=== PATIENT | male | born 1955 | race Caucasian/White ===

== ENCOUNTER 2020-09-06 12:04 | Observation (INO) ==
[2020-09-06] MEDS ORDERED: MIDAZOLAM HCL 5 MG/ML 1 ML VIAL ONE (13:10)
[2020-09-06] MEDS ORDERED: fentaNYL citrate 100 MCG/2 ML VIAL ONE (13:11)
[2020-09-06] MEDS ORDERED: HEPARIN (PORCINE) 1000 UNIT/ML 10 ML (CATH LAB USE ONLY) ONE (13:11)
[2020-09-06] MEDS ORDERED: niCARdipine HCL INJ 2.5 MG/ML 10 ML AMP ONE (13:11)
[2020-09-06] MEDS ORDERED: NITROGLYCERIN/D5W 100MCG/ML 20ML SYR ONE (13:12)
--- NOTE | 2020-09-06 13:24 | Pre Anesthesia Assessment ---
Date of Service September 06, 2020 Pre Sedation Assessment Vital Signs Temp Pulse Resp BP Pulse Ox 09/06/20 12:20 97.3 F L 62 18 222/102 H 99 Cardiovascular RRR, no murmur, no edema Respiratory normal respiratory effort, lungs clear to auscultation Pre-Sedation Airway Assessment Smoking Status: Never smoker Hx Sleep Apnea: No Hx Difficult Intubation: No Short, Thick Neck: No Thyromental Distance: > or= 3.5 Finger Breadths Oral Cavity: + WNL Mallampati Class: II ASA: ASA2 NPO Status Date of Last Intake of Fluids: 09/06/20 Time of Last Intake of Fluids: 10:00 Date of Last Intake of Solid Food: 09/05/20 Time of Last Intake of Solid Foods: 22:00 Procedure Planning Contraindications for Sedation: none Current Medications Reviewed: Yes Notes The planned sedation has been discussed with the patient. Informed Consent was obtained. I have identified the patient, determined the appropriateness of sedation and have assessed the patient immediately prior to the procedure. All medicine(s) and interventions are by my order.
--- NOTE | 2020-09-06 13:25 | History & Physical Bridge Note ---
Date of Service September 06, 2020 History & Physical Bridge Note I have examined the patient, reviewed the History & Physical and in the interval since the performance of the History & Physical I have noted the following changes of clinical significance: no changes noted
[2020-09-06] MEDS ORDERED: hydrALAZINE HCL 20 MG/ML VIAL ONE (14:54)
[2020-09-06] MEDS ORDERED: ACETAMINOPHEN 325 MG TAB PO PRN (15:49)
[2020-09-06] MEDS ORDERED: ONDANSETRON INJ 2 MG/ML 2 ML VIAL IV PRN (15:49)
[2020-09-06] MEDS ORDERED: CLOPIDOGREL BISULFATE 300 MG TAB PO STA (15:54)
--- NOTE | 2020-09-06 15:55 | Post Anesthesia Assessment ---
Date of Service September 06, 2020 Post Sedation Assessment Vital Signs Temp Pulse Resp BP Pulse Ox 09/06/20 15:46 60 15 99/53 L 98 09/06/20 12:20 97.3 F L 62 18 222/102 H 99 Recovery Score Activity: Moves 4 extremities Respiration: Deep Breath/Cough Circulation: +/-20% PreAnes Value Consciousness: Fully Awake Oxygen Saturation: > 92% On Room Air Post Anesthesia Score: 10 Discharge Sedation Level of Care: Fast Track Phase II Post Sedation Plan On clinical assessment, the patient appears to have tolerated the sedation without complications. Patient is recovering as anticipated. Patient will continue to be monitored by nursing and may be discharged when sedation discharge criteria are met per below protocol. Upon Completions of procedure up to 15 minutes continue every 5 minute vital signs and the P.A.R. score; then discharge to a Phase I or Fast Track to Phase II per the following guidelines: * Discharge Patient to appropriate Phase II area if PAR is 8 or greater or retur n to pre- procedure baseline. The post - procedure orders will be as directed. * If PAR score is less than 8 or not return to pre-procedure baseline then patient will follow Phase I monitoring till PAR is reached for Phase II. The Phase I may be done in procedure room or may call to secure a Phase I area. * If naloxone or flumazenil are used for reversal, hold in Phase I for continued monitoring from when last reversal dose was given for a minimum of 60 minutes or longer pending the nurse and/or physician discretion of patient condition before discharge to Phase II. Please call the Sedation Physician to re-evaluate and complete post-note for discharge to Phase II area. Do NOT discharge from procedure sedation or Phase 1 until post- sedation evaluation note is complete by procedure /sedation MD Sedation Discharge Instructions to be given to the patient at discharge to home.
[2020-09-06] MEDS ORDERED: LOSARTAN POTASSIUM 25 MG TAB PO SCH (16:00)
[2020-09-06] MEDS ORDERED: SODIUM CHLORIDE 0.9% 1000ML 1,000 ML IV SCH (16:00)
--- NOTE | 2020-09-06 16:03 | Post Operative Brief Note ---
PG Immediate Post Op with CF Date of Surgery September 06, 2020 Pre & Post Diagnosis Peripheral artery disease I identified the patient and participated in the time-out.: No Procedure Operation Date: 09/06/20 13:00 Actual Procedures p Angio Extremity Unilateral - Lauro Montejo MD s SC IVUS Noncoronary Initial - MD mary Hennessy Ultrasound Vascular Access - MD mary Hennessy Fem Pop Stent Balloon - MD mary Hennessy Placement Art Occlusive Device - Lauro Montejo MD Surgeon Jordy Montejo MD Chief Medical Director Deibler Estimated Blood Loss 15 Findings Consistent with Post-Op Diagnosis Occluded mid SFA and distal SFA/popliteal stents Angioplasty of SFA to popliteal with 2 drug-eluting balloons Stent placement to proximal SFA (7 x 120 SES) Specimens Specimen Description: none Drains Other Anesthesia Type RN Sedation Complications none Disposition Accompanied Patient To Recovery: No Disposition: PCU Overlapping Procedure I was present for: the critical portions of procedure. I was immediately available: during the entire case. Back up surgeon: was not required during procedure.
[2020-09-06] MEDS ORDERED: CLOPIDOGREL BISULFATE 300 MG TAB ONE (16:05)
--- NOTE | 2020-09-06 23:31 | Endovascular Procedure Note ---
PG Endovascular Procedure Rpt Pre & Post Diagnosis Operation Date: 09/06/20 13:00 <No data on this case meets the specified criteria> I identified the patient and participated in the time-out.: Yes Procedure Operation Date: 09/06/20 13:00 Actual Procedures p Angio Extremity Unilateral - MD mary Hennessy SC IVUS Noncoronary Initial - MD mary Hennessy Ultrasound Vascular Access - MD mary Hennessy Fem Pop Stent Balloon - MD mary Hennessy Placement Art Occlusive Device - Lauro Montejo MD Surgeon Jordy Montejo MD Heat Treat Technician Deibler Estimated Blood Loss 15 Findings Consistent with Post-Op Diagnosis Abdominal aorta--no significant aneurysmal or stenotic disease Right lower extremity-- -Common iliac, external iliac, internal iliac widely patent -GROUP HOME COUNSELOR, profunda widely patent -SFA 100% lateproximal occlusion extending through previous SFA/popliteal stents. -Popliteal reconstitutes in the midsegment with mild disease. 50% distal disease just prior to takeoff of GORAN. -GORAN 60 to 70% proximal stenosis, mid/distal vessel widely patent to the foot -SUPERVISOR [employer] TEXTILE 50% proximal, 100% occlusion in the midsegment Proneal widely patent to the ankle Left lower extremity-- -Common iliac, external iliac, internal iliac widely patent -GROUP HOME COUNSELOR, profunda widely patent Anesthesia Type RN Sedation Radiation Exposure (mGv) Radiation (mGy): 20.7 Contrast Contrast: 120 Complications none Disposition Accompanied Patient To Recovery: Yes Disposition: PCU Description of Procedure Left GROUP HOME COUNSELOR obtained under ultrasound guidance, short 5Fr sheath placed Abdominal aortogram and proximal right lower extremity angiogram performed with RIM catheter. Selective angiography with angled glide catheter placed in proximal SFA 6 Fr 45 cm destination sheath placed from left GROUP HOME COUNSELOR to right SFA. SFA occlusion crossed with angled glide catheter, glide advantage wire and standard J-wire. Intraluminal position distally confirmed via injection through glide catheter. 0.35 wire exchanged for a V 18 wire [employer] Art IVUS catheter placed in the popliteal. Pullback revealed diffuse chronic thrombus/atherosclerotic disease extending throughout stents to proximal SFA. Wire appeared to cross subintamally in proximal SFA before stent on IVUS. Consideration given to Rotarex but not used due to non-intraluminal wire segment. Angioplasty of occluded SFA to popliteal with 4.0 Proximal SFA to popliteal treated with 6.0 x 150, 6.0 x 220 Lutonix drug-eluting balloons Evidence of residual dissection in proximal SFA prior to stent. Proximal SFA stented with 7.0 x 120 self-expanding stent overlapping proximal aspect of prior stents. New stent and mid SFA stent postdilated with 7.0 balloon IA vasodilators administered Questionable spasm/thrombus and popliteal after stent Popliteal dilated with 5.0 balloon with good angiographic result and no apparent residual stenosis/dissection Post procedure good angiographic result, well-expanded stents, no evidence of dissection, brisk two-vessel runoff to the foot. Contrast used: 120 Moderate sedation: [id number] Access closure: Star close Summary: 1. Right lower extremity --100% occluded proximal SFA, mid SFA to popliteal stents with reconstitution in the mid popliteal and two-vessel runoff to the foot (occluded mid SUPERVISOR [employer]BE[employer] TEXTILE, 60 to 70% proximal GORAN). 2. Left lower extremity --widely patent iliacs, GROUP HOME COUNSELOR 3. Successful angioplasty of proximal SFA and mid SFA/popliteal in-stent occlusion with 2 drug-eluting balloons (6.0 x 150, 6.0 x 220 Lutonix) and stenting of proximal SFA with a 7.0 x 120 mm self-expanding stent. Recommendations: Continue clopidogrel and Xarelto 2.5 mg twice daily Follow-up non-invasive vascular testing in 2 weeks. I attest to the content of the Intraoperative Record and any orders documented therein. Any exceptions are noted below. Vascular Charges Angiography/Venography Procedure 1: Angiography/Venography charges: [id number] Initial 3rd order or selective abd, pelvic, or LE branch Lower Extremity Interventions Procedure 1: Lower Extremity Intervention charges: [id number] Stent placement(s), femoral, popliteal artery(s), unilateral Additional Services Procedure 1: Additional Services Charges: 80666 Ultrasound guidance - vascular access Procedure 2: Additional Services Charges: 10804 Intravascular ultrasound; initial noncoronary vessel Procedure 3: Additional Services Charges: 35645 Moderate sedation initial 15 min Procedure 4: Additional Services Charges: 41509 Moderate sedation, each additional 15 min
--- NOTE | 2020-09-06 23:46 | Discharge Summary ---
Date of Service September 06, 2020 Admission HPI Per Admitting Provider Patient returns for right lower extremity angiogram in the setting of critical limb ischemia and diabetic foot ulceration. Specialty Data Specialty Data 1. Right lower extremity --100% occluded proximal SFA, mid SFA to popliteal stents with reconstitution in the mid popliteal and two-vessel runoff to the foot (occluded mid LAWN TECHNICIAN, 60 to 70% proximal GORAN). 2. Left lower extremity --widely patent iliacs, CHIEF ENGINEER PRODUCTION 3. Successful angioplasty of proximal SFA and mid SFA/popliteal in-stent occlusion with 2 drug-eluting balloons (6.0 x 150, 6.0 x 220 Lutonix) and stenting of proximal SFA with a 7.0 x 120 mm self-expanding stent. Discharge Data Procedures Performed Operation Date: 09/06/20 13:00 Actual Procedures p Angio Extremity Unilateral - Lauro Mnotejo MD s SC IVUS Noncoronary Initial - MD mary Hennessy Ultrasound Vascular Access - MD mary Hennessy Fem Pop Stent Balloon - MD mary Hennessy Placement Art Occlusive Device - Lauro Montejo MD Hospital Course (1) PAD (peripheral artery disease): Right lower extremity angiogram revealed 100% proximal SFA occlusion with reconstitution in the mid popliteal artery and two-vessel distal runoff (GORAN, peroneal). Underwent endovascular invention with angioplasty of SFA to popliteal with 2 drug-eluting balloons. Proximal SFA was stented with a single self-expanding stent. Post procedure patient was admitted for brief observation. He had no apparent access site complications. Denied significant pain. Discharged home on clopidogrel and PAD dose Xarelto. Follow-up in 2 weeks with repeat noninvasive vascular testing. Continued wound care. Discharge Instructions Home Medications atorvastatin 40 mg tablet 40 mg PO HS 11/18/18 [History Confirmed 09/06/20] losartan 25 mg tablet 12.5 mg PO QAM tab 11/18/18 [History Confirmed 09/06/20] metformin 850 mg tablet 850 mg PO TID 11/18/18 [History Confirmed 09/06/20] metoprolol succinate 50 mg capsule sprinkle, ext. release 24 hr 50 mg PO QAM 11/18/18 [History Confirmed 09/06/20] multivitamin 1 cap PO QAM 11/18/18 [History Confirmed 09/06/20] nitroglycerin 0.4 mg sublingual tablet 0.4 mg SL Q5M PRN 11/18/18 [History Confirmed 09/06/20] ascorbic acid (vitamin C) [Vitamin C] 500 mg PO QAM 04/20/20 [History Confirmed 09/06/20] cholecalciferol (vitamin D3) [Vitamin D3] 25 mcg PO QAM 04/20/20 [History Confirmed 09/06/20] glipizide 5 mg PO QAM 04/20/20 [History Confirmed 09/06/20] clopidogrel 75 mg PO QAM 04/28/20 [History Confirmed 09/06/20] rivaroxaban [Xarelto] 2.5 mg PO BID #60 tab 09/06/20 [Rx] Coding Level of Care Code 40973 OBS Care - Discharge Diagnoses PAD (peripheral artery disease) I73.9
[2020-09-07] MEDS ORDERED: CLOPIDOGREL BISULFATE 75 MG TAB PO SCH (09:00)
== END 2020-09-06 20:50 | disposition home or self-care (01) ==
LOC: 2S 12:04 → CC 12:04
PROC: CLB.AEU (2020-09-06 13:00)

== ENCOUNTER 2020-09-21 13:57 | Inpatient (IN) ==
[2020-09-21] MEDS ORDERED: Heparin IV Adult Wt-Based Standard WITH Bolus Protocol IV STA (13:59)
[2020-09-21] MEDS ORDERED: HEPARIN SOD (PORCINE) 1000 UNIT/ML IV ONE (14:14)
[2020-09-21] MEDS ORDERED: HEPARIN SODIUM/DEXTROSE 25,000 UNITS/500 ML BAG IV SCH (14:15)
[2020-09-21 14:35] LABS: Basophils # (auto) 0.02 K/uL (0-0.2); Basophils % (auto) 0.2 %; Eosinophils % (auto) 1.6 %; Hemoglobin 12.5 g/dL (14.0-18.0); Immature Granulocytes # (auto) 0.07 K/uL (0.00-0.02); Immature Granulocytes % (auto) 0.5 %; Lymphocytes # (auto) 2.72 K/uL (1.2-3.4); Lymphocytes % (auto) 21.4 %; Mean Corpuscular Hemoglobin 27.9 pg (25-34); Mean Corpuscular Hgb Conc 32.9 g/dL (32-36); Mean Corpuscular Volume 84.8 fL (80-100); Mean Platelet Volume 9.8 fL (7.4-10.4); Monocytes # (auto) 0.97 K/uL (0.11-0.59); Monocytes % (auto) 7.6 %; Neutrophils # (auto) 8.75 K/uL (1.4-6.5); Neutrophils % (auto) 68.7 %; Platelet Count 411 K/uL (130-400); RDW Coefficient of Variation 13.4 % (11.5-14.5); RDW Standard Deviation 41.4 fL (36.4-46.3); Red Blood Count 4.48 M/uL (4.7-6.1); White Blood Count 12.73 K/uL (4.8-10.8)
[2020-09-21 14:50] LABS: INR 1.1 (0.9-1.1); Partial Thromboplastin Time 27.2 Seconds (21.0-31.0); Prothrombin Time 10.7 Seconds (9.0-12.0)
[2020-09-21 14:53] LABS: Alanine Aminotransferase 29 U/L (12-78); Albumin Level 4.2 gm/dl (3.4-5.0); Aspartate Aminotransferase 17 U/L (15-37); BUN Creatinine Ratio 17.8 (10-20); Blood Urea Nitrogen 19 mg/dl (7-18); Calcium 9.8 mg/dl (8.5-10.1); Carbon Dioxide 25 mmol/L (21-32); Chloride 104 mmol/L (98-107); Creatinine Clr Calc Pharmacy 66.7 ml/min; Est GFR (African American) 83.4 ml/min; Glucose 114 mg/dl (70-99); Lipase 366 U/L (73-393); Potassium 4.4 mmol/L (3.5-5.1); Sodium 136 mmol/L (136-145)
--- NOTE | 2020-09-21 14:54 | Emergency Department Note ---
Impression & Plan Arterial occlusion, lower extremity, Acute leg pain, Leukocytosis ED Provider Note NAME: LYNDA ANNE AGE: 65 SEX: M : 1955 ARRIVES VIA: Walk-In INFORMANT: Patient, Dr. Montejo ED PROVIDER(S): Gato Dial DO CHIEF COMPLAINT: R leg pain HPI: Patient is a 65-year-old male who is status post endovascular intervention of right SFA/popliteal arteries on 09/06/20. Patient presented in follow-up to cardiovascular Dr. Montejo's office and was found to have evidence of limb ischemia. They performed an ultrasound which showed occlusion of SFA/popliteal arteries with severely diminished flow in the TPT/GORAN. Toe pressure undetectable. Also has worsening of his heel wound and a new right 5th digit ulcer. Patient was referred to the emergency department for hospital admission. He denies all other complaints. Pain is currently only a 2 out of 10 in the leg. It is worse with exertion. Denies any headache or change in vision. No chest pain or shortness of breath. No nausea vomiting or diarrhea. ROS: See above HPI for pertinent positives & negatives. A total of 10 systems reviewed and were otherwise negative. PAST MEDICAL HISTORY:See Below PAST SURGICAL HISTORY:See Below FAMILY HISTORY:See Below SOCIAL HISTORY:See Below HOME MEDICATIONS:See Below ALLERGIES:See Below VITALS:See Below PHYSICAL EXAMINATION: GENERAL: Sitting up in bed, alert, well appearing, well nourished, no distress, non-toxic EYE EXAM: normal conjunctiva. OROPHARYNX: no exudate, no erythema, lips, buccal mucosa, and tongue normal and mucous membranes are moist NECK: supple, no nuchal rigidity, no adenopathy, non-tender LUNGS: Clear to auscultation. Normal chest wall mechanics HEART: no murmurs, S1 normal and S2 normal ABDOMEN: abdomen soft, non-tender, normo-active bowel sounds, no masses, no rebound or guarding. UPPER EXTREMITIES: upper extremities are grossly normal. LOWER EXTREMITIES: Right lower extremity is cool to the touch. DP and PT not palpable on the right lower extremity. Flexion extension of the hip knee and ankle intact. Skin is intact. Ulcer of the right heel. NEURO EXAM: Normal sensorium, cranial nerves II-XII grossly intact, normal sp eech, no gross weakness of arms, no gross weakness of legs. MEDICAL DECISION MAKING: Patient is a 65-year-old male who was seen in the office by Dr. Montejo and had an ultrasound done which showed occlusion of SFA/popliteal arteries with severely diminished flow in the TPT/GORAN. Dr. Montejo called over to inform me of this and requested IV heparin and once the [facility] is open they will take him upstairs to perform intra-arterial thrombolysis later today. IV was established blood work was obtained. Labs show mild leukocytosis of 12,000. No significant anemia. INR was unremarkable. BMP with LFTs bilirubin and lipase was unremarkable. Covid was pending. Dr. Montejo requested no additional studies. Discussed with the hospitalist the patient will be admitted to Dr. Vela service and will go to [facility] for interventional thrombolysis shortly. Of note he denies any bleeding risk factors including dark tarry stools, bright red blood per rectum, coughing up blood, vomiting blood, urinating blood, recent trauma or surgery or any previous brain bleeds. Triage Nursing notes reviewed. Limited review of prior medical records performed Vital Signs: reviewed and remarkable for HTN. Differential diagnosis: DVT, musculoskeletal, infection, joint effusion, trauma, lymphedema, idiopathic, CHF, ischemia, arterial occlusion as well as other pathologies. ER treatment provided: See below Diagnostics interpreted by me: Cardiac Monitoring: An order was placed for continuous cardiac monitoring. The monitor shows a rate of 62 with sinus rhythm. Laboratory studies: As stated above and show below. Imaging studies: See below Consultation(s): Discussed with Dr. Montejo recommended heparin and he will taken to the [facility] Discussed with Yanna who is working with Dr. Vela for admission Procedures: none Critical Care: I have personally spent 31 minutes of critical care time in the direct management of this patient. This includes bedside care, interpretation of diagnostic studies, and testing, discussion with consultants, patient, and family members, and other required patient management activities. This 31 minutes is in excess of all separately billable procedures. Past Med/Surg History Medical History Anemia CAD (coronary artery disease) 2007 CABG x 2, MONET-LAD, SVG-ramus. Complicated by post-op pericarditis. Diabetes mellitus NIDDM Diabetic ulcer of right heel currently under care of wound clinic. History of cardiac arrest 06/2010, rec'd multiple AED shocks with ROSC. Cath showed patent grafts and preserved LV function EF 55-59%. ICD placed 07/10/10. History of pericarditis HTN (hypertension) Hyperlipemia, mixed ICD (implantable cardioverter-defibrillator) in place recently changed 04/21/[address] Morales at [facility] Myocardial infarction On anticoagulant therapy plavix daily PAD (peripheral artery disease) Personal history of diabetic foot ulcer Rosacea Surgical History H/O hand surgery History of angioplasty Dr. Montejo 04/23/20 @ [facility] d/t PAD--per pt reason for plavix History of ankle surgery ORIF Left ankle History of colonoscopy History of tonsillectomy Hx of CABG x2 vessels, ~2009. TREVOR Knight. Follows with Dr. Vega. S/P placement of cardiac pacemaker Family History Other No family history of adverse response to anesthesia Social History Smoking Status: Never smoker Second Hand Exposure: No; Hx Alcohol Use: No Hx Substance Use: No Preferred Language: Micronesian Communication Ability: Effective Visual Impairment: Partially Limited Hearing Ability: Normal Riprap Placing Supervisor Required: No Beliefs That Will Affect Care: None marital status: Current Living Situation: Spouse current occupational status: employed current occupation: [employer] Feels Safe at Home: Yes Assistive Devices: None Allergies Allergies Allergy/AdvReac Type Severity Reaction Status Date / Time penicillin G Allergy Intermediate Rash Verified 09/06/20 15:59 Home Meds Home Medications Medication Instructions Recorded Confirmed atorvastatin 40 mg tablet 40 mg PO HS 11/18/18 09/06/20 losartan 25 mg tablet 12.5 mg PO QAM tab 11/18/18 09/06/20 metformin 850 mg tablet 850 mg PO TID 11/18/18 09/06/20 metoprolol succinate 50 mg capsule 50 mg PO QAM 11/18/18 09/06/20 sprinkle, ext. release 24 hr multivitamin 1 cap PO QAM 11/18/18 09/06/20 nitroglycerin 0.4 mg sublingual 0.4 mg SL Q5M PRN 11/18/18 09/06/20 tablet ascorbic acid (vitamin C) 500 mg 500 mg PO QAM 04/20/20 09/06/20 tablet (Vitamin C) cholecalciferol (vitamin D3) 25 25 mcg PO QAM 04/20/20 09/06/20 mcg (1,000 unit) tablet (Vitamin D3) glipizide 5 mg tablet 5 mg PO QAM 04/20/20 09/06/20 Previous Rx's Medication Instructions Recorded rivaroxaban 2.5 mg tablet (Xarelto) 2.5 mg PO BID #60 tab 09/06/20 tramadol 50 mg tablet 50 mg PO BID PRN #7 tab 09/07/20 clopidogrel 75 mg tablet 75 mg PO QAM #90 tab 09/15/20 Results & Data (ED) Vital Signs Vital Signs - 24 hr 09/21/20 14:01 Temperature 36.7 C Temperature Source Oral Pulse Rate 69 Pulse Rhythm Regular Pulse Strength Normal Respiratory Rate 16 Respiratory Effort / Characteristics Non-Labored Respiratory Depth Normal Respiratory Pattern Regular Blood Pressure 161/89 H Blood Pressure Mean 113 Blood Pressure Position Sitting Pulse Oximetry 98 Oxygen Delivery Method Room Air Sepsis Recent Fever Within 48 Hours No Sepsis New/Unexplained Change in Mental Status N/A Sepsis Action Taken by Nursing No Action Required Laboratory Data Result diagrams: 09/21/20 14:20 09/21/20 14:20 Lab Results 09/21/20 09/21/20 Range/Units 14:20 14:20 WBC 12.73 H (4.8-10.8) K/uL RBC 4.48 L (4.7-6.1) M/uL Hgb 12.5 L (14.0-18.0) g/dL Hct 38.0 L (42-52) % MCV 84.8 (80-100) fL MCH 27.9 (25-34) pg MCHC 32.9 (32-36) g/dL RDW Std Deviation 41.4 (36.4-46.3) fL RDW Coeff of Ella 13.4 (11.5-14.5) % Plt Count 411 H (130-400) K/uL MPV 9.8 (7.4-10.4) fL Immature Gran % (Auto) 0.5 % Neut % (Auto) 68.7 % Lymph % (Auto) 21.4 % [place] % (Auto) 7.6 % Eos % (Auto) 1.6 % Baso % (Auto) 0.2 % Neut # (Auto) 8.75 H (1.4-6.5) K/uL Lymph # (Auto) 2.72 (1.2-3.4) K/uL [place] # (Auto) 0.97 H (0.11-0.59) K/uL Eos # (Auto) 0.20 (0-0.5) K/uL Baso # (Auto) 0.02 (0-0.2) K/uL Immature Gran # (Auto) 0.07 H (0.00-0.02) K/uL PT 10.7 (9.0-12.0) Seconds INR 1.1 (0.9-1.1) APTT 27.2 (21.0-31.0) Seconds PTT Ratio 1.0 Administered Medications Heparin Sodium/Dextrose (Heparin Sodium/Dextrose) 25,000 units in 500 mls @ 0.02 mls/hr IV .Q24H MICHAEL; Protocol Stop: 10/21/20 14:14 Last Admin: 09/21/20 14:46 Dose: 1,250 units/hr, 25 mls/hr Documented by: [id number] Cosigned by: [id number] Discontinued Medications Heparin Sodium (Porcine) (Heparin Sod (Porcine) 1000 Unit/Ml) 1 units IV NOW ONE Stop: 09/21/20 14:15 Last Admin: 09/21/20 14:46 Dose: Not Given Documented by: [id number] Heparin Sodium/Dextrose (Heparin Iv Adult Wt-Based Standard With Bolus Protocol) 1 ea IV NOW STA; Protocol Stop: 09/21/20 14:00 Last Admin: 09/21/20 14:46 Dose: Not Given Documented by: [id number] Discharge Plan Visit Data Chief Complaint: Leg Injury/Pain Stated Complaint: RIGHT LEG PROBLEMS/NOT GETTING BLOOD FLOW - REF ED Provider: Gato Dial Discharge Problem: Arterial occlusion, lower extremity, Acute leg pain, Leukocytosis Forms Stand Alone Forms: My [facility] [employer] Prescriptions Prescriptions: No Action metformin 850 mg tablet 850 mg PO TID RF: 0 losartan 25 mg tablet 25 mg PO QAM RF: 0 metoprolol succinate 50 mg capsule,sprinkle,ER 24hr 75 mg PO QAM RF: 0 atorvastatin 40 mg tablet 40 mg PO HS RF: 0 nitroglycerin 0.4 mg tablet, sublingual 0.4 mg SL Q5M PRN (Reason: Chest Pain) RF: 0 multivitamin capsule 1 cap PO QAM RF: 0 tramadol 50 mg tablet 50 mg PO BID PRN (Reason: pain) Qty: 7 RF: 0 clopidogrel 75 mg tablet 75 mg PO QAM Qty: 90 RF: 1 ascorbic acid (vitamin C) [Vitamin C] 500 mg Tablet 500 mg PO QAM RF: 0 cholecalciferol (vitamin D3) [Vitamin D3] 25 mcg (1,000 unit) Tablet 25 mcg PO QAM RF: 0 glipizide 5 mg Tablet 5 mg PO QAM RF: 0 doxycycline hyclate 100 mg tablet 100 mg PO 3XWK RF: 0 Xarelto 2.5 mg tablet 2.5 mg PO BID Qty: 60 RF: 0 Referrals Referrals: Carol Stein MD [Primary Care Provider] - Discharge Problem: Acute leg pain Qualifiers: Laterality: right Qualified Code(s): M79.604 - Pain in right leg Leukocytosis Qualifiers: Leukocytosis type: unspecified Qualified Code(s): D72.829 - Elevated white blood cell count, unspecified
[2020-09-21 14:58] LABS: Albumin Globulin Ratio 0.9 (0.9-2); Alkaline Phosphatase 84 U/L (45-117); Bilirubin,Total 0.6 mg/dl (0.2-1); Globulin 4.6 gm/dl (2.5-4.0); Total Protein 8.8 gm/dl (6.4-8.2); Troponin I < 0.015 ng/ml (0-0.045)
--- NOTE | 2020-09-21 15:07 | History & Physical Report ---
Date of Service September 21, 2020 Assessment & Plan (1) Arterial occlusion, lower extremity: (2) Acute leg pain: (3) PAD (peripheral artery disease): Plan: This is a 65-year-old male with PMH of PAD with recent endovascular intervention with right SFA/popliteal arteries on 09/06/[address] Montejo, type 2 diabetes, dyslipidemia, hypertension, s/p pacemaker placement and other medical problems listed below who presents after vascular follow-up with right lower extremity pain and is s/p intra-arterial thrombolysis by Dr. Montejo. Presented to vascular follow up appointment today with evidence of acute limb ischemia Right lower extremity arterial duplex reveals occlusion of SFA/popliteal arteries with severely diminished flow in the TPT/GORAN S/p intra-arterial thrombolysis by Dr. Montejo with successful placement of TPA infusion catheter In ICU for further monitoring Mgmt per produce clerk, interventional cardiology (4) Diabetes mellitus, type II: Plan: A1c 10 in 2019 - repeat pending Hold home agents SSI while in-patient Glycemic consult placed BSG AC HS (5) HTN (hypertension): Plan: Continue home losartan, Toprol (6) CAD (coronary artery disease): Plan: Stable H/o CABG in 2007 Continue statin Code status: FULL PCP: Emil Dispo: Admitted to ICU Patient seen in collaboration with Dr. Vela. Please see addendum. History of Present Illness Chief Complaint: This is a 59 right lower extremity pain Primary Care Provider: Carol Stein MD This is a 65-year-old male with PMH of PAD with recent endovascular intervention with right SFA/popliteal arteries on 09/06/[address] Montejo, type 2 diabetes, dyslipidemia, hypertension, s/p pacemaker placement and other medical problems listed below who presents after vascular follow-up with right lower extremity pain. Developed pain in her right lower extremity 5 days following endovascular procedure on right lower extremity. Describes pain as tight and squeezing in foot as well as tender to touch on lateral aspect of broussard. Also with worsening wound on R heel and new wound on R 5th toe. Has been taking clopidogrel and Xarelto 2.5 mg twice daily since procedure. Was seen for vascular follow-up today with Doppler findings concerning for acute limb ischemia with plans for intra-arterial thrombolysis today. Patient was sherly william in ER prior to procedure in cardiovascular suite. States that pain in right lower extremity was a 7 out of 10 and had been since that morning. Otherwise, feeling well. Denied any fever, chills, lightheadedness, headache, chest pain, shortness of breath, nausea, vomiting, abdominal pain, dysuria, diarrhea or constipation. Follows with PCP Dr. Stein. Allergies Allergy/AdvReac Type Severity Reaction Status Date / Time penicillin G Allergy Intermediate Rash Verified 09/21/20 14:53 Home Medications Medication Instructions Recorded Confirmed Type losartan 25 mg tablet 12.5 mg PO QAM tab 11/18/18 09/21/20 History metformin 850 mg tablet 850 mg PO TID 11/18/18 09/21/20 History metoprolol succinate 50 mg capsule 75 mg PO QAM 11/18/18 09/21/20 History sprinkle, ext. release 24 hr nitroglycerin 0.4 mg sublingual 0.4 mg SL Q5M PRN 11/18/18 09/21/20 History tablet ascorbic acid (vitamin C) 500 mg 500 mg PO QAM 04/20/20 09/21/20 History tablet (Vitamin C) cholecalciferol (vitamin D3) 25 25 mcg PO QAM 04/20/20 09/21/20 History mcg (1,000 unit) tablet (Vitamin D3) glipizide 5 mg tablet 5 mg PO QAM 04/20/20 09/21/20 History rivaroxaban 2.5 mg tablet (Xarelto) 2.5 mg PO BID #60 tab 09/06/20 09/21/20 Rx tramadol 50 mg tablet 50 mg PO BID PRN #7 tab 09/07/20 09/21/20 Rx clopidogrel 75 mg tablet 75 mg PO QAM #90 tab 09/15/20 09/21/20 Rx atorvastatin 80 mg tablet 80 mg PO DAILY 09/21/20 09/21/20 History doxycycline hyclate 100 mg tablet 100 mg PO 3XWK 09/21/20 09/21/20 History multivitamin 1 tab PO QAM 09/21/20 09/21/20 History sitagliptin 100 mg tablet (Januvia) 100 mg PO DAILY 09/21/20 09/21/20 History Past Med/Surg History Medical History Anemia CAD (coronary artery disease) 2008 CABG x 2, MONET-LAD, SVG-ramus. Complicated by post-op pericarditis. Diabetes mellitus, type II Diabetic ulcer of right heel currently under care of wound clinic. History of cardiac arrest 06/2010, rec'd multiple AED shocks with ROSC. Cath showed patent grafts and preserved LV function EF 55-59%. ICD placed 07/10/10. History of pericarditis HTN (hypertension) Hyperlipemia, mixed ICD (implantable cardioverter-defibrillator) in place recently changed 04/21/[address] Morales at [facility] Myocardial infarction On anticoagulant therapy plavix daily PAD (peripheral artery disease) Rosacea Surgical History H/O hand surgery History of angioplasty Dr. Montejo 04/23/20 @ [facility] d/t PAD--per pt reason for plavix History of ankle surgery ORIF Left ankle History of colonoscopy History of tonsillectomy Hx of CABG x2 vessels, ~2009. TREVOR Knight. Follows with Dr. Vega. S/P placement of cardiac pacemaker Family History Other Diabetes No family history of adverse response to anesthesia Social History Smoking Status: Never smoker Second Hand Exposure: No; Hx Alcohol Use: No Hx Substance Use: No Preferred Language: Indonesian Communication Ability: Effective Visual Impairment: Partially Limited Hearing Ability: Normal Sales & Service Associate Required: No Beliefs That Will Affect Care: None marital status: Current Living Situation: Spouse current occupational status: employed current occupation: [employer] Other Information That Helps Us Care for You: No Feels Safe at Home: Yes Safety Concerns: Feels Safe At This Time Assistive Devices: None Review of Systems Review of Systems: At least ten systems reviewed and negative except as noted in the HPI. Physical Exam Physical Exam: General Appearance: WD/WN, vitals as above, NAD, sitting up in bed, pleasant, conversing easily Head: normocephalic, atraumatic Eyes: normal inspection, PERRL, conjunctivae normal, anicteric sclerae ENT: external ear and nose normal, oropharynx normal Neck: normal visual inspection, trachea midline, no thyromegaly Respiratory: normal respiratory effort, lungs clear to auscultation, no wheeze, rales, rhonchi. No accessory muscle use Cardiovascular: regular rate, rhythm, no murmur, normal peripheral pulses, no BLE edema. Vessels: no JVD Chest: normal inspection of chest Abdomen/GI: normal bowel sounds, soft, nontender, no hepatosplenomegaly Extremities/Musculoskeletal: R foot cool to touch, pain on palpation. Unable to palpate PT/DP pulses. Wound on R heel, new right 5th digit ulcer, diminished cap refill. Extremities motor strength 5/5 Neurologic: PERRL, EOMI, accommodation nl, no face palsy, no dysarthria, CN's II-XI intact bilaterally and moves all extremities Psychiatric: A+Ox3, euthymic affect Skin: no rashes, normal color, warm/dry Results & Data Results & Data ([facility]) Vital Signs (Past 12 Hours) Vital Signs Temp Pulse Resp BP Pulse Ox 09/21/20 14:01 36.7 C 69 16 161/89 H 98 Laboratory Results Short CBC 09/21/20 Range/Units 14:20 WBC 12.73 H (4.8-10.8) K/uL Hgb 12.5 L (14.0-18.0) g/dL Hct 38.0 L (42-52) % Plt Count 411 H (130-400) K/uL BMP 09/21/20 14:20 Sodium 136 Potassium 4.4 Chloride 104 Carbon Dioxide 25 BUN 19 H Creatinine 1.07 Glucose 114 H Calcium 9.8 Cardiac Enzymes 09/21/20 Range/Units 14:20 Troponin I < 0.015 (0-0.045) ng/ml Liver Function 09/21/20 Range/Units 14:20 Total Bilirubin 0.6 (0.2-1) mg/dl AST 17 (15-37) U/L ALT 29 (12-78) U/L Alkaline Phosphatase 84 (45-117) U/L Albumin 4.2 (3.4-5.0) gm/dl Supervising Physician Co-Signing Physician Notes Attending addendum: The patient was seen and examined in emergency room He is status post recent endovascular stenting of the right lower extremity and presented with pain and ischemia involving the right lower extremity Denies any other symptoms at presentation On examination In moderate pain Hemodynamically stable Chestclear to auscultate bilaterally HeartS1-S2, regular Abdomenbenign Extremitiesno edema, impaired sensation right lower extremity and no palpable pulses in foot CNSalert, awake and oriented x3 His admission labs and imaging studies reviewed Will have emergent thrombolysis and has been on intravenous heparin drip Agree with assessment and plan as outlined above by FRANCIS Hawk DR (1) Acute leg pain Laterality: right Qualified Code(s): M79.604 - Pain in right leg
[2020-09-21] MEDS ORDERED: HEPARIN (PORCINE) 1000 UNIT/ML 10 ML (CATH LAB USE ONLY) ONE (15:32)
[2020-09-21] MEDS ORDERED: MIDAZOLAM HCL 5 MG/ML 1 ML VIAL ONE (15:32)
[2020-09-21] MEDS ORDERED: niCARdipine HCL INJ 2.5 MG/ML 10 ML AMP ONE (15:32)
[2020-09-21] MEDS ORDERED: fentaNYL citrate 100 MCG/2 ML VIAL ONE ×2 (15:32→22:17)
[2020-09-21] MEDS ORDERED: NITROGLYCERIN/D5W 100MCG/ML 20ML SYR ONE (16:01)
[2020-09-21] MEDS ORDERED: HEPARIN 25000 UNIT/500 ML D5W IV ONE (17:10)
[2020-09-21] MEDS ORDERED: ALTEPLASE IV ONE (17:25)
[2020-09-21] MEDS ORDERED: RECOMBINANT IV ONE (17:25)
[2020-09-21] MEDS ORDERED: RECOMBINANT IV SCH (17:30)
[2020-09-21] MEDS ORDERED: SODIUM CHLORIDE 0.9% IV SCH (17:30)
[2020-09-21] MEDS ORDERED: ALTEPLASE IV SCH (17:30)
[2020-09-21] MEDS ORDERED: ACETAMINOPHEN 325 MG TAB PO PRN (17:43)
[2020-09-21] MEDS ORDERED: ONDANSETRON INJ 2 MG/ML 2 ML VIAL IV PRN (17:43)
--- NOTE | 2020-09-21 18:08 | Pre Anesthesia Assessment ---
Date of Service September 21, 2020 Pre Sedation Assessment Vital Signs Temp Pulse Pulse Resp BP BP Pulse Ox 09/21/20 15:35 68 18 139/82 96 09/21/20 14:01 98.1 F 69 16 161/89 H 98 Cardiovascular RRR, no murmur, no edema Respiratory normal respiratory effort, lungs clear to auscultation Pre-Sedation Airway Assessment Smoking Status: Never smoker Hx Sleep Apnea: No Hx Difficult Intubation: No Short, Thick Neck: No Thyromental Distance: > or= 3.5 Finger Breadths Oral Cavity: + WNL Mallampati Class: III ASA: ASA3 NPO Status Date of Last Intake of Fluids: 09/21/20 Time of Last Intake of Fluids: 08:00 Date of Last Intake of Solid Food: 09/21/20 Time of Last Intake of Solid Foods: 08:00 Procedure Planning Contraindications for Sedation: none Current Medications Reviewed: Yes Notes The planned sedation has been discussed with the patient. Informed Consent was obtained. I have identified the patient, determined the appropriateness of s edation and have assessed the patient immediately prior to the procedure. All medicine(s) and interventions are by my order.
--- NOTE | 2020-09-21 18:08 | Post Anesthesia Assessment ---
Date of Service September 21, 2020 Post Sedation Assessment Vital Signs Temp Pulse Pulse Resp BP BP Pulse Ox 09/21/20 15:35 68 18 139/82 96 09/21/20 14:01 98.1 F 69 16 161/89 H 98 Recovery Score Activity: Moves 4 extremities Respiration: Deep Breath/Cough Circulation: +/-20% PreAnes Value Consciousness: Fully Awake Oxygen Saturation: O2 needed for >90% Discharge Sedation Level of Care: Fast Track Phase II Post Sedation Plan On clinical assessment, the patient appears to have tolerated the sedation without complications. Patient is recovering as anticipated. Patient will continue to be monitored by nursing and may be discharged when sedation discharge criteria are met per below protocol. Upon Completions of procedure up to 15 minutes continue every 5 minute vital signs and the P.A.R. score; then discharge to a Phase I or Fast Track to Phase II per the following guidelines: * Discharge Patient to appropriate Phase II area if PAR is 8 or greater or return to pre- procedure baseline. The post - procedure orders will be as directed. * If PAR score is less than 8 or not return to pre-procedure baseline then patient will follow Phase I monitoring till PAR is reached for Phase II. The Phase I may be done in procedure room or may call to secure a Phase I area. * If naloxone or flumazenil are used for reversal, hold in Phase I for continued monitoring from when last reversal dose was given for a minimum of 60 minutes or longer pending the nurse and/or physician discretion of patient condition before discharge to Phase II. Please call the Sedation Physician to re-evaluate and complete post-note for discharge to Phase II area. Do NOT discharge from procedure sedation or Phase 1 until post- sedation evaluation note is complete by procedure /sedation MD Sedation Discharge Instructions to be given to the patient at discharge to home.
[2020-09-21] MEDS ORDERED: GLUCOSE 10 TABS/TUBE PO PRN (18:11)
[2020-09-21] MEDS ORDERED: CARBOHYDRATES FOR HYPOGLYCEMIA PO PRN (18:11)
[2020-09-21] MEDS ORDERED: GLUCAGON FOR INJ 1 MG VIAL SQ PRN (18:11)
[2020-09-21] MEDS ORDERED: DEXTROSE 50% 50 ML SYRINGE IV PRN (18:11)
[2020-09-21] MEDS ORDERED: POLYETHYLENE (MIRALAX) 17 GM PACK PO PRN (18:11)
[2020-09-21] MEDS ORDERED: GLUCOSE 40% GEL 15 GM TUBE PO PRN (18:11)
--- NOTE | 2020-09-21 18:12 | Post Operative Brief Note ---
PG Immediate Post Op with CF Date of Surgery September 21, 2020 Pre & Post Diagnosis PAD I identified the patient and participated in the time-out.: Yes Procedure Operation Date: 09/21/20 15:30 Actual Procedures p Angio Extremity Unilateral - Lauro Montejo MD Surgeon Jordy Montejo MD Combiner cheri salmeron deibler Estimated Blood Loss 10 Findings See Below Occluded SFA/popliteal. GORAN/peroneal reconstitutes via collaterals. Successful placement of TPA infusion catheter Anesthesia Type RN Sedation Complications none Disposition Accompanied Patient To Recovery: No Disposition: Surgical ICU Overlapping Procedure I was present for: the critical portions of procedure. I was immediately available: during the entire case. Back up surgeon: was not required during procedure.
--- NOTE | 2020-09-21 18:58 | Endovascular Procedure Note ---
PG Endovascular Procedure Rpt Pre & Post Diagnosis Peripheral arterial disease I identified the patient and participated in the time-out.: Yes Procedure Operation Date: 09/21/20 15:30 Actual Procedures p Angio Extremity Unilateral - Lauro Montejo MD Surgeon Jordy Montejo MD Director Of Supply Chain cheri salmeron deibler Estimated Blood Loss 10 Findings See Below Abdominal aorta--no significant aneurysmal or stenotic disease Right lower extremity-- -Common iliac, external iliac, internal iliac widely patent -LEAD ESTHETICIAN, profunda widely patent -SFA 100% ostial occlusion extending through previous SFA/popliteal stents. -GORAN reconstitutes proximally and widely patent to the foot. TPT reconstitutes prior to DIESEL TRUCK MECHANIC/peroneal bifurcation 60 to 70% proximal stenosis, mid/distal vessel -DIESEL TRUCK MECHANIC 100% occlusion in the midsegment Peroneal patent with sluggish flow to the ankle Left lower extremity-- -Common iliac, external iliac, internal iliac widely patent -LEAD ESTHETICIAN, profunda widely patent Anesthesia Type RN Sedation Radiation Exposure (mGv) Radiation (mGy): 240 Contrast Contrast: 30 Complications none none Disposition Accompanied Patient To Recovery: No Description of Procedure Left LEAD ESTHETICIAN obtained under ultrasound guidance, short 5Fr sheath placed Abdominal aortogram and proximal right lower extremity angiogram performed with RIM catheter. 6 Fr 45 cm destination sheath placed from left LEAD ESTHETICIAN to right LEAD ESTHETICIAN SFA occlusion crossed with quickcross catheter, glide advantage. 5Fr fountain infusion (20cm) catheter placed over 035 wire into SFA/popliteal Given 5 mg TPA bolus through infusion catheter Sheath/infusion catheter sutured and secured in place Contrast used: 30 Moderate sedation: [id number] Summary: 1. Right lower extremity --100% occluded ostial SFA through popliteal artery with reconstitution in proximal GORAN/TPT and two-vessel runoff to the foot (chronically occluded mid DIESEL TRUCK MECHANIC). 2. Left lower extremity --widely patent iliacs, LEAD ESTHETICIAN 3. Successful thrombolysis catheter placement to right SFA/popliteal artery. Recommendations: TPA infusion 0.5 mg/h overnight Heparin infusion through sheath Serial CBC, fibrinogen during TPA infusion Plan for repeat angiography and additional endovascular invention to right lower extremity tomorrow morning. I attest to the content of the Intraoperative Record and any orders documented therein. Any exceptions are noted below. Vascular Charges Angiography/Venography Procedure 1: Angiography/Venography charges: [id number] Initial 2nd order abd, pelvic or LE branch Thrombolysis/Mechanical Thrombectomy Procedure 1: Thrombolysis/Mechanical Thrombolysis charges: [id number] Transcath arterial infusion for thrombolysis, initial day Additional Services Procedure 1: Additional Services Charges: 66979 Ultrasound guidance - vascular access Procedure 2: Additional Services Charges: 67499 Moderate sedation initial 15 min Procedure 3: Additional Services Charges: 79583 Moderate sedation, each additional 15 min
[2020-09-21] MEDS: INSULIN ASPART 100 UNITS/ML 3 ML PEN SC SCH ×2 (19:10→20:15)
[2020-09-21] MEDS ORDERED: fentaNYL citrate 100 MCG/2 ML VIAL IV STA (19:45)
--- NOTE | 2020-09-21 19:46 | Critical Care Consultation ---
Date of Consultation September 21, 2020 Assessment & Plan (1) Admitted to intensive care unit: Reason Critically Ill: 65-year-old male with reocclusion injury of recent endovascular stenting to the RIGHT lower extremity status post endovascular intervention currently requiring ongoing TPA and heparin drips. NEURO - * CAM ICU: NEGATIVE * Pain: * Patient endorses pain to the RIGHT lower extremity. Likely pain with reperfusion. * Will provide as needed narcotics given degree of discomfort. CARDIAC/VASCULAR - * Acute occlusion of RLE SFA Stent: * s/p endovascular procedure. * Continue w/ Heparin/TPA gtts per provider. * Monitor distal pulses. * Pain control. * Monitor for s/s bleeding. * Hypertension, hyperlipidemia, coronary disease. * Continue home Rx as tolerated. * Monitor on telemetry. RESPIRATORY - * No reported history of pulmonary disease. * Saturating well on room air. GI/NUTRITION - * N.p.o. after midnight pending possible need for return to endovascular lab. RENAL/LYTES - * No significant electrolyte derangements. - * Townsend in place - Strict I&Os. ENDO - * DMII * BSGs per unit protocol. ISS --> gtt per unit policy. HEME - * Stable H&H * Monitor closely w/ trended H&Hs while Heparin/TPA gtts infusing. ID - * No concerns for infectious sources at this time. LINES/IV ACCESS - * PIVs x2 * LEFT Femoral arterial sheath. DVT PROPHYLAXIS - * Hold in the setting of TPA/Heparin infusion. * SCDs I have personally spent 37 minutes of critical care time in the direct managem ent of this patient. This is a life/limb threatening event. This includes time spent evaluating patient, direct bedside care, chart review, placing orders, interpretation of diagnostic studies, discussion with consultants, patient, and family members, as well as other required patient management activities. This time is exclusive of all separately billable procedures, and teaching time and separate from and in addition to any other critical care service time. Thank you for allowing us to participate in the care of this patient. Please refer to my attending physician's documentation for any further recommendations. (2) Arterial occlusion, lower extremity: (3) Acute leg pain: (4) PAD (peripheral artery disease): (5) Diabetic ulcer of right heel: (6) HTN (hypertension): (7) Diabetes mellitus, type II: (8) CAD (coronary artery disease): History of Present Illness Attending Physician: Richard Alas MD History of Present Illness Patient is a 65-year-old male with a significant past medical history of hypertension, diabetes, peripheral arterial disease, diabetic ulcers of the feet, neuropathy, and anemia. The patient presented to the emergency department today after a follow-up visit from his RIGHT SFA/popliteal artery endovascular intervention on 09/06. The patient was noted to have limb ischemia. Patient was started on a heparin drip and taken to the endovascular lab where he underwent angiography of the affected extremity which demonstrated 100% occlusion of the ostial SFA through popliteal artery. Patient had catheter sheath placed and transfusion of TPA and heparin were initiated. Patient brought to the ICU for close monitoring status post endovascular procedure with ongoing TPA/heparin drips. Upon evaluation, the patient is awake, alert, and oriented. He does have dopplerable dorsalis pedal pulse on the RIGHT. He complains of some moderate discomfort to the RIGHT heel. He reports the pain has progressed since intervention. Otherwise, patient denies any complaints of headaches, dizziness, lightheadedness, chest pain, palpitations, shortness of breath, nausea, vomiting, or abdominal discomfort. Allergies Allergy/AdvReac Type Severity Reaction Status Date / Time penicillin G Allergy Intermediate Rash Verified 09/21/20 14:53 Home Medications Medication Instructions Recorded Confirmed Type losartan 25 mg tablet 12.5 mg PO QAM tab 11/18/18 09/21/20 History metformin 850 mg tablet 850 mg PO TID 11/18/18 09/21/20 History metoprolol succinate 50 mg capsule 75 mg PO QAM 11/18/18 09/21/20 History sprinkle, ext. release 24 hr nitroglycerin 0.4 mg sublingual 0.4 mg SL Q5M PRN 11/18/18 09/21/20 History tablet ascorbic acid (vitamin C) 500 mg 500 mg PO QAM 04/20/20 09/21/20 History tablet (Vitamin C) cholecalciferol (vitamin D3) 25 25 mcg PO QAM 04/20/20 09/21/20 History mcg (1,000 unit) tablet (Vitamin D3) glipizide 5 mg tablet 5 mg PO QAM 04/20/20 09/21/20 History rivaroxaban 2.5 mg tablet (Xarelto) 2.5 mg PO BID #60 tab 09/06/20 09/21/20 Rx tramadol 50 mg tablet 50 mg PO BID PRN #7 tab 09/07/20 09/21/20 Rx clopidogrel 75 mg tablet 75 mg PO QAM #90 tab 09/15/20 09/21/20 Rx atorvastatin 80 mg tablet 80 mg PO DAILY 09/21/20 09/21/20 History doxycycline hyclate 100 mg tablet 100 mg PO 3XWK 09/21/20 09/21/20 History multivitamin 1 tab PO QAM 09/21/20 09/21/20 History sitagliptin 100 mg tablet (Januvia) 100 mg PO DAILY 09/21/20 09/21/20 History Patient History Medical History Anemia CAD (coronary artery disease) 2007 CABG x 2, MONET-LAD, SVG-ramus. Complicated by post-op pericarditis. Diabetes mellitus, type II Diabetic ulcer of right heel currently under care of wound clinic. History of cardiac arrest 06/2010, rec'd multiple AED shocks with ROSC. Cath showed patent grafts and preserved LV function EF 55-59%. ICD placed 07/10/10. History of pericarditis HTN (hypertension) Hyperlipemia, mixed ICD (implantable cardioverter-defibrillator) in place recently changed 04/21/[address] Morales at [facility] Myocardial infarction On anticoagulant therapy plavix daily PAD (peripheral artery disease) Rosacea Surgical History H/O hand surgery History of angioplasty Dr. Montejo 04/23/20 @ [facility] d/t PAD--per pt reason for plavix History of ankle surgery ORIF Left ankle History of colonoscopy History of tonsillectomy Hx of CABG x2 vessels, ~2009. TREVOR Knight. Follows with Dr. Vega. S/P placement of cardiac pacemaker Family History Other Diabetes No family history of adverse response to anesthesia Social History Smoking Status: Never smoker Second Hand Exposure: No; Hx Alcohol Use: No Hx Substance Use: No Preferred Language: Urdu Communication Ability: Effective Visual Impairment: Partially Limited Hearing Ability: Normal [employer] Machine Operator Required: No Beliefs That Will Affect Care: None marital status: Current Living Situation: Spouse current occupational status: employed current occupation: [employer] Other Information That Helps Us Care for You: No Feels Safe at Home: Yes Safety Concerns: Feels Safe At This Time Assistive Devices: None Review of Systems Review of Systems: A complete 10 point review of systems was reviewed with the patient with pertinent positives and negatives as per history of present illness. All else were negative. Physical Exam Physical Exam: VITAL SIGNS - Vital signs and nursing notes were reviewed. GENERAL - 65-year-old male appearing his stated age who is in no acute distress. Communicates well with provider and answers questions appropriately. HEAD - NC/AT. EYES - PERRL with EOMI bilaterally. Sclera anicteric. EARS - No deformities of external structures noted on gross examination bilaterally. NOSE - Midline and without cyanosis. No epistaxis or purulent drainage noted. MOUTH/OROPHARYNX - Without perioral cyanosis. Buccal mucosa pink and moist and without leukoplakia. NECK - Neck with FROM. LUNGS - Chest wall symmetric without accessory muscle use, intercostals retractions, or central cyanosis. Normal vesicular breath sounds CTA B/L. No wheezes, rales, or rhonchi appreciated. CARDIAC - RRR with S1/S2. No murmur, rubs, or gallops appreciated. No reproducible tenderness to palpation appreciated over the anterior chest wall. ABDOMEN - Catheter in place to the LEFT groin. Dressing clean, dry, and intact. Abdominal contour obese without pulsations or visible masses. BS normoactive all four quadrants. No tenderness, palpable masses, hepatosplenomegaly, or ascites noted. EXTREMITIES - No palpable pulse to the RLE. Dopplerable pulse to the RIGHT DP. No pretibial edema present. Diminshed sensation to the RLE. NEUROLOGIC - Cranial nerves II through XII grossly intact. PSYCH - A&Ox3 and cooperates fully with examiner. Pt is very pleasant and interacts well with examiner. Results & Data Results & Data ([facility]) Vital Signs (Past 12 Hours) Vital Signs Temp Pulse Pulse Resp BP BP Pulse Ox 09/21/20 19:00 67 20 186/81 H 98 09/21/20 18:48 67 16 182/77 H 98 09/21/20 18:33 68 16 183/81 H 98 09/21/20 18:18 59 L 16 173/69 H 97 09/21/20 18:14 36.7 C 69 15 197/91 H 96 09/21/20 18:11 36.7 C 70 16 197/91 H 97 09/21/20 15:35 68 18 139/82 96 09/21/20 14:01 36.7 C 69 16 161/89 H 98 Coding Level of Care Code Critical Care 1st 30-74 mins Diagnoses Admitted to intensive care unit Z78.9 Arterial occlusion, lower extremity I70.209 Acute leg pain M79.604 Laterality: right PAD (peripheral artery disease) I73.9 Diabetic ulcer of right heel E11.621; L97.419 HTN (hypertension) I10 Diabetes mellitus, type II E11.9 CAD (coronary artery disease) I25.10 Time Spent (min) 37 (1) Acute leg pain Laterality: right Qualified Code(s): M79.604 - Pain in right leg
[2020-09-21 19:59] LABS: Fibrinogen 431 mg/dl (184-400)
[2020-09-21] MEDS: fentaNYL citrate 100 MCG/2 ML VIAL IV PRN (22:00)
[2020-09-22 00:17] LABS: Basophils # (auto) 0.02 K/uL (0-0.2); Basophils % (auto) 0.2 %; Eosinophils # (auto) 0.17 K/uL (0-0.5); Eosinophils % (auto) 1.7 %; Hematocrit (blood only) 31.4 % (42-52); Hemoglobin 10.5 g/dL (14.0-18.0); Immature Granulocytes # (auto) 0.05 K/uL (0.00-0.02); Immature Granulocytes % (auto) 0.5 %; Lymphocytes # (auto) 1.73 K/uL (1.2-3.4); Lymphocytes % (auto) 17.4 %; Mean Corpuscular Hgb Conc 33.4 g/dL (32-36); Mean Corpuscular Volume 83.7 fL (80-100); Mean Platelet Volume 9.5 fL (7.4-10.4); Monocytes # (auto) 0.98 K/uL (0.11-0.59); Monocytes % (auto) 9.9 %; Neutrophils # (auto) 6.98 K/uL (1.4-6.5); Neutrophils % (auto) 70.3 %; Platelet Count 253 K/uL (130-400); RDW Coefficient of Variation 13.4 % (11.5-14.5); RDW Standard Deviation 40.9 fL (36.4-46.3); Red Blood Count 3.75 M/uL (4.7-6.1); White Blood Count 9.93 K/uL (4.8-10.8)
[2020-09-22] MEDS: fentaNYL citrate 100 MCG/2 ML VIAL IV PRN ×5 (00:17→19:47)
[2020-09-22 01:01] LABS: Fibrinogen 378 mg/dl (184-400)
[2020-09-22 01:13] LABS: Partial Thromboplastin Ratio > 5.3; Partial Thromboplastin Time > 139.0 Seconds (21.0-31.0)
[2020-09-22] MEDS ORDERED: HYDROmorphone INJ 0.5 MG/0.5 ML SYR IV STA ×2 (05:11→22:08)
[2020-09-22 05:31] LABS: Basophils # (auto) 0.01 K/uL (0-0.2); Basophils % (auto) 0.1 %; Eosinophils # (auto) 0.17 K/uL (0-0.5); Eosinophils % (auto) 1.7 %; Hematocrit (blood only) 34.5 % (42-52); Hemoglobin 11.3 g/dL (14.0-18.0); Immature Granulocytes # (auto) 0.04 K/uL (0.00-0.02); Immature Granulocytes % (auto) 0.4 %; Lymphocytes # (auto) 1.79 K/uL (1.2-3.4); Lymphocytes % (auto) 17.4 %; Mean Corpuscular Hemoglobin 27.6 pg (25-34); Mean Corpuscular Hgb Conc 32.8 g/dL (32-36); Mean Corpuscular Volume 84.4 fL (80-100); Mean Platelet Volume 9.5 fL (7.4-10.4); Monocytes # (auto) 1.11 K/uL (0.11-0.59); Monocytes % (auto) 10.8 %; Neutrophils # (auto) 7.14 K/uL (1.4-6.5); Neutrophils % (auto) 69.6 %; Platelet Count 275 K/uL (130-400); RDW Coefficient of Variation 13.3 % (11.5-14.5); RDW Standard Deviation 40.6 fL (36.4-46.3); Red Blood Count 4.09 M/uL (4.7-6.1); White Blood Count 10.26 K/uL (4.8-10.8)
[2020-09-22 06:01] LABS: BUN Creatinine Ratio 16.7 (10-20); Calcium 8.7 mg/dl (8.5-10.1); Creatinine Clr Calc Pharmacy 103.4 ml/min; Est GFR (African American) 114.7 ml/min; Est GFR (Non-African American) 98.9 ml/min; Magnesium 1.7 mg/dl (1.8-2.4); Phosphorus 3.5 mg/dl (2.5-4.9); Potassium 3.8 mmol/L (3.5-5.1)
[2020-09-22 07:21] LABS: Fibrinogen 357 mg/dl (184-400); Partial Thromboplastin Time 27.2 Seconds (21.0-31.0)
[2020-09-22] MEDS: INSULIN ASPART 100 UNITS/ML 3 ML PEN SC SCH ×4 (07:41→20:56)
[2020-09-22 07:57] LABS: Estimated Average Glucose 217 mg/dl; Hemoglobin A1C 9.2 % (4.5-5.6)
[2020-09-22] MEDS ORDERED: fentaNYL citrate 100 MCG/2 ML VIAL ONE ×4 (08:47→11:41)
[2020-09-22] MEDS ORDERED: MIDAZOLAM HCL 5 MG/ML 1 ML VIAL ONE ×2 (08:47→10:33)
[2020-09-22] MEDS ORDERED: MAG SULFATE 50% 1GM/2ML VIAL IV ONE (08:47)
--- NOTE | 2020-09-22 09:34 | Critical Care Progress Note ---
Date of Service September 22, 2020 Assessment & Plan (1) Admitted to intensive care unit: Plan: Reason Critically Ill: 65-year-old male with reocclusion injury of recent endovascular stenting to the RIGHT lower extremity status post endovascular intervention currently requiring ongoing TPA and heparin drips. NEURO - * CAM ICU: NEGATIVE * Pain: * Patient endorses pain to the RIGHT lower extremity. Likely pain with reperfusion. * Will provide as needed narcotics given degree of discomfort. CARDIAC/VASCULAR - * Acute occlusion of RLE SFA Stent: * s/p endovascular procedure. * Monitor distal pulses. * Pain control. * Monitor for s/s bleeding. * Manual closure of 1 catheter entry site to remain supine * Hypertension, hyperlipidemia, coronary disease. * Continue home Rx as tolerated. RESPIRATORY - * No reported history of pulmonary disease. * Saturating well on room air. GI/NUTRITION - * Carb consistent type II diabetic diet. RENAL/LYTES - * No significant electrolyte derangements. - * Townsend in place - Strict I&Os. ENDO - * DMII * BSGs per unit protocol. ISS --> gtt per unit policy. HEME - * Stable H&H ID - * No concerns for infectious sources at this time. LINES/IV ACCESS - * PIVs x2 DVT PROPHYLAXIS - * Hold in the setting of Heparin infusion. * SCDs Clinical update 0 930 patient in [facility] disposition per cardiology (2) Arterial occlusion, lower extremity: (3) Acute leg pain: (4) PAD (peripheral artery disease): (5) Diabetic ulcer of right heel: (6) HTN (hypertension): (7) Diabetes mellitus, type II: (8) CAD (coronary artery disease): Admission and Anticipated Discharge Date Admission Date: September 21, 2020 Supervising Physician Co-Signing Physician Notes Patient was discussed in multidisciplinary rounds Subjective No overnight events, complaining of right calf cramping intermittently during my evaluation after he returned from the procedure area Physical Exam Physical Exam: General: Alert. nontoxic. Skin: Warm, dry, Head: Atraumatic Ears, nose, mouth and throat: airway patent Cardiovascular: Dopplerable pulses bilaterally Respiratory: no respiratory distress Gastrointestinal: Non distended Musculoskeletal: No deformity Results & Data Results & Data ([facility]) Vital Signs (Past 12 Hours) Vital Signs Temp Pulse Resp BP Pulse Ox 09/22/20 07:00 36.6 C 75 16 151/94 H 95 09/22/20 06:00 72 14 174/97 H 97 09/22/20 05:00 68 16 214/98 H 98 09/22/20 04:00 37.1 C 74 16 150/98 H 97 09/22/20 02:00 76 16 180/98 H 95 09/22/20 01:00 84 18 167/83 H 94 09/22/20 00:00 37.4 C 79 16 151/84 H 94 09/21/20 23:00 84 16 161/75 H 94 09/21/20 22:00 76 16 188/79 H 96 Laboratory Results 09/22/20 09/22/20 09/22/20 Range/Units 07:33 05:13 05:13 WBC 10.26 (4.8-10.8) K/uL RBC 4.09 L (4.7-6.1) M/uL Hgb 11.3 L (14.0-18.0) g/dL Hct 34.5 L (42-52) % MCV 84.4 (80-100) fL MCH 27.6 (25-34) pg MCHC 32.8 (32-36) g/dL RDW Std Deviation 40.6 (36.4-46.3) fL RDW Coeff of Ella 13.3 (11.5-14.5) % Plt Count 275 (130-400) K/uL MPV 9.5 (7.4-10.4) fL Immature Gran % (Auto) 0.4 % Neut % (Auto) 69.6 % Lymph % (Auto) 17.4 % Dare % (Auto) 10.8 % Eos % (Auto) 1.7 % Baso % (Auto) 0.1 % Neut # (Auto) 7.14 H (1.4-6.5) K/uL Lymph # (Auto) 1.79 (1.2-3.4) K/uL Dare # (Auto) 1.11 H (0.11-0.59) K/uL Eos # (Auto) 0.17 (0-0.5) K/uL Baso # (Auto) 0.01 (0-0.2) K/uL Immature Gran # (Auto) 0.04 H (0.00-0.02) K/uL PT (9.0-12.0) Seconds INR (0.9-1.1) APTT 27.2 (21.0-31.0) Seconds PTT Ratio 1.0 Fibrinogen 357 (184-400) mg/dl Sodium (136-145) mmol/L Potassium (3.5-5.1) mmol/L Chloride (98-107) mmol/L Carbon Dioxide (21-32) mmol/L Anion Gap (3-11) BUN (7-18) mg/dl Creatinine (0.6-1.4) mg/dl Est Cr Clr Drug Dosing ml/min Est GFR ( Amer) ml/min Est GFR (Non-Af Amer) ml/min BUN/Creatinine Ratio (10-20) Glucose (70-99) mg/dl POC Glucose 168 H (70-99) mg/dl Estimat Average Glucose mg/dl Hemoglobin A1c (4.5-5.6) % Calcium (8.5-10.1) mg/dl Phosphorus (2.5-4.9) mg/dl Magnesium (1.8-2.4) mg/dl Total Bilirubin (0.2-1) mg/dl AST (15-37) U/L ALT (12-78) U/L Alkaline Phosphatase (45-117) U/L Troponin I (0-0.045) ng/ml Total Protein (6.4-8.2) gm/dl Albumin (3.4-5.0) gm/dl Globulin (2.5-4.0) gm/dl Albumin/Globulin Ratio (0.9-2) Lipase (73-393) U/L Nasal Screen MRSA (PCR) (Negative) COVID-19 Eval Order SARS-CoV-2 (PCR) (Negative) 09/22/20 09/22/20 09/22/20 Range/Units 05:13 05:13 00:09 WBC 9.93 (4.8-10.8) K/uL RBC 3.75 L (4.7-6.1) M/uL Hgb 10.5 L (14.0-18.0) g/dL Hct 31.4 L (42-52) % MCV 83.7 (80-100) fL MCH 28.0 (25-34) pg MCHC 33.4 (32-36) g/dL RDW Std Deviation 40.9 (36.4-46.3) fL RDW Coeff of Ella 13.4 (11.5-14.5) % Plt Count 253 (130-400) K/uL MPV 9.5 (7.4-10.4) fL Immature Gran % (Auto) 0.5 % Neut % (Auto) 70.3 % Lymph % (Auto) 17.4 % Dare % (Auto) 9.9 % Eos % (Auto) 1.7 % Baso % (Auto) 0.2 % Neut # (Auto) 6.98 H (1.4-6.5) K/uL Lymph # (Auto) 1.73 (1.2-3.4) K/uL Dare # (Auto) 0.98 H (0.11-0.59) K/uL Eos # (Auto) 0.17 (0-0.5) K/uL Baso # (Auto) 0.02 (0-0.2) K/uL Immature Gran # (Auto) 0.05 H (0.00-0.02) K/uL PT (9.0-12.0) Seconds INR (0.9-1.1) APTT (21.0-31.0) Seconds PTT Ratio Fibrinogen (184-400) mg/dl Sodium 134 L (136-145) mmol/L Potassium 3.8 (3.5-5.1) mmol/L Chloride 102 (98-107) mmol/L Carbon Dioxide 28 (21-32) mmol/L Anion Gap 4.0 (3-11) BUN 12 (7-18) mg/dl Creatinine 0.69 D (0.6-1.4) mg/dl Est Cr Clr Drug Dosing 103.4 ml/min Est GFR ( Amer) 114.7 ml/min Est GFR (Non-Af Amer) 98.9 ml/min BUN/Creatinine Ratio 16.7 (10-20) Glucose 177 H (70-99) mg/dl POC Glucose (70-99) mg/dl Estimat Average Glucose 217 mg/dl Hemoglobin A1c 9.2 H (4.5-5.6) % Calcium 8.7 (8.5-10.1) mg/dl Phosphorus 3.5 (2.5-4.9) mg/dl Magnesium 1.7 L (1.8-2.4) mg/dl Total Bilirubin (0.2-1) mg/dl AST (15-37) U/L ALT (12-78) U/L Alkaline Phosphatase (45-117) U/L Troponin I (0-0.045) ng/ml Total Protein (6.4-8.2) gm/dl Albumin (3.4-5.0) gm/dl Globulin (2.5-4.0) gm/dl Albumin/Globulin Ratio (0.9-2) Lipase (73-393) U/L Nasal Screen MRSA (PCR) (Negative) COVID-19 Eval Order SARS-CoV-2 (PCR) (Negative) 09/22/20 09/21/20 09/21/20 Range/Units 00:00 20:12 18:31 WBC (4.8-10.8) K/uL RBC (4.7-6.1) M/uL Hgb (14.0-18.0) g/dL Hct (42-52) % MCV (80-100) fL MCH (25-34) pg MCHC (32-36) g/dL RDW Std Deviation (36.4-46.3) fL RDW Coeff of Ella (11.5-14.5) % Plt Count (130-400) K/uL MPV (7.4-10.4) fL Immature Gran % (Auto) % Neut % (Auto) % Lymph % (Auto) % Dare % (Auto) % Eos % (Auto) % Baso % (Auto) % Neut # (Auto) (1.4-6.5) K/uL Lymph # (Auto) (1.2-3.4) K/uL Dare # (Auto) (0.11-0.59) K/uL Eos # (Auto) (0-0.5) K/uL Baso # (Auto) (0-0.2) K/uL Immature Gran # (Auto) (0.00-0.02) K/uL PT (9.0-12.0) Seconds INR (0.9-1.1) APTT > 139.0 H* (21.0-31.0) Seconds PTT Ratio > 5.3 Fibrinogen 378 (184-400) mg/dl Sodium (136-145) mmol/L Potassium (3.5-5.1) mmol/L Chloride (98-107) mmol/L Carbon Dioxide (21-32) mmol/L Anion Gap (3-11) BUN (7-18) mg/dl Creatinine (0.6-1.4) mg/dl Est Cr Clr Drug Dosing ml/min Est GFR ( Amer) ml/min Est GFR (Non-Af Amer) ml/min BUN/Creatinine Ratio (10-20) Glucose (70-99) mg/dl POC Glucose 123 H 116 H (70-99) mg/dl Estimat Average Glucose mg/dl Hemoglobin A1c (4.5-5.6) % Calcium (8.5-10.1) mg/dl Phosphorus (2.5-4.9) mg/dl Magnesium (1.8-2.4) mg/dl Total Bilirubin (0.2-1) mg/dl AST (15-37) U/L ALT (12-78) U/L Alkaline Phosphatase (45-117) U/L Troponin I (0-0.045) ng/ml Total Protein (6.4-8.2) gm/dl Albumin (3.4-5.0) gm/dl Globulin (2.5-4.0) gm/dl Albumin/Globulin Ratio (0.9-2) Lipase (73-393) U/L Nasal Screen MRSA (PCR) (Negative) COVID-19 Eval Order SARS-CoV-2 (PCR) (Negative) 09/21/20 09/21/20 09/21/20 Range/Units 18:26 18:00 14:23 WBC (4.8-10.8) K/uL RBC (4.7-6.1) M/uL Hgb (14.0-18.0) g/dL Hct (42-52) % MCV (80-100) fL MCH (25-34) pg MCHC (32-36) g/dL RDW Std Deviation (36.4-46.3) fL RDW Coeff of Ella (11.5-14.5) % Plt Count (130-400) K/uL MPV (7.4-10.4) fL Immature Gran % (Auto) % Neut % (Auto) % Lymph % (Auto) % Dare % (Auto) % Eos % (Auto) % Baso % (Auto) % Neut # (Auto) (1.4-6.5) K/uL Lymph # (Auto) (1.2-3.4) K/uL Dare # (Auto) (0.11-0.59) K/uL Eos # (Auto) (0-0.5) K/uL Baso # (Auto) (0-0.2) K/uL Immature Gran # (Auto) (0.00-0.02) K/uL PT (9.0-12.0) Seconds INR (0.9-1.1) APTT (21.0-31.0) Seconds PTT Ratio Fibrinogen 431 H (184-400) mg/dl Sodium (136-145) mmol/L Potassium (3.5-5.1) mmol/L Chloride (98-107) mmol/L Carbon Dioxide (21-32) mmol/L Anion Gap (3-11) BUN (7-18) mg/dl Creatinine (0.6-1.4) mg/dl Est Cr Clr Drug Dosing ml/min Est GFR ( Amer) ml/min Est GFR (Non-Af Amer) ml/min BUN/Creatinine Ratio (10-20) Glucose (70-99) mg/dl POC Glucose (70-99) mg/dl Estimat Average Glucose mg/dl Hemoglobin A1c (4.5-5.6) % Calcium (8.5-10.1) mg/dl Phosphorus (2.5-4.9) mg/dl Magnesium (1.8-2.4) mg/dl Total Bilirubin (0.2-1) mg/dl AST (15-37) U/L ALT (12-78) U/L Alkaline Phosphatase (45-117) U/L Troponin I (0-0.045) ng/ml Total Protein (6.4-8.2) gm/dl Albumin (3.4-5.0) gm/dl Globulin (2.5-4.0) gm/dl Albumin/Globulin Ratio (0.9-2) Lipase (73-393) U/L Nasal Screen MRSA (PCR) Negative (Negative) COVID-19 Eval Order SARS-CoV-2 (PCR) NEGATIVE (Negative) 09/21/20 09/21/20 09/21/20 Range/Units 14:23 14:20 14:20 WBC (4.8-10.8) K/uL RBC (4.7-6.1) M/uL Hgb (14.0-18.0) g/dL Hct (42-52) % MCV (80-100) fL MCH (25-34) pg MCHC (32-36) g/dL RDW Std Deviation (36.4-46.3) fL RDW Coeff of Ella (11.5-14.5) % Plt Count (130-400) K/uL MPV (7.4-10.4) fL Immature Gran % (Auto) % Neut % (Auto) % Lymph % (Auto) % Dare % (Auto) % Eos % (Auto) % Baso % (Auto) % Neut # (Auto) (1.4-6.5) K/uL Lymph # (Auto) (1.2-3.4) K/uL Dare # (Auto) (0.11-0.59) K/uL Eos # (Auto) (0-0.5) K/uL Baso # (Auto) (0-0.2) K/uL Immature Gran # (Auto) (0.00-0.02) K/uL PT 10.7 (9.0-12.0) Seconds INR 1.1 (0.9-1.1) APTT 27.2 (21.0-31.0) Seconds PTT Ratio 1.0 Fibrinogen (184-400) mg/dl Sodium 136 (136-145) mmol/L Potassium 4.4 (3.5-5.1) mmol/L Chloride 104 (98-107) mmol/L Carbon Dioxide 25 (21-32) mmol/L Anion Gap 7.0 (3-11) BUN 19 H (7-18) mg/dl Creatinine 1.07 (0.6-1.4) mg/dl Est Cr Clr Drug Dosing 66.7 ml/min Est GFR ( Amer) 83.4 ml/min Est GFR (Non-Af Amer) 72.0 ml/min BUN/Creatinine Ratio 17.8 (10-20) Glucose 114 H (70-99) mg/dl POC Glucose (70-99) mg/dl Estimat Average Glucose mg/dl Hemoglobin A1c (4.5-5.6) % Calcium 9.8 (8.5-10.1) mg/dl Phosphorus (2.5-4.9) mg/dl Magnesium (1.8-2.4) mg/dl Total Bilirubin 0.6 (0.2-1) mg/dl AST 17 (15-37) U/L ALT 29 (12-78) U/L Alkaline Phosphatase 84 (45-117) U/L Troponin I < 0.015 (0-0.045) ng/ml Total Protein 8.8 H (6.4-8.2) gm/dl Albumin 4.2 (3.4-5.0) gm/dl Globulin 4.6 H (2.5-4.0) gm/dl Albumin/Globulin Ratio 0.9 (0.9-2) Lipase 366 (73-393) U/L Nasal Screen MRSA (PCR) (Negative) COVID-19 Eval Order Covid19 at [facility] SARS-CoV-2 (PCR) (Negative) 09/21/20 Range/Units 14:20 WBC 12.73 H (4.8-10.8) K/uL RBC 4.48 L (4.7-6.1) M/uL Hgb 12.5 L (14.0-18.0) g/dL Hct 38.0 L (42-52) % MCV 84.8 (80-100) fL MCH 27.9 (25-34) pg MCHC 32.9 (32-36) g/dL RDW Std Deviation 41.4 (36.4-46.3) fL RDW Coeff of Ella 13.4 (11.5-14.5) % Plt Count 411 H (130-400) K/uL MPV 9.8 (7.4-10.4) fL Immature Gran % (Auto) 0.5 % Neut % (Auto) 68.7 % Lymph % (Auto) 21.4 % Dare % (Auto) 7.6 % Eos % (Auto) 1.6 % Baso % (Auto) 0.2 % Neut # (Auto) 8.75 H (1.4-6.5) K/uL Lymph # (Auto) 2.72 (1.2-3.4) K/uL Dare # (Auto) 0.97 H (0.11-0.59) K/uL Eos # (Auto) 0.20 (0-0.5) K/uL Baso # (Auto) 0.02 (0-0.2) K/uL Immature Gran # (Auto) 0.07 H (0.00-0.02) K/uL PT (9.0-12.0) Seconds INR (0.9-1.1) APTT (21.0-31.0) Seconds PTT Ratio Fibrinogen (184-400) mg/dl Sodium (136-145) mmol/L Potassium (3.5-5.1) mmol/L Chloride (98-107) mmol/L Carbon Dioxide (21-32) mmol/L Anion Gap (3-11) BUN (7-18) mg/dl Creatinine (0.6-1.4) mg/dl Est Cr Clr Drug Dosing ml/min Est GFR ( Amer) ml/min Est GFR (Non-Af Amer) ml/min BUN/Creatinine Ratio (10-20) Glucose (70-99) mg/dl POC Glucose (70-99) mg/dl Estimat Average Glucose mg/dl Hemoglobin A1c (4.5-5.6) % Calcium (8.5-10.1) mg/dl Phosphorus (2.5-4.9) mg/dl Magnesium (1.8-2.4) mg/dl Total Bilirubin (0.2-1) mg/dl AST (15-37) U/L ALT (12-78) U/L Alkaline Phosphatase (45-117) U/L Troponin I (0-0.045) ng/ml Total Protein (6.4-8.2) gm/dl Albumin (3.4-5.0) gm/dl Globulin (2.5-4.0) gm/dl Albumin/Globulin Ratio (0.9-2) Lipase (73-393) U/L Nasal Screen MRSA (PCR) (Negative) COVID-19 Eval Order SARS-CoV-2 (PCR) (Negative) Coding Level of Care Code 40870 Subseq Hosp Care Lvl 3 Diagnoses Admitted to intensive care unit Z78.9 Arterial occlusion, lower extremity I70.209 Acute leg pain M79.604 Laterality: right PAD (peripheral artery disease) I73.9 Diabetic ulcer of right heel E11.621; L97.419 HTN (hypertension) I10 Diabetes mellitus, type II E11.9 CAD (coronary artery disease) I25.10 (1) Acute leg pain Laterality: right Qualified Code(s): M79.604 - Pain in right leg
[2020-09-22] MEDS ORDERED: NITROGLYCERIN/D5W 100MCG/ML 20ML SYR ONE (09:44)
[2020-09-22] MEDS ORDERED: HEPARIN (PORCINE) 1000 UNIT/ML 10 ML (CATH LAB USE ONLY) ONE ×2 (09:57→11:35)
[2020-09-22] MEDS ORDERED: hydrALAZINE HCL 20 MG/ML VIAL ONE (10:09)
[2020-09-22] MEDS ORDERED: niCARdipine HCL INJ 2.5 MG/ML 10 ML AMP ONE (10:45)
[2020-09-22] MEDS ORDERED: EPTIFIBATIDE 2 MG/ML 10 ML VIAL (CATH LAB USE ONLY) IV ONE ×2 (12:02→13:17)
[2020-09-22] MEDS ORDERED: EPTIFIBATIDE 0.75 MG/ML 75MG VIAL (CATH LAB USE ONLY) ONE ×2 (13:17→14:11)
[2020-09-22] MEDS: LOSARTAN POTASSIUM 25 MG TAB PO SCH (13:50)
[2020-09-22] MEDS: METOPROLOL SUCC 50MG EXT REL TAB PO SCH (13:50)
[2020-09-22] MEDS: ATORVASTATIN 40 MG TAB PO SCH (13:50)
[2020-09-22] MEDS ORDERED: HEPARIN SODIUM/DEXTROSE 25,000 UNITS/500 ML BAG IV SCH (14:00)
--- NOTE | 2020-09-22 14:13 | Post Anesthesia Assessment ---
Date of Service September 22, 2020 Post Sedation Assessment Vital Signs Temp Pulse Pulse Resp BP Pulse Ox 09/22/20 14:00 94 H 18 103/85 98 09/22/20 13:50 94 H 18 90/65 L 96 09/22/20 07:00 97.9 F 75 16 151/94 H 95 09/22/20 06:00 72 14 174/97 H 97 09/22/20 05:00 68 16 214/98 H 98 09/22/20 04:00 98.8 F 74 16 150/98 H 97 09/22/20 02:00 76 16 180/98 H 95 09/22/20 01:00 84 18 167/83 H 94 09/22/20 00:00 99.3 F 79 16 151/84 H 94 09/21/20 23:00 84 16 161/75 H 94 09/21/20 22:00 76 16 188/79 H 96 09/21/20 21:00 69 14 166/84 H 95 09/21/20 20:00 67 16 195/85 H 96 09/21/20 19:00 67 20 186/81 H 98 09/21/20 18:48 67 16 182/77 H 98 09/21/20 18:33 68 16 183/81 H 98 09/21/20 18:18 59 L 16 173/69 H 97 09/21/20 18:14 98.1 F 69 15 197/91 H 96 09/21/20 18:11 98.1 F 70 16 197/91 H 97 09/21/20 15:35 68 18 139/82 96 Recovery Score Activity: Moves 4 extremities Respiration: Deep Breath/Cough Circulation: +/-20% PreAnes Value Consciousness: Fully Awake Oxygen Saturation: O2 needed for >90% Discharge Sedation Level of Care: Fast Track Phase II Post Sedation Plan On clinical assessment, the patient appears to have tolerated the sedation without complications. Patient is recovering as anticipated. Patient will continue to be monitored by nursing and may be discharged when sedation discharge criteria are met per below protocol. Upon Completions of procedure up to 15 minutes continue every 5 minute vital signs and the P.A.R. score; then discharge to a Phase I or Fast Track to Phase II per the following guidelines: * Discharge Patient to appropriate Phase II area if PAR is 8 or greater or return to pre- procedure baseline. The post - procedure orders will be as directed. * If PAR score is less than 8 or not return to pre-procedure baseline then patient will follow Phase I monitoring till PAR is reached for Phase II. The Phase I may be done in procedure room or may call to secure a Phase I area. * If naloxone or flumazenil are used for reversal, hold in Phase I for continued monitoring from when last reversal dose was given for a minimum of 60 minutes or longer pending the nurse and/or physician discretion of patient condition before discharge to Phase II. Please call the Sedation Physician to re-evaluate and complete post-note for discharge to Phase II area. Do NOT discharge from procedure sedation or Phase 1 until post- sedation evaluation note is complete by procedure /sedation MD Sedation Discharge Instructions to be given to the patient at discharge to home.
--- NOTE | 2020-09-22 14:17 | Post Operative Brief Note ---
PG Immediate Post Op with CF Date of Surgery September 22, 2020 Pre & Post Diagnosis Operation Date: 09/21/20 15:30 <No data on this case meets the specified criteria> Operation Date: 09/22/20 10:00 <No data on this case meets the specified criteria> I identified the patient and participated in the time-out.: Yes Procedure Operation Date: 09/21/20 15:30 Actual Procedures p Angio Extremity Unilateral - Lauro Montejo MD s Ultrasound Vascular Access - Lauro Montejo MD s SC Select Cath ALEP 3rd Order - Lauro Montejo MD s Arterial ATP Cath Insertion - Lauro Montejo MD Operation Date: 09/22/20 10:00 Actual Procedures p Cineradiography w/Routine Exam - Lauro Montejo MD Surgeon Jordy Montejo MD Stitcher Around cinda salmeron Estimated Blood Loss 30 Findings Consistent with Post-Op Diagnosis Occluded SFA to popliteal. GORAN slow filled via collaterals. Stent to proximal SFA Stent to popliteal Mechanical thrombectomy SFA Angioplasty to GORAN, peroneal, JAIL KEEPER Manual closure Anesthesia Type RN Sedation Complications none
[2020-09-22] MEDS ORDERED: EPTIFIBATIDE BOLUS/DRIP IV STA (14:22)
[2020-09-22] MEDS ORDERED: SODIUM CHLORIDE 0.9% 1000ML 1,000 ML IV SCH (14:30)
[2020-09-22] MEDS ORDERED: EPTIFIBATIDE 75 MG/100 ML VIAL IV SCH ×3 (14:30→22:30)
[2020-09-22] MEDS ORDERED: PHARMACY GLYCEMIC MGMT CONSULT PRN (15:11)
--- NOTE | 2020-09-22 15:21 | Pharmacy Report ---
Pharmacy Glycemic Short Note 2 - Date of Service September 22, 2020 - Glycemic Short BSG Results (Last 24 hours): 09/21/20 09/21/20 09/22/20 18:31 20:12 05:13 Glucose 177 H POC Glucose 116 H 123 H 09/22/20 09/22/20 07:33 14:51 Glucose POC Glucose 168 H 263 H OUTPATIENT ANTIDIABETIC REGIMEN: * Glipizide 5mg PO Q AM * Metformin 850mg PO TID * Sitagliptin 100mg PO daily * A1c = 9.2% 09/22/20 ASSESSMENT: * Poorly controlled type 2 diabetic admitted for ischemic RLE in the setting of PAD * Will initiate weight based insulin doses, using "moderate" stress level. 1st dose of basal insulin to be given after today's procedure. PLAN FOR INPATIENT GLYCEMIC CONTROL: * Hold outpatient oral diabetes medications * Basal insulin * Lantus 10 units SQ BID , 1st dose STAT * Bolus insulin * NovoLog per scale ACHS or Q6hrs while NPO * Goal Range: Low 110 mg/dL - High 140 mg/dL * Correction Factor: 30 mg/dL/unit * Nutritional / Prandial insulin per carb ratio of 1 unit per 10 grams CHO consumed PLAN FOR DISCHARGE: * to be determined
--- NOTE | 2020-09-22 15:56 | Hospitalist Progress Note ---
Date of Service September 22, 2020 Assessment & Plan (1) Arterial occlusion, lower extremity: Plan: Status post endovascular intervention of right SFA/popliteal arteries on 09/06/2020 He was admitted today with acute right leg pain and occlusion of the SFA to popliteal Status post intra-arterial thrombolysis with successful placement of TPA catheter on 09/21/2020 Status post second procedure by Dr. Montejo today 09/22/2020 Receiving intra-arterial TPA, intravenous heparin and also antiplatelet therapy Appreciate vascular surgery input and recommendation Appreciate safety grooving machine operator input and recommendation Status post: The right side 09/22/2020 Stent to proximal SFA Stent to popliteal Mechanical thrombectomy SFA Angioplasty 2 GORAN, peroneal and DIE CASTING MACHINE OPERATOR (2) Acute leg pain: Plan: Secondary to right endovascular occlusion involving SFA/popliteal arteries (3) PAD (peripheral artery disease): Plan: This is a 65-year-old male with PMH of PAD with recent endovascular intervention with right SFA/popliteal arteries on 09/06/[address] Montejo, type 2 diabetes, dyslipidemia, hypertension, s/p pacemaker placement and other medical problems listed below who presents after vascular follow-up with right lower extremity pain and is s/p intra-arterial thrombolysis by Dr. Montejo. Presented to vascular follow up appointment today with evidence of acute limb ischemia Right lower extremity arterial duplex reveals occlusion of SFA/popliteal arteries with severely diminished flow in the TPT/GORAN S/p intra-arterial thrombolysis by Dr. Montejo with successful placement of TPA infusion catheter In ICU for further monitoring Mgmt per safety grooving machine operator, interventional cardiology Remains stable in ICU (4) Diabetes mellitus, type II: Plan: A1c 10 in 2020 -hemoglobin A1c is elevated at 9.2 Hold home agents SSI while in-patient Glycemic consult placed BSG HS (5) HTN (hypertension): Plan: Continue home losartan, Toprol (6) CAD (coronary artery disease): Plan: Has atherosclerotic cardiovascular disease Stable H/o CABG in 2007 Continue statin Code status: FULL PCP: Emil Dispo: Admitted to ICU Discussed with the in detail Admission and Anticipated Discharge Date Admission Date: September 21, 2020 Subjective 09/22/2020 The patient was seen and examined in ICU He is status post endovascular procedure today as mentioned Remains very drowsy following the procedure Review of Systems Review of Systems: Unobtainable due to cognitive status Physical Exam Physical Exam: Lying in bed without any acute distress Constitutional: + ill appearing and + obese; no acute distress Eyes: PERRL, conjunctivae normal, anicteric sclerae ENMT: external ear and nose normal, oropharynx normal Neck: trachea midline, no thyromegaly Respiratory: no respiratory distress Auscultation: lungs clear to auscultation bilaterally Cardiovascular: Rate/Rhythm: regular rate and regular rhythm; not tachycardic Heart Sounds: normal S1 and normal S2; no murmur Gastrointestinal (Abdomen): normal bowel sounds, soft, nontender, no hepatosplenomegaly Musculoskeletal: No acute arthritis in any joint Neurologic: Remains drowsy secondary to medication use for the procedure Results & Data Results & Data ([facility]) Vital Signs (Past 12 Hours) Vital Signs Temp Pulse Pulse Resp BP BP Pulse Ox 09/22/20 14:58 93 H 117/73 97 09/22/20 14:43 94 H 112/86 97 09/22/20 14:30 97 H 98 09/22/20 14:27 96 H 98 09/22/20 14:15 94 H 18 103/67 98 09/22/20 14:00 94 H 18 103/85 98 09/22/20 13:50 94 H 18 90/65 L 96 09/22/20 07:00 36.6 C 75 16 151/94 H 95 09/22/20 06:00 72 14 174/97 H 97 09/22/20 05:00 68 16 214/98 H 98 09/22/20 04:00 37.1 C 74 16 150/98 H 97 Laboratory Results Short CBC 09/22/20 09/22/20 Range/Units 00:09 05:13 WBC 9.93 10.26 (4.8-10.8) K/uL Hgb 10.5 L 11.3 L (14.0-18.0) g/dL Hct 31.4 L 34.5 L (42-52) % Plt Count 253 275 (130-400) K/uL BMP 09/22/20 05:13 Sodium 134 L Potassium 3.8 Chloride 102 Carbon Dioxide 28 BUN 12 Creatinine 0.69 D Glucose 177 H Calcium 8.7 Medications Administered Current Inpatient Medications Acetaminophen (Acetaminophen 325 Mg Tab) 650 mg PO Q4H PRN PRN Reason: Pain or Fever Stop: 10/21/20 18:10 Atorvastatin Calcium (Atorvastatin 40 Mg Tab) 80 mg PO DAILY [facility] Stop: 10/22/20 08:59 Last Admin: 09/22/20 13:50 Dose: Not Given Documented by: Clopidogrel Bisulfate (Clopidogrel Bisulfate 75 Mg Tab) 75 mg PO QAM [facility] Stop: 10/23/20 08:59 Dextrose (Dextrose 50% 50 Ml Syringe) 25 - 50 ml IV UD PRN; Protocol PRN Reason: Hypoglycemia Protocol Stop: 10/21/20 18:10 Fentanyl Citrate (Fentanyl Citrate 100 Mcg/2 Ml Vial) 50 mcg IV Q2H PRN PRN Reason: Pain Stop: 10/05/20 22:12 Last Admin: 09/22/20 06:03 Dose: 50 mcg Documented by: Glucagon (Glucagon For Inj 1 Mg Vial) 1 mg SQ UD PRN; Protocol PRN Reason: Hypoglycemia Protocol Stop: 10/21/20 18:10 Glucose (Glucose 10 Tabs/Tube) 4 - 8 tabs PO UD PRN; Protocol PRN Reason: Hypoglycemia Protocol Stop: 10/21/20 18:10 Glucose (Glucose 40% Gel 15 Gm Tube) 15 - 30 gm PO UD PRN; Protocol PRN Reason: Hypoglycemia Protocol Stop: 10/21/20 18:10 Heparin Sodium/Dextrose (Heparin Sodium/Dextrose) 25,000 units in 500 mls @ 10 mls/hr IV .Q24H [facility]HAEL Stop: 10/21/20 14:14 Last Admin: 09/22/20 14:42 Dose: Not Given Documented by: Sodium Chloride (Nss 1000ml) 1,000 mls @ 100 mls/hr IV .Q10H MICHAEL Stop: 09/23/20 00:29 Last Admin: 09/22/20 14:43 Dose: 100 mls/hr Documented by: Eptifibatide (Integrilin) 75 mg in 100 mls @ 12.464 mls/hr IV .Q8H2M [facility]; Protocol Stop: 09/22/20 21:00 Last Admin: 09/22/20 15:21 Dose: 2 mcg/kg/min, 12.5 mls/hr Documented by: Insulin Aspart (Insulin Aspart 100 Units/Ml 3 Ml Pen) 0 units SC ACHS MICHAEL Stop: 09/22/20 17:30 Last Admin: 09/22/20 14:58 Dose: 4 units Documented by: Insulin Aspart (Insulin Aspart 100 Units/Ml 3 Ml Pen) 0 units SC ACHS [facility] Stop: 10/22/20 20:59 Insulin Aspart (Insulin Aspart 100 Units/Ml 3 Ml Pen) 0 units SC TODAY@0200 ONE Stop: 09/23/20 02:01 Insulin Glargine (Insulin Glargine Solostar 100 Units/Ml 3 Ml Pen) 10 units SC BID [facility] Stop: 10/22/20 20:59 Insulin Glargine (Insulin Glargine Solostar 100 Units/Ml 3 Ml Pen) 10 units SC TODAY@1630 ONE Stop: 09/22/20 16:31 Losartan Potassium (Losartan Potassium 25 Mg Tab) 12.5 mg PO QAM [facility] Stop: 10/22/20 08:59 Last Admin: 09/22/20 13:50 Dose: Not Given Documented by: Metoprolol Succinate (Metoprolol Succ 50mg Ext Rel Tab) 75 mg [facility] [place] Stop: 10/22/20 08:59 Last Admin: 09/22/20 13:50 Dose: Not Given Documented by: Miscellaneous (Carbohydrates For Hypoglycemia ) 15 - 30 gm PO UD PRN PRN Reason: Hypoglycemia Protocol Stop: 10/21/20 18:10 Miscellaneous (Eptifibatide: Stop Order) 1 ea N/A ONE ONE Stop: 09/22/20 21:01 Miscellaneous Information (Pharmacy Glycemic Mgmt Consult) 1 ea N/A UD PRN PRN Reason: Consult Stop: 10/22/20 15:10 Ondansetron HCl (Ondansetron Inj 2 Mg/Ml 2 Ml Vial) 4 mg IV Q6H PRN PRN Reason: Nausea And Vomiting Stop: 10/21/20 17:42 Polyethylene Glycol (Polyethylene (Miralax) 17 Gm Pack) 17 gm PO DAILY PRN PRN Reason: Constipation Stop: 10/21/20 18:10 (1) Acute leg pain Laterality: right Qualified Code(s): M79.604 - Pain in right leg
[2020-09-22 16:25] LABS: Basophils # (auto) 0.01 K/uL (0-0.2); Basophils % (auto) 0.1 %; Eosinophils # (auto) 0.02 K/uL (0-0.5); Eosinophils % (auto) 0.1 %; Hematocrit (blood only) 33.1 % (42-52); Hemoglobin 10.8 g/dL (14.0-18.0); Immature Granulocytes # (auto) 0.09 K/uL (0.00-0.02); Immature Granulocytes % (auto) 0.5 %; Lymphocytes # (auto) 0.83 K/uL (1.2-3.4); Lymphocytes % (auto) 4.5 %; Mean Corpuscular Hemoglobin 27.8 pg (25-34); Mean Corpuscular Hgb Conc 32.6 g/dL (32-36); Mean Corpuscular Volume 85.1 fL (80-100); Mean Platelet Volume 9.2 fL (7.4-10.4); Monocytes # (auto) 2.19 K/uL (0.11-0.59); Neutrophils # (auto) 15.17 K/uL (1.4-6.5); Neutrophils % (auto) 82.8 %; Platelet Count 196 K/uL (130-400); RDW Coefficient of Variation 13.5 % (11.5-14.5); RDW Standard Deviation 41.9 fL (36.4-46.3); Red Blood Count 3.89 M/uL (4.7-6.1); White Blood Count 18.31 K/uL (4.8-10.8)
[2020-09-22] MEDS ORDERED: INSULIN GLARGINE SOLOSTAR 100 UNITS/ML 3 ML PEN SC ONE (16:30)
[2020-09-22 16:36] LABS: Fibrinogen 357 mg/dl (184-400); Partial Thromboplastin Time 26.5 Seconds (21.0-31.0)
[2020-09-22] MEDS: ACETAMINOPHEN 325 MG TAB PO PRN (20:59)
[2020-09-22] MEDS ORDERED: INSULIN GLARGINE SOLOSTAR 100 UNITS/ML 3 ML PEN SC SCH (21:00)
[2020-09-22 21:01] LABS: Basophils # (auto) 0.02 K/uL (0-0.2); Basophils % (auto) 0.2 %; Eosinophils # (auto) 0.01 K/uL (0-0.5); Eosinophils % (auto) 0.1 %; Hematocrit (blood only) 31.2 % (42-52); Hemoglobin 10.3 g/dL (14.0-18.0); Immature Granulocytes # (auto) 0.04 K/uL (0.00-0.02); Immature Granulocytes % (auto) 0.3 %; Lymphocytes # (auto) 1.43 K/uL (1.2-3.4); Lymphocytes % (auto) 11.6 %; Mean Corpuscular Hemoglobin 28.1 pg (25-34); Mean Platelet Volume 9.3 fL (7.4-10.4); Monocytes # (auto) 1.56 K/uL (0.11-0.59); Monocytes % (auto) 12.6 %; Neutrophils # (auto) 9.29 K/uL (1.4-6.5); Neutrophils % (auto) 75.2 %; Platelet Count 198 K/uL (130-400); RDW Coefficient of Variation 13.5 % (11.5-14.5); RDW Standard Deviation 41.7 fL (36.4-46.3); Red Blood Count 3.67 M/uL (4.7-6.1); White Blood Count 12.35 K/uL (4.8-10.8)
[2020-09-22 21:15] LABS: Partial Thromboplastin Ratio 0.9; Partial Thromboplastin Time 24.5 Seconds (21.0-31.0)
--- NOTE | 2020-09-22 22:19 | Endovascular Procedure Note ---
PG Endovascular Procedure Rpt Pre & Post Diagnosis Operation Date: 09/21/20 15:30 <No data on this case meets the specified criteria> Operation Date: 09/22/20 10:00 <No data on this case meets the specified criteria> I identified the patient and participated in the time-out.: Yes Procedure Operation Date: 09/21/20 15:30 Actual Procedures p Angio Extremity Unilateral - MD mary Hennessy Ultrasound Vascular Access - Lauro Montejo MD s SC Select Cath ALEP 3rd Order - MD mary Hennessy Arterial ATP Cath Insertion - Lauro Montejo MD Operation Date: 09/22/20 10:00 Actual Procedures p Cineradiography w/Routine Exam - MD mary Hennessy SC Select Cath ALEP 3rd Order - MD mary Hennessy Angiogram Extremity Unilateral - MD mary Hennessy Infusaport Removal - MD mary Hennessy Ultrasound Vascular Access - MD mary Hennessy IVUS Non Cors - Lauro Montejo MD p Fem Pop Stent Balloon Atherect - MD mary Hennessy Tibioperoneal Balloon Atherect - Lauro Montejo MD Surgeon Jordy Montejo MD Mine Safety Engineer cinda salmeron Estimated Blood Loss 30 Findings Consistent with Post-Op Diagnosis Thrombolytics catheter in place and popliteal artery. Right lower extremity-- -Common iliac, external iliac, internal iliac widely patent -THEATER PROJECTIONIST, profunda widely patent -SFA occluded at the ostium. GORAN reconstitutes via collaterals in the proximal segment. Partial reconstitution of peroneal via collaterals. Anesthesia Type RN Sedation Radiation Exposure (mGv) Radiation (mGy): 322 Contrast Contrast: 110 Complications none Disposition Accompanied Patient To Recovery: No Disposition: Caustic Preparer Holding Description of Procedure 6 Fr 45 cm destination sheath left in place with [place] infusion catheter prepped in sterile fashion. Catheter removed over 035 wire and new 6 Fr 45 cm destination sheath placed from left THEATER PROJECTIONIST to right THEATER PROJECTIONIST. Angiography through the sheath revealed continued occlusion of ostial SFA 0.35 wire exchanged for 0.14 command wire which was navigated into anterior tibial artery Second 0.14 command wire navigated into posterior tibial artery Proximal anterior tibial dilated with 3 mm balloon Popliteal/length of SFA stents dilated with 5.0 balloon Channel noted in SFA but minimal antegrade flow Peripheral IVUS catheter inserted into popliteal artery. Pullback revealed diffuse thrombus throughout popliteal and SFA stents with area of possible stent underexpansion in mid SFA 6 Fr sheath exchanged for 7 Fr 45 cm destination sheath Commands exchanged for thruway guidewire Jetstream atherectomy performed with 3.0/2.1 catheter from SFA in the popliteal artery (2 passes with blades down). Minimal removal of thrombus and no significant change in flow. Proximal GORAN/distal popliteal dilated with 3.5 balloon Stents postdilated with 6.0 balloon and 7.0 balloon Proximal SFA stented with 7 x 60 mm self-expanding (lifestent) extending back almost to SFA ostium. Stent postdilated with 7 mm balloon. Command wire was renavigated into GORAN and into distal SUSTAINABILITY PROJECT MANAGER GORAN predilated with 2.0 and 3.0 balloon Multiple rounds of IA vasodilators and IV Integrilin given Posterior tibial artery dilated with 2.5 balloon Simultaneous angioplasty done with 2.0 balloon and GORAN, 2.5 balloon in TPT/SUSTAINABILITY PROJECT MANAGER Post inflation reestablished flow in GORAN and TPT with apparent thrombus. Additional IV Integrilin given. GORAN dilated with 2.5 balloon SUSTAINABILITY PROJECT MANAGER dilated with 2.5 balloon Peroneal dilated with 2.5 balloon Supera 5 x 80 mm stent placed to popliteal overlapping distal aspect of prior stent Stent postdilated with 5.0 balloon Post stenting good flow through SFA/popliteal into TPT. GORAN can close. Given additional IA vasodilators GORAN predilated with 2.5 balloon. Mid to distal GORAN dilated with 2.0 balloon Wires removed. Post procedure good flow in SFA/popliteal stents. Good flow into peroneal giving off collaterals to SUSTAINABILITY PROJECT MANAGER. Sluggish flow in GORAN with limited reflow and distal GORAN/DPA. Contrast used: 110 Moderate sedation: [id number] Access closure: Attempted perclose failed - manual closure Summary: 1. Persistent right SFA through popliteal artery occlusion despite overnight catheter directed thrombolysis. Reconstitution via collaterals to proximal GORAN, peroneal. 2. Successful angioplasty/mechanical thrombectomy (jetstream) of SFA to popliteal occlusion with placement of new self-expanding stent to proximal SFA (7 x 60) and Supera stent (5 x 80) to mid popliteal. 3. Angioplasty of anterior tibial artery 4. Angioplasty of peroneal artery 5. Angioplasty of posterior tibial artery. Final result: Patent stents from SFA to popliteal with two-vessel runoff via peroneal, GORAN (distal GORAN/DPA with residual thrombus and impaired flow). Recommendations: Continue Integrilin for 6 hours. Resume Plavix. Resume Xarelto tomorrow Follow-up non-invasive vascular testing tomorrow I attest to the content of the Intraoperative Record and any orders documented therein. Any exceptions are noted below. Vascular Charges Angiography/Venography Procedure 1: Angiography/Venography charges: [id number] Initial 3rd order or selective abd, pelvic, or LE branch Lower Extremity Interventions Procedure 1: Lower Extremity Intervention charges: [id number] Stent plcmt + atherectomy, femoral, popliteal artery, unilateral Procedure 2: Lower Extremity Intervention charges: [id number] Angioplasty, tibial, peroneal artery, unilateral, initial vessel Procedure 3: Lower Extremity Intervention charges: [id number] Angioplasty, tibial, peroneal artery, UL each add'l vessel Procedure 4: Lower Extremity Intervention charges: [id number] Angioplasty, tibial, peroneal artery, UL each add'l vessel Additional Services Procedure 2: Additional Services Charges: 57700 Moderate sedation initial 15 min Procedure 3: Additional Services Charges: 06971 Moderate sedation, each additional 15 min Procedure 4: Additional Services Charges: 45102 Intravascular ultrasound; initial noncoronary vessel
--- NOTE | 2020-09-22 23:02 | Vascular Medicine Consultation ---
Date of Consultation September 22, 2020 Assessment & Plan (1) PAD (peripheral artery disease): 2. RT heel ulceration-- WIfI 2 3 0 (stage 4) 3. Type II diabetes complicated by peripheral neuropathy 4. 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 Hypertension, Dyslipidemia Patient to be angiography today additional endovascular intervention. Post procedure plan to resume clopidogrel. Plan on full dose Xarelto on discharge with having acute thrombus burden. Appreciate hospital medicine ICU team care. History of Present Illness History of Present Illness Mr. Tellez is a 65-year-old man with PAD/critical limb ischemia and nonhealing wounds. He is post repeat endovascular invention to his right lower extremity on 09/06/2020 with drug-eluting balloons to SFA occlusion and additional stent to Proximal SFA. He was seen in the office yesterday and noted on repeat vascular testing to have reoccluded SFA/popliteal with undetectable toe pressures and BRITTANY 0.21. Patient was sent from office to ER, started on heparin and taken back to endovascular for placement of thrombolysis catheter to popliteal artery. Patient did well overnight. Initially with worsened pain upon arrival to ICU but symptoms improved overnight. No bleeding issues. Plan to take patient back for repeat angiography and additional endovascular intervention today. Other past medical history remarkable fo rpremature CAD with prior inferior KS, later 2vCABG in 12/2005 (MONET-LAD, SVG-Ramus), Preserved LV function with inferior WMA, Out of hospital arrest 06/2010 with patent grafts now post ICD, prior lacunar infarcts, hypertension, hyperlipidemia and type II diabetes. Allergies Allergy/AdvReac Type Severity Reaction Status Date / Time penicillin G Allergy Intermediate Rash Verified 09/21/20 14:53 Home Medications Medication Instructions Recorded Confirmed Type losartan 25 mg tablet 12.5 mg PO QAM tab 11/18/18 09/21/20 History metformin 850 mg tablet 850 mg PO TID 11/18/18 09/21/20 History metoprolol succinate 50 mg capsule 75 mg PO QAM 11/18/18 09/21/20 History sprinkle, ext. release 24 hr nitroglycerin 0.4 mg sublingual 0.4 mg SL Q5M PRN 11/18/18 09/21/20 History tablet ascorbic acid (vitamin C) 500 mg 500 mg PO QAM 04/20/20 09/21/20 History tablet (Vitamin C) cholecalciferol (vitamin D3) 25 25 mcg PO QAM 04/20/20 09/21/20 History mcg (1,000 unit) tablet (Vitamin D3) glipizide 5 mg tablet 5 mg PO QAM 04/20/20 09/21/20 History rivaroxaban 2.5 mg tablet (Xarelto) 2.5 mg PO BID #60 tab 09/06/20 09/21/20 Rx tramadol 50 mg tablet 50 mg PO BID PRN #7 tab 09/07/20 09/21/20 Rx clopidogrel 75 mg tablet 75 mg PO QAM #90 tab 09/15/20 09/21/20 Rx atorvastatin 80 mg tablet 80 mg PO DAILY 09/21/20 09/21/20 History doxycycline hyclate 100 mg tablet 100 mg PO 3XWK 09/21/20 09/21/20 History multivitamin 1 tab PO QAM 09/21/20 09/21/20 History sitagliptin 100 mg tablet (Januvia) 100 mg PO DAILY 09/21/20 09/21/20 History Patient History Medical History Anemia CAD (coronary artery disease) 2007 CABG x 2, MONET-LAD, SVG-ramus. Complicated by post-op pericarditis. Diabetes mellitus, type II Diabetic ulcer of right heel currently under care of wound clinic. History of cardiac arrest 06/2010, rec'd multiple AED shocks with ROSC. Cath showed patent grafts and preserved LV function EF 55-59%. ICD placed 07/10/10. History of pericarditis HTN (hypertension) Hyperlipemia, mixed ICD (implantable cardioverter-defibrillator) in place recently changed 04/21/[address] Morales at [facility] Myocardial infarction On anticoagulant therapy plavix daily PAD (peripheral artery disease) Rosacea Surgical History H/O hand surgery History of angioplasty Dr. Montejo 04/23/20 @ [facility] d/t PAD--per pt reason for plavix History of ankle surgery ORIF Left ankle History of colonoscopy History of tonsillectomy Hx of CABG x2 vessels, ~2009. Brittany Knight. Follows with Dr. Vega. S/P placement of cardiac pacemaker Family History Other Diabetes No family history of adverse response to anesthesia Social History Smoking Status: Never smoker Second Hand Exposure: No; Hx Alcohol Use: No Hx Substance Use: No Preferred Language: Togolese Communication Ability: Effective Visual Impairment: Partially Limited Hearing Ability: Normal Fax Machine Repairer Required: No Beliefs That Will Affect Care: None marital status: Current Living Situation: Spouse current occupational status: employed current occupation: [employer] Other Information That Helps Us Care for You: No Feels Safe at Home: Yes Safety Concerns: Feels Safe At This Time Assistive Devices: None Review of Systems Review of Systems: 10 point review of systems was completed and was otherwise negative unless stated in HPI Physical Exam Physical Exam: General: Comfortable, no acute distress Eyes: Sclerae anicteric, extraocular movements intact Lungs: Clear to auscultation bilaterally Cardiac: Regular rate and rhythm, no murmurs Psych: Alert orient x3, normal affect and mood Extremities/Vascular: -- 2+ radial bilaterally -- Right DP/PT nonpalpable, dopplerable DP/PT pulses on the right. 1+ DP left. --Deep ulcer right medial heel --Ulceration and discoloration of right 5th digit --Purple discoloration right great medial toe Results & Data ([facility]) Vital Signs (Past 12 Hours) Vital Signs Temp Pulse Pulse Resp BP BP Pulse Ox 09/22/20 22:07 81 16 105/60 98 09/22/20 21:58 82 16 106/59 L 96 09/22/20 20:58 91 H 16 107/67 97 09/22/20 20:00 99.1 F 09/22/20 19:58 88 16 108/70 93 09/22/20 18:43 94 H 16 134/69 97 09/22/20 17:58 96 H 106/65 96 09/22/20 17:43 96 H 97/57 L 96 09/22/20 17:28 94 H 100/64 96 09/22/20 17:14 94 H 118/68 96 09/22/20 16:58 100 H 94/61 L 99 09/22/20 16:43 108 H 117/88 100 09/22/20 16:28 97 H 118/84 99 09/22/20 16:13 94 H 107/83 96 09/22/20 15:58 91 H 122/91 97 09/22/20 15:43 93 H 108/75 97 09/22/20 15:28 92 H 110/72 97 09/22/20 15:13 92 H 117/71 96 09/22/20 14:58 93 H 117/73 97 09/22/20 14:43 94 H 112/86 97 09/22/20 14:30 97 H 98 09/22/20 14:27 96 H 98 09/22/20 14:15 94 H 18 103/67 98 09/22/20 14:00 94 H 18 103/85 98 09/22/20 13:50 94 H 18 90/65 L 96 PG Care Time/CCT Total # of Minutes Spent Total Time Spent with Patient: Total time spent is greater than 50% in coordination of care (as documented) at patient's floor/unit and/or counseling patient: Coding Level of Care Code 80465 Inpt Consult Level 4 Diagnoses PAD (peripheral artery disease) I73.9
[2020-09-23] MEDS ORDERED: INSULIN ASPART 100 UNITS/ML 3 ML PEN SC ONE (02:00)
[2020-09-23] MEDS ORDERED: HYDROmorphone INJ 0.5 MG/0.5 ML SYR IV ONE (04:23)
[2020-09-23] MEDS ORDERED: HYDROmorphone INJ 0.5 MG/0.5 ML SYR ONE (04:43)
[2020-09-23 05:23] LABS: Basophils # (auto) 0.01 K/uL (0-0.2); Basophils % (auto) 0.1 %; Eosinophils % (auto) 0.9 %; Hemoglobin 9.8 g/dL (14.0-18.0); Immature Granulocytes # (auto) 0.05 K/uL (0.00-0.02); Immature Granulocytes % (auto) 0.4 %; Lymphocytes # (auto) 1.52 K/uL (1.2-3.4); Lymphocytes % (auto) 13.3 %; Mean Corpuscular Hemoglobin 27.9 pg (25-34); Mean Corpuscular Hgb Conc 32.7 g/dL (32-36); Mean Corpuscular Volume 85.5 fL (80-100); Mean Platelet Volume 8.9 fL (7.4-10.4); Monocytes # (auto) 1.36 K/uL (0.11-0.59); Monocytes % (auto) 11.9 %; Neutrophils % (auto) 73.4 %; Platelet Count 179 K/uL (130-400); RDW Coefficient of Variation 13.8 % (11.5-14.5); RDW Standard Deviation 42.7 fL (36.4-46.3); Red Blood Count 3.51 M/uL (4.7-6.1); White Blood Count 11.44 K/uL (4.8-10.8)
[2020-09-23 05:48] LABS: BUN Creatinine Ratio 15.4 (10-20); Calcium 8.2 mg/dl (8.5-10.1); Creatinine Clr Calc Pharmacy 97.8 ml/min; Est GFR (Non-African American) 96.7 ml/min; Magnesium 1.9 mg/dl (1.8-2.4); Potassium 4.2 mmol/L (3.5-5.1)
[2020-09-23 05:50] LABS: Phosphorus 2.8 mg/dl (2.5-4.9)
[2020-09-23] MEDS: METOPROLOL SUCC 50MG EXT REL TAB PO SCH (08:08)
[2020-09-23] MEDS: CLOPIDOGREL BISULFATE 75 MG TAB PO SCH (08:08)
[2020-09-23] MEDS: ATORVASTATIN 40 MG TAB PO SCH (08:08)
[2020-09-23] MEDS: LOSARTAN POTASSIUM 25 MG TAB PO SCH (08:08)
[2020-09-23] MEDS: INSULIN ASPART 100 UNITS/ML 3 ML PEN SC SCH ×5 (08:09→20:34)
--- NOTE | 2020-09-23 09:07 | Critical Care Progress Note ---
Date of Service September 23, 2020 Assessment & Plan (1) Admitted to intensive care unit: Plan: NEURO - * CAM ICU: NEGATIVE * Pain: * Patient endorses pain to the RIGHT lower extremity. * Will provide as needed narcotics given degree of discomfort. CARDIAC/VASCULAR - * Acute occlusion of RLE SFA Stent: * s/p endovascular procedure. * Monitor distal pulses. * Pain control. * Hypertension, hyperlipidemia, coronary disease. * Continue home Rx as tolerated. RESPIRATORY - * No reported history of pulmonary disease. * Saturating well on room air. GI/NUTRITION - * Carb consistent type II diabetic diet. RENAL/LYTES - * No significant electrolyte derangements. - * Townsend in place - Strict I&Os. ENDO - * DMII * BSGs per unit protocol. ISS --> gtt per unit policy. HEME - * Stable H&H * Anticoagulation per cardiology ID - * No concerns for infectious sources at this time. LINES/IV ACCESS - * PIVs x2 DVT PROPHYLAXIS - * SCDs Stable for downgrade out of ICU critical care will sign off (2) Arterial occlusion, lower extremity: (3) Acute leg pain: (4) PAD (peripheral artery disease): (5) Diabetic ulcer of right heel: (6) HTN (hypertension): (7) Diabetes mellitus, type II: (8) CAD (coronary artery disease): Admission and Anticipated Discharge Date Admission Date: September 21, 2020 Supervising Physician Co-Signing Physician Notes Patient was discussed in multidisciplinary rounds Subjective No overnight events, minimal right calf pain was given pain medication overnight and that adequately relieved pain. Tolerated morning diet. Physical Exam Physical Exam: General: Alert. nontoxic. Skin: Warm, dry, Head: Atraumatic Ears, nose, mouth and throat: airway patent Cardiovascular: Dopplerable pulses bilaterally Respiratory: no respiratory distress Gastrointestinal: Non distended Musculoskeletal: No deformity Results & Data Results & Data ([facility]) Vital Signs (Past 12 Hours) Vital Signs Temp Pulse Resp BP Pulse Ox 09/23/20 05:58 82 18 123/74 98 09/23/20 04:58 78 14 116/73 92 09/23/20 04:00 37.1 C 09/23/20 03:58 81 16 174/83 H 97 09/23/20 02:58 80 14 149/71 H 98 09/23/20 01:58 77 16 148/70 H 97 09/23/20 00:58 78 14 129/95 95 09/23/20 00:00 37.0 C 09/22/20 23:58 82 16 105/72 92 09/22/20 23:00 81 09/22/20 22:07 81 16 105/60 98 09/22/20 21:58 82 16 106/59 L 96 Laboratory Results 09/23/20 09/23/20 09/23/20 Range/Units 07:38 05:14 05:14 WBC 11.44 H (4.8-10.8) K/uL RBC 3.51 L (4.7-6.1) M/uL Hgb 9.8 L (14.0-18.0) g/dL Hct 30.0 L (42-52) % MCV 85.5 (80-100) fL MCH 27.9 (25-34) pg MCHC 32.7 (32-36) g/dL RDW Std Deviation 42.7 (36.4-46.3) fL RDW Coeff of Ella 13.8 (11.5-14.5) % Plt Count 179 (130-400) K/uL MPV 8.9 (7.4-10.4) fL Immature Gran % (Auto) 0.4 % Neut % (Auto) 73.4 % Lymph % (Auto) 13.3 % [place] % (Auto) 11.9 % Eos % (Auto) 0.9 % Baso % (Auto) 0.1 % Neut # (Auto) 8.40 H (1.4-6.5) K/uL Lymph # (Auto) 1.52 (1.2-3.4) K/uL [place] # (Auto) 1.36 H (0.11-0.59) K/uL Eos # (Auto) 0.10 (0-0.5) K/uL Baso # (Auto) 0.01 (0-0.2) K/uL Immature Gran # (Auto) 0.05 H (0.00-0.02) K/uL APTT (21.0-31.0) Seconds PTT Ratio Activ Coag Time Kaolin (94-140) SECONDS Fibrinogen (184-400) mg/dl Sodium 136 (136-145) mmol/L Potassium 4.2 (3.5-5.1) mmol/L Chloride 106 (98-107) mmol/L Carbon Dioxide 27 (21-32) mmol/L Anion Gap 3.0 (3-11) BUN 11 (7-18) mg/dl Creatinine 0.73 (0.6-1.4) mg/dl Est Cr Clr Drug Dosing 97.8 ml/min Est GFR ( Amer) 112.0 ml/min Est GFR (Non-Af Amer) 96.7 ml/min BUN/Creatinine Ratio 15.4 (10-20) Glucose 182 H (70-99) mg/dl POC Glucose 191 H (70-99) mg/dl Calcium 8.2 L (8.5-10.1) mg/dl Phosphorus 2.8 (2.5-4.9) mg/dl Magnesium 1.9 (1.8-2.4) mg/dl 09/23/20 09/22/20 09/22/20 Range/Units 02:02 20:49 20:43 WBC (4.8-10.8) K/uL RBC (4.7-6.1) M/uL Hgb (14.0-18.0) g/dL Hct (42-52) % MCV (80-100) fL MCH (25-34) pg MCHC (32-36) g/dL RDW Std Deviation (36.4-46.3) fL RDW Coeff of Ella (11.5-14.5) % Plt Count (130-400) K/uL MPV (7.4-10.4) fL Immature Gran % (Auto) % Neut % (Auto) % Lymph % (Auto) % [place] % (Auto) % Eos % (Auto) % Baso % (Auto) % Neut # (Auto) (1.4-6.5) K/uL Lymph # (Auto) (1.2-3.4) K/uL [place] # (Auto) (0.11-0.59) K/uL Eos # (Auto) (0-0.5) K/uL Baso # (Auto) (0-0.2) K/uL Immature Gran # (Auto) (0.00-0.02) K/uL APTT 24.5 (21.0-31.0) Seconds PTT Ratio 0.9 Activ Coag Time Kaolin (94-140) SECONDS Fibrinogen (184-400) mg/dl Sodium (136-145) mmol/L Potassium (3.5-5.1) mmol/L Chloride (98-107) mmol/L Carbon Dioxide (21-32) mmol/L Anion Gap (3-11) BUN (7-18) mg/dl Creatinine (0.6-1.4) mg/dl Est Cr Clr Drug Dosing ml/min Est GFR ( Amer) ml/min Est GFR (Non-Af Amer) ml/min BUN/Creatinine Ratio (10-20) Glucose (70-99) mg/dl POC Glucose 154 H 224 H (70-99) mg/dl Calcium (8.5-10.1) mg/dl Phosphorus (2.5-4.9) mg/dl Magnesium (1.8-2.4) mg/dl 09/22/20 09/22/20 09/22/20 Range/Units 20:43 16:28 16:10 WBC 12.35 H (4.8-10.8) K/uL RBC 3.67 L (4.7-6.1) M/uL Hgb 10.3 L (14.0-18.0) g/dL Hct 31.2 L (42-52) % MCV 85.0 (80-100) fL MCH 28.1 (25-34) pg MCHC 33.0 (32-36) g/dL RDW Std Deviation 41.7 (36.4-46.3) fL RDW Coeff of Ella 13.5 (11.5-14.5) % Plt Count 198 (130-400) K/uL MPV 9.3 (7.4-10.4) fL Immature Gran % (Auto) 0.3 % Neut % (Auto) 75.2 % Lymph % (Auto) 11.6 % [place] % (Auto) 12.6 % Eos % (Auto) 0.1 % Baso % (Auto) 0.2 % Neut # (Auto) 9.29 H (1.4-6.5) K/uL Lymph # (Auto) 1.43 (1.2-3.4) K/uL [place] # (Auto) 1.56 H (0.11-0.59) K/uL Eos # (Auto) 0.01 (0-0.5) K/uL Baso # (Auto) 0.02 (0-0.2) K/uL Immature Gran # (Auto) 0.04 H (0.00-0.02) K/uL APTT 26.5 (21.0-31.0) Seconds PTT Ratio 1.0 Activ Coag Time Kaolin (94-140) SECONDS Fibrinogen 357 (184-400) mg/dl Sodium (136-145) mmol/L Potassium (3.5-5.1) mmol/L Chloride (98-107) mmol/L Carbon Dioxide (21-32) mmol/L Anion Gap (3-11) BUN (7-18) mg/dl Creatinine (0.6-1.4) mg/dl Est Cr Clr Drug Dosing ml/min Est GFR ( Amer) ml/min Est GFR (Non-Af Amer) ml/min BUN/Creatinine Ratio (10-20) Glucose (70-99) mg/dl POC Glucose 245 H (70-99) mg/dl Calcium (8.5-10.1) mg/dl Phosphorus (2.5-4.9) mg/dl Magnesium (1.8-2.4) mg/dl 09/22/20 09/22/20 09/22/20 Range/Units 16:10 14:51 10:42 WBC 18.31 H (4.8-10.8) K/uL RBC 3.89 L (4.7-6.1) M/uL Hgb 10.8 L (14.0-18.0) g/dL Hct 33.1 L (42-52) % MCV 85.1 (80-100) fL MCH 27.8 (25-34) pg MCHC 32.6 (32-36) g/dL RDW Std Deviation 41.9 (36.4-46.3) fL RDW Coeff of Ella 13.5 (11.5-14.5) % Plt Count 196 (130-400) K/uL MPV 9.2 (7.4-10.4) fL Immature Gran % (Auto) 0.5 % Neut % (Auto) 82.8 % Lymph % (Auto) 4.5 % [place] % (Auto) 12.0 % Eos % (Auto) 0.1 % Baso % (Auto) 0.1 % Neut # (Auto) 15.17 H (1.4-6.5) K/uL Lymph # (Auto) 0.83 L (1.2-3.4) K/uL [place] # (Auto) 2.19 H (0.11-0.59) K/uL Eos # (Auto) 0.02 (0-0.5) K/uL Baso # (Auto) 0.01 (0-0.2) K/uL Immature Gran # (Auto) 0.09 H (0.00-0.02) K/uL APTT (21.0-31.0) Seconds PTT Ratio Activ Coag Time Kaolin 241 H (94-140) SECONDS Fibrinogen (184-400) mg/dl Sodium (136-145) mmol/L Potassium (3.5-5.1) mmol/L Chloride (98-107) mmol/L Carbon Dioxide (21-32) mmol/L Anion Gap (3-11) BUN (7-18) mg/dl Creatinine (0.6-1.4) mg/dl Est Cr Clr Drug Dosing ml/min Est GFR ( Amer) ml/min Est GFR (Non-Af Amer) ml/min BUN/Creatinine Ratio (10-20) Glucose (70-99) mg/dl POC Glucose 263 H (70-99) mg/dl Calcium (8.5-10.1) mg/dl Phosphorus (2.5-4.9) mg/dl Magnesium (1.8-2.4) mg/dl 09/22/20 Range/Units 09:56 WBC (4.8-10.8) K/uL RBC (4.7-6.1) M/uL Hgb (14.0-18.0) g/dL Hct (42-52) % MCV (80-100) fL MCH (25-34) pg MCHC (32-36) g/dL RDW Std Deviation (36.4-46.3) fL RDW Coeff of Ella (11.5-14.5) % Plt Count (130-400) K/uL MPV (7.4-10.4) fL Immature Gran % (Auto) % Neut % (Auto) % Lymph % (Auto) % [place] % (Auto) % Eos % (Auto) % Baso % (Auto) % Neut # (Auto) (1.4-6.5) K/uL Lymph # (Auto) (1.2-3.4) K/uL [place] # (Auto) (0.11-0.59) K/uL Eos # (Auto) (0-0.5) K/uL Baso # (Auto) (0-0.2) K/uL Immature Gran # (Auto) (0.00-0.02) K/uL APTT (21.0-31.0) Seconds PTT Ratio Activ Coag Time Kaolin 76 L (94-140) SECONDS Fibrinogen (184-400) mg/dl Sodium (136-145) mmol/L Potassium (3.5-5.1) mmol/L Chloride (98-107) mmol/L Carbon Dioxide (21-32) mmol/L Anion Gap (3-11) BUN (7-18) mg/dl Creatinine (0.6-1.4) mg/dl Est Cr Clr Drug Dosing ml/min Est GFR ( Amer) ml/min Est GFR (Non-Af Amer) ml/min BUN/Creatinine Ratio (10-20) Glucose (70-99) mg/dl POC Glucose (70-99) mg/dl Calcium (8.5-10.1) mg/dl Phosphorus (2.5-4.9) mg/dl Magnesium (1.8-2.4) mg/dl Coding Level of Care Code 96354 Subseq Hosp Care Lvl 3 Diagnoses Admitted to intensive care unit Z78.9 Arterial occlusion, lower extremity I70.209 Acute leg pain M79.604 Laterality: right PAD (peripheral artery disease) I73.9 Diabetic ulcer of right heel E11.621; L97.419 HTN (hypertension) I10 Diabetes mellitus, type II E11.9 CAD (coronary artery disease) I25.10 (1) Acute leg pain Laterality: right Qualified Code(s): M79.604 - Pain in right leg
[2020-09-23] MEDS ORDERED: HYDROmorphone INJ 0.5 MG/0.5 ML SYR IV STA (09:19)
[2020-09-23] MEDS: traMADol HCL 50 MG TABLET PO PRN ×2 (09:30→14:56)
[2020-09-23] MEDS: INSULIN GLARGINE SOLOSTAR 100 UNITS/ML 3 ML PEN SC SCH ×2 (09:31→20:36)
--- NOTE | 2020-09-23 11:06 | Ultrasound Report ---
US ankle/brachial index comp CLINICAL HISTORY: recent endovascular intervention. Lower extremity pain. WITH TOE PRESSURE COMPARISON STUDY: None. FINDINGS: The right ankle-brachial index measured with the dorsalis pedis artery was 0.38 in the post erior tibial artery was 0.46. The left ankle-brachial index measured with the dorsalis pedis artery w as 0.59 in the posterior tibial artery was 0.67. The right toe brachial index was 0.01 and the left t oe brachial index was 0.49. IMPRESSION: Abnormally low bilateral ankle brachial and toe brachial indices as described above. ACT 112: Negative or not required by law. Electronically signed by: Juan Jose Padilla M.D. 09/23/2020 11:04 AM
--- NOTE | 2020-09-23 12:40 | Pharmacy Report ---
Pharmacy Glycemic Short Note 2 - Date of Service September 23, 2020 - Glycemic Short BSG Results (Last 24 hours): 09/22/20 09/22/20 09/22/20 14:51 16:28 20:49 Glucose POC Glucose 263 H 245 H 224 H 09/23/20 09/23/20 09/23/20 02:02 05:14 07:38 Glucose 182 H POC Glucose 154 H 191 H 09/23/20 11:33 Glucose POC Glucose 226 H OUTPATIENT ANTIDIABETIC REGIMEN: * Glipizide 5mg PO Q AM * Metformin 850mg PO TID * Sitagliptin 100mg PO daily * A1c = 9.2% 09/22/20 ASSESSMENT: 09/23 * Pts BSG elevated in the 200s yesterday, trended down over night * Fasting this AM 191 mg/dL- will increase lantus 20% * Lunch BSG elevated although overall trend decreasing, will tighten parameters with dinner 09/22 * Poorly controlled type 2 diabetic admitted for ischemic RLE in the setting of PAD * Will initiate weight based insulin doses, using "moderate" stress level. 1st dose of basal insulin to be given after today's procedure. PLAN FOR INPATIENT GLYCEMIC CONTROL: * Hold outpatient oral diabetes medications * Basal insulin * Lantus 12 units SQ BID * Bolus insulin * NovoLog per scale ACHS or Q6hrs while NPO * Goal Range: Low 110 mg/dL - High 140 mg/dL * Correction Factor: 25 mg/dL/unit * Nutritional / Prandial insulin per carb ratio of 1 unit per 9 grams CHO consumed PLAN FOR DISCHARGE: * to be determined
[2020-09-23] MEDS: Heparin IV Adult Wt-Based Standard *NO* Bolus Protocol IV SCH ×3 (16:13→17:06)
[2020-09-23] MEDS: HYDROmorphone INJ 0.5 MG/0.5 ML SYR IV PRN ×2 (16:36→20:34)
--- NOTE | 2020-09-23 16:50 | Hospitalist Progress Note ---
Date of Service September 23, 2020 Assessment & Plan (1) Arterial occlusion, lower extremity: Plan: Status post endovascular intervention of right SFA/popliteal arteries on 09/06/2020 He was admitted today with acute right leg pain and occlusion of the SFA to popliteal Status post intra-arterial thrombolysis with successful placement of TPA catheter on 09/21/2020 Receiving intra-arterial TPA, intravenous heparin and also antiplatelet therapy Appreciate vascular surgery input and recommendation Status post second procedure by Dr. Montejo on 09/22/2020 Stent to proximal SFA Stent to popliteal Mechanical thrombectomy SFA Angioplasty 2 GORAN, peroneal and ADMINISTRATIVE ASSOCIATE Plan for repeat attempted endovascular intervention to tibial arteries tomorrow. Continue heparin overnight. Continue clopidogrel and statin If unable to restore more blood flow to distal foot, will need to consider further evaluation by vascular surgery at [facility]. Large Engine Assembler on board Continue monitor in in the ICU (2) Acute leg pain: Plan: Secondary to right endovascular occlusion involving SFA/popliteal arteries Continue pain control Pain stable (3) PAD (peripheral artery disease): Plan: This is a 65-year-old male with PMH of PAD with recent endovascular intervention with right SFA/popliteal arteries on 09/06/[address] Montejo, type 2 diabetes, dyslipidemia, hypertension, s/p pacemaker placement and other medical problems listed below who presents after vascular follow-up with right lower extremity pain and is s/p intra-arterial thrombolysis by Dr. Montejo. Presented to vascular follow up appointment today with evidence of acute limb ischemia Right lower extremity arterial duplex reveals occlusion of SFA/popliteal arteries with severely diminished flow in the TPT/GORAN S/p intra-arterial thrombolysis by Dr. Montejo with successful placement of TPA infusion catheter Status post second procedure by Dr. Montejo on 09/22/2020 Mgmt per warp hauler, interventional cardiology Remains stable in ICU (4) Diabetes mellitus, type II: Plan: Most recent hemoglobin A1c is 9.2 on 09/22/20 Continue to hold home agents Pharmacy on board for Glycemic management On Lantus and insulin sliding scale (5) HTN (hypertension): Plan: Continue home losartan, Toprol BP stable (6) CAD (coronary artery disease): Plan: Has atherosclerotic cardiovascular disease Stable H/o CABG in 2007 Continue statin and plavix Code status: FULL PCP: Emil Dispo: continue monitor in the ICU Admission and Anticipated Discharge Date Admission Date: September 21, 2020 Subjective Pt was seen and examined for follow up of right lower extremity foot ulcer Lying in bed with no distress with eating dinner Pt said that he feels ok. He said that he does not have any pain in his lower extremity Denies any chest pain, palpitation, dizziness and SOB Physical Exam Physical Exam: General- No acute distress Head- atraumatic Eyes- PERRL, EOMI, ENT- oropharynx clear Neck- supple, no JVD Lungs- clear to auscultation Heart- regular rhythm; no murmur Abdomen- normal bowel sounds, soft, nontender Extremities- no calf tenderness, Deep ulcer right medial heel, Ulceration and discoloration of right 5th digit Neuro- alert, oriented x 3; PERRL, EOMI; no facial palsy; no dysarthria Skin- warm & dry Results & Data Results & Data ([facility]) Vital Signs (Past 12 Hours) Vital Signs Pulse Resp BP Pulse Ox 09/23/20 11:00 68 10 L 123/67 95 09/23/20 09:40 75 19 145/85 H 99 09/23/20 08:39 96 H 18 154/83 H 99 09/23/20 07:53 100 H 131/72 98 09/23/20 06:58 80 140/76 97 09/23/20 05:58 82 18 123/74 98 09/23/20 04:58 78 14 116/73 92 (1) Acute leg pain Laterality: right Qualified Code(s): M79.604 - Pain in right leg
[2020-09-23] MEDS: HEPARIN SODIUM/DEXTROSE 25,000 UNITS/500 ML BAG IV SCH (17:01)
--- NOTE | 2020-09-23 18:05 | Vascular Medicine ProgressNote ---
Date of Service September 23, 2020 Assessment & Plan (1) PAD (peripheral artery disease): Plan: 2. RT heel ulceration-- WIfI 2 3 0 (stage 4) 3. Type II diabetes complicated by peripheral neuropathy 4. 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 Hypertension, Dyslipidemia 6. Anemia Patient evaluated with bedside ultrasound. SFA popliteal stents appear widely patent. Minimal flow in GORAN. Toe pressures remain flat. Plan for repeat attempted endovascular intervention to tibial arteries tomorrow. Continue heparin overnight. Continue clopidogrel. Pain control. Discussed plan with patient and . If unable to restore more robust flow to distal foot will need to consider further evaluation by vascular surgery at [facility]. Admission and Anticipated Discharge Date Admission Date: September 21, 2020 Subjective Intermittent right foot pain requiring as needed Dilaudid overnight. Comfortable today. Review of Systems Review of Systems: All systems reviewed & are unremarkable except as noted in HPI & below Physical Exam Physical Exam: General: Comfortable, no acute distress Eyes: Sclerae anicteric, extraocular movements intact Lungs: Clear to auscultation bilaterally Cardiac: Regular rate and rhythm, no murmurs Psych: Alert orient x3, normal affect and mood Extremities/Vascular: --Right foot warm. Toes with reduced cap refill -- Right DP/PT nonpalpable, dopplerable DP/PT pulses on the right. 1+ DP left. --Deep ulcer right medial heel --Ulceration and discoloration of right 5th digit --Purple discoloration right great medial toe Results & Data ([facility]) Vital Signs (Past 12 Hours) Vital Signs Pulse Resp BP Pulse Ox 09/23/20 11:00 68 10 L 123/67 95 09/23/20 09:40 75 19 145/85 H 99 09/23/20 08:39 96 H 18 154/83 H 99 09/23/20 07:53 100 H 131/72 98 09/23/20 06:58 80 140/76 97 PG Care Time/CCT Total # of Minutes Spent Total Time Spent with Patient: Total time spent is greater than 50% in coor dination of care (as documented) at patient's floor/unit and/or counseling patient: Coding Level of Care Code 16782 Subseq Hosp Care Lvl 3 Diagnoses PAD (peripheral artery disease) I73.9
[2020-09-23 23:28] LABS: Partial Thromboplastin Ratio 1.4; Partial Thromboplastin Time 37.4 Seconds (21.0-31.0)
[2020-09-23] MEDS ORDERED: HEPARIN SOD (PORCINE) 1000 UNIT/ML IV ONE (23:52)
[2020-09-24] MEDS: HYDROmorphone INJ 0.5 MG/0.5 ML SYR IV PRN ×3 (00:58→23:13)
[2020-09-24] MEDS ORDERED: INSULIN ASPART 100 UNITS/ML 3 ML PEN SC ONE (02:00)
[2020-09-24] MEDS: traMADol HCL 50 MG TABLET PO PRN (02:20)
[2020-09-24 05:08] LABS: Basophils # (auto) 0.01 K/uL (0-0.2); Basophils % (auto) 0.1 %; Eosinophils # (auto) 0.23 K/uL (0-0.5); Hematocrit (blood only) 28.5 % (42-52); Hemoglobin 9.4 g/dL (14.0-18.0); Immature Granulocytes # (auto) 0.03 K/uL (0.00-0.02); Immature Granulocytes % (auto) 0.3 %; Lymphocytes # (auto) 1.81 K/uL (1.2-3.4); Lymphocytes % (auto) 15.4 %; Mean Corpuscular Hemoglobin 27.8 pg (25-34); Mean Corpuscular Volume 84.3 fL (80-100); Mean Platelet Volume 8.8 fL (7.4-10.4); Monocytes # (auto) 1.41 K/uL (0.11-0.59); Neutrophils # (auto) 8.25 K/uL (1.4-6.5); Neutrophils % (auto) 70.2 %; Platelet Count 101 K/uL (130-400); RDW Coefficient of Variation 13.5 % (11.5-14.5); Red Blood Count 3.38 M/uL (4.7-6.1); White Blood Count 11.74 K/uL (4.8-10.8)
[2020-09-24 05:24] LABS: BUN Creatinine Ratio 15.1 (10-20); Calcium 8.2 mg/dl (8.5-10.1); Creatinine Clr Calc Pharmacy 99.1 ml/min; Est GFR (African American) 112.7 ml/min; Est GFR (Non-African American) 97.2 ml/min; Magnesium 1.9 mg/dl (1.8-2.4); Potassium 3.8 mmol/L (3.5-5.1)
[2020-09-24 05:27] LABS: Phosphorus 3.6 mg/dl (2.5-4.9)
[2020-09-24] MEDS: LOSARTAN POTASSIUM 25 MG TAB PO SCH (07:31)
[2020-09-24] MEDS: METOPROLOL SUCC 50MG EXT REL TAB PO SCH (07:31)
[2020-09-24] MEDS: CLOPIDOGREL BISULFATE 75 MG TAB PO SCH (07:31)
[2020-09-24] MEDS: ATORVASTATIN 40 MG TAB PO SCH (07:31)
[2020-09-24] MEDS: INSULIN ASPART 100 UNITS/ML 3 ML PEN SC SCH ×4 (07:33→21:14)
[2020-09-24] MEDS ORDERED: RECOMBINANT IV STA (08:20)
[2020-09-24] MEDS ORDERED: SODIUM CHLORIDE 0.9% IV STA (08:20)
[2020-09-24] MEDS ORDERED: ALTEPLASE IV STA (08:20)
[2020-09-24 08:50] LABS: Partial Thromboplastin Time 53.2 Seconds (21.0-31.0)
[2020-09-24] MEDS ORDERED: RIVAROXABAN 20 MG TAB PO SCH (09:00)
[2020-09-24] MEDS ORDERED: INSULIN GLARGINE SOLOSTAR 100 UNITS/ML 3 ML PEN SC SCH ×2 (09:00→21:00)
[2020-09-24] MEDS ORDERED: fentaNYL citrate 100 MCG/2 ML VIAL ONE ×2 (09:23→11:46)
[2020-09-24] MEDS ORDERED: HEPARIN (PORCINE) 1000 UNIT/ML 10 ML (CATH LAB USE ONLY) ONE ×2 (09:23→12:06)
[2020-09-24] MEDS ORDERED: niCARdipine HCL INJ 2.5 MG/ML 10 ML AMP ONE (09:23)
[2020-09-24] MEDS ORDERED: MIDAZOLAM HCL 1 MG/ML 2ML VIAL ONE ×3 (09:23→12:43)
[2020-09-24] MEDS ORDERED: NITROGLYCERIN/D5W 100MCG/ML 20ML SYR ONE (09:29)
--- NOTE | 2020-09-24 09:43 | Pre Anesthesia Assessment ---
Date of Service September 24, 2020 Pre Sedation Assessment Vital Signs Temp Pulse Pulse Resp BP BP Pulse Ox 09/24/20 05:00 78 15 147/79 H 97 09/24/20 04:01 79 19 161/88 H 93 09/24/20 04:00 97.9 F 09/24/20 02:59 78 15 174/102 H 99 09/24/20 01:00 84 12 170/92 H 90 09/24/20 00:00 99.5 F 76 09/23/20 23:59 79 16 145/81 H 93 09/23/20 22:59 76 12 155/77 H 93 09/23/20 22:13 99.0 F 09/23/20 21:59 79 14 148/86 H 95 09/23/20 21:00 79 20 164/74 H 94 09/23/20 20:00 99.0 F 77 15 150/80 H 96 09/23/20 18:59 76 15 149/80 H 94 09/23/20 17:00 85 16 125/81 93 09/23/20 15:59 75 17 157/79 H 97 09/23/20 15:24 79 17 132/83 98 09/23/20 14:59 76 17 167/96 H 99 09/23/20 14:00 73 3 L 158/89 H 100 09/23/20 12:59 65 14 115/62 96 09/23/20 11:59 72 13 128/72 98 09/23/20 11:00 68 10 L 123/67 95 Cardiovascular RRR, no murmur, no edema Respiratory normal respiratory effort, lungs clear to auscultation Pre-Sedation Airway Assessment Smoking Status: Never smoker Hx Sleep Apnea: No Hx Difficult Intubation: No Short, Thick Neck: No Thyromental Distance: > or= 3.5 Finger Breadths Oral Cavity: + WNL Mallampati Class: III ASA: ASA4 NPO Status Date of Last Intake of Fluids: 09/24/20 Time of Last Intake of Fluids: 07:30 Last Oral Intake of Fluids Comment: sip with meds Date of Last Intake of Solid Food: 09/23/20 Time of Last Intake of Solid Foods: 08:00 Procedure Planning Contraindications for Sedation: none Current Medications Reviewed: Yes Notes The planned sedation has been discussed with the patient. Informed Consent was obtained. I have identified the patient, determined the appropriateness of sedation and have assessed the patient immediately prior to the procedure. All medicine(s) and interventions are by my order.
[2020-09-24] MEDS ORDERED: ADENOSINE IV SOLN 3 MG/ML 2 ML VIAL IV ONE (11:30)
[2020-09-24] MEDS: HEPARIN SODIUM/DEXTROSE 25,000 UNITS/500 ML BAG IV SCH (11:43)
--- NOTE | 2020-09-24 13:00 | Pharmacy Report ---
Pharmacy Glycemic Short Note 2 - Date of Service September 24, 2020 - Glycemic Short BSG Results (Last 24 hours): 09/23/20 09/23/20 09/24/20 16:32 20:01 04:57 Glucose 140 H POC Glucose 164 H 179 H 09/24/20 07:27 Glucose POC Glucose 160 H OUTPATIENT ANTIDIABETIC REGIMEN: * Glipizide 5mg PO Q AM * Metformin 850mg PO TID * Sitagliptin 100mg PO daily * A1c = 9.2% 09/22/20 ASSESSMENT: 09/24 * Pt received 51 units of sq insulin yesterday, 24 units of basal with improving BSGs * Pt NPO this morning for surgery, Fasting improving- decreased AM lantus by 50% and will scale PM dose to same Total basal as yesterday * Prandial BSGs improving, will continue current novolog parameters and reassess when patient ordered diet again 09/23 * Pts BSG elevated in the 200s yesterday, trended down over night * Fasting this AM 191 mg/dL- will increase lantus 20% * Lunch BSG elevated although overall trend decreasing, will tighten parameters with dinner 09/22 * Poorly controlled type 2 diabetic admitted for ischemic RLE in the setting of PAD * Will initiate weight based insulin doses, using "moderate" stress level. 1st dose of basal insulin to be given after today's procedure. PLAN FOR INPATIENT GLYCEMIC CONTROL: * Hold outpatient oral diabetes medications * Basal insulin * Lantus 6 units x 1 this AM, Scale for PM 12/18 units * Bolus insulin * NovoLog per scale ACHS or Q6hrs while NPO * Goal Range: Low 110 mg/dL - High 140 mg/dL * Correction Factor: 25 mg/dL/unit * Nutritional / Prandial insulin per carb ratio of 1 unit per 9 grams CHO consumed PLAN FOR DISCHARGE: * to be determined
--- NOTE | 2020-09-24 13:34 | Post Anesthesia Assessment ---
Date of Service September 24, 2020 Post Sedation Assessment Vital Signs Temp Pulse Pulse Resp BP BP Pulse Ox 09/24/20 05:00 78 15 147/79 H 97 09/24/20 04:01 79 19 161/88 H 93 09/24/20 04:00 97.9 F 09/24/20 02:59 78 15 174/102 H 99 09/24/20 01:00 84 12 170/92 H 90 09/24/20 00:00 99.5 F 76 09/23/20 23:59 79 16 145/81 H 93 09/23/20 22:59 76 12 155/77 H 93 09/23/20 22:13 99.0 F 09/23/20 21:59 79 14 148/86 H 95 09/23/20 21:00 79 20 164/74 H 94 09/23/20 20:00 99.0 F 77 15 150/80 H 96 09/23/20 18:59 76 15 149/80 H 94 09/23/20 17:00 85 16 125/81 93 09/23/20 15:59 75 17 157/79 H 97 09/23/20 15:24 79 17 132/83 98 09/23/20 14:59 76 17 167/96 H 99 09/23/20 14:00 73 3 L 158/89 H 100 Recovery Score Activity: Moves 4 extremities Respiration: Deep Breath/Cough Circulation: +/-20% PreAnes Value Consciousness: Fully Awake Oxygen Saturation: O2 needed for >90% Discharge Sedation Level of Care: Fast Track Phase II Post Sedation Plan On clinical assessment, the patient appears to have tolerated the sedation without complications. Patient is recovering as anticipated. Patient will continue to be monitored by nursing and may be discharged when sedation discharge criteria are met per below protocol. Upon Completions of procedure up to 15 minutes continue every 5 minute vital signs and the P.A.R. score; then discharge to a Phase I or Fast Track to Phase II per the following guidelines: * Discharge Patient to appropriate Phase II area if PAR is 8 or greater or return to pre- procedure baseline. The post - procedure orders will be as directed. * If PAR score is less than 8 or not return to pre-procedure baseline then patient will follow Phase I monitoring till PAR is reached for Phase II. The Phase I may be done in procedure room or may call to secure a Phase I area. * If naloxone or flumazenil are used for reversal, hold in Phase I for continued monitoring from when last reversal dose was given for a minimum of 60 minutes or longer pending the nurse and/or physician discretion of patient condition before discharge to Phase II. Please call the Sedation Physician to re-evaluate and complete post-note for discharge to Phase II area. Do NOT discharge from procedure sedation or Phase 1 until post- sedation evaluation note is complete by procedure /sedation MD Sedation Discharge Instructions to be given to the patient at discharge to home.
--- NOTE | 2020-09-24 13:42 | Endovascular Procedure Note ---
PG Endovascular Procedure Rpt Pre & Post Diagnosis Critical limb ischemia I identified the patient and participated in the time-out.: Yes Procedure Operation Date: 09/24/20 09:30 Actual Procedures p Angio Extremity Unilateral - Lauor Montejo MD Surgeon Jordy Montejo MD Screen Printing Machine Operator Helper cheri salmeron Estimated Blood Loss 30 Findings See Below Right lower extremity-- -INSOLE BUFFER, profunda widely patent -SFA to popliteal stents widely patent with brisk flow -GORAN 40% ostial/proximal disease. 100% latemid occlusion. Distal vessel fills via collaterals with slow flow in DPA -DOBBY LOOM WEAVER 100% occluded proximally. Fills at that the ankle via collaterals from peroneal. Anesthesia Type RN Sedation Radiation Exposure (mGv) Radiation (mGy): 161 Contrast Contrast: 120 Complications none Disposition Accompanied Patient To Recovery: No Disposition: Surgical ICU Description of Procedure Antegrade right INSOLE BUFFER access obtained under ultrasound guidance with micropuncture needle Short 5 Fr sheath placed to INSOLE BUFFER into SFA. Angiography via sheath. Proximal GORAN occlusion crossed with command wire GORAN occlusion dilated with 2.0 balloon Command wire exchanged for Regalia wire. Wire navigated across pedal arch into lateral plantar artery. Deep plantar artery dilated with 1.5 balloon Wire exchanged for command wire which was then navigated across distal DOBBY LOOM WEAVER stenosis back into mid DOBBY LOOM WEAVER retrograde Bryson IVUS catheter placed into DPA artery. Pullback revealed severe disease/possible dissection in mid GORAN. Calcified proximal GORAN with residual thrombus noted in ostial TPT. GORAN dilated again with 2.5 balloon. Still with no flow across approximately 5 cm mid GORAN occlusion despite IA vasodilators Second command wire placed into PDA and directed antegrade across occlusion into lateral plantar artery. Posterior tibial artery dilated with 2.0 balloon Given additional IA vasodilators. Still with no GORAN flow, limited DOBBY LOOM WEAVER flow Mid to distal GORAN stented with 2 overlapping drug-eluting stents (2.25 x 28 Xience, 2.25 x 30 Herberth). Post stenting had antegrade flow in GORAN down into DPA. Entire length of posterior tibial artery into the foot dilated with 2.0 balloon Additional IA vasodilators administered. Final result three-vessel runoff to the ankle. DOBBY LOOM WEAVER continues around ankle and gives off lateral plantar artery. GORAN with sluggish flow into DPA. Minimal flow across pedal arch. Contrast used: 120 Moderate sedation: [id number] Access closure: Mynx, manual closure Summary: 1. Right lower extremity --widely patent SFA to popliteal stents. Mid GORAN occlusion. Slow flow in DPA via collaterals. Proximal DOBBY LOOM WEAVER occluded proximally with reconstitution at ankle. Peroneal widely patent. 2. Successful angioplasty and stenting of mid GORAN occlusion with 2 overlapping drug-eluting stents (2.25 x 28 Xience, 2.25 x 30 Herberth). 3. Successful angioplasty of posterior tibial artery with 2.0 balloon 4. Angioplasty of pedal arch with 1.5 and 2.0 balloons Final result: Three-vessel runoff to the ankle. Patent DOBBY LOOM WEAVER and lateral plantar artery in the foot. Patent DPA with sluggish flow. Recommendations: Continue antiplatelet therapy with clopidogrel. If hemoglobin stable resume anticoagulation with Xarelto tomorrow Follow-up non-invasive vascular next week. I attest to the content of the Intraoperative Record and any orders documented therein. Any exceptions are noted below. Vascular Charges Angiography/Venography Procedure 1: Angiography/Venography charges: [id number] Initial 3rd order or selective abd, pelvic, or LE branch Lower Extremity Interventions Procedure 1: Lower Extremity Intervention charges: [id number] Stent plcmt, tibial, peroneal art, UL, initial vessel Procedure 2: Lower Extremity Intervention charges: [id number] Angioplasty, tibial, peroneal artery, UL each add'l vessel Additional Services Procedure 1: Additional Services Charges: 70271 Ultrasound guidance - vascular access Procedure 2: Additional Services Charges: 64088 Moderate sedation initial 15 min Procedure 3: Additional Services Charges: 05229 Moderate sedation, each additional 15 min
[2020-09-24] MEDS ORDERED: SODIUM CHLORIDE 0.9% 1000ML 1,000 ML IV SCH (13:45)
--- NOTE | 2020-09-24 19:31 | Hospitalist Progress Note ---
Date of Service September 24, 2020 Assessment & Plan (1) Arterial occlusion, lower extremity: Plan: Status post endovascular intervention of right SFA/popliteal arteries on 09/06/2020 He was admitted today with acute right leg pain and occlusion of the SFA to popliteal Status post intra-arterial thrombolysis with successful placement of TPA catheter on 09/21/2020 Receiving intra-arterial TPA, intravenous heparin and also antiplatelet therapy Appreciate vascular surgery input and recommendation Status post second procedure by Dr. Montejo on 09/22/2020 Stent to proximal SFA Stent to popliteal Mechanical thrombectomy SFA Angioplasty 2 GORAN, peroneal and CLIENT ENGAGEMENT SPECIALIST Plan for repeat attempted endovascular intervention to tibial arteries tomorrow. Continue heparin overnight. Continue clopidogrel and statin If unable to restore more blood flow to distal foot, will need to consider further evaluation by vascular surgery at [facility]. Service Secretary on board S/p repeat endovascular intervention perormed on 09/[address] Montejo 1. Right lower extremity --widely patent SFA to popliteal stents. Mid GORAN occlusion. Slow flow in DPA via collaterals. Proximal CLIENT ENGAGEMENT SPECIALIST occluded proximally with reconstitution at ankle. Peroneal widely patent. Successful angioplasty and stenting of mid GORAN occlusion with 2 overlapping drug-eluting stents (2.25 x 28 Xience, 2.25 x 30 Herberth). Successful angioplasty of posterior tibial artery with 2.0 balloon Angioplasty of pedal arch with 1.5 and 2.0 balloons Final result: Three-vessel runoff to the ankle. Patent CLIENT ENGAGEMENT SPECIALIST and lateral plantar artery in the foot. Patent DPA with sluggish flow. Case discussed with Dr. Montejo that recommended antiplatelet therapy with Plavix for now. If hemoglobin stable, will resume anticoagulation with Xarelto tomorrow Follow-up non-invasive vascular next week. (2) Acute leg pain: Plan: Secondary to right endovascular occlusion involving SFA/popliteal arteries Continue pain control Pain stable (3) PAD (peripheral artery disease): Plan: This is a 65-year-old male with PMH of PAD with recent endovascular intervention with right SFA/popliteal arteries on 09/06/[address] Montejo, type 2 diabetes, dyslipidemia, hypertension, s/p pacemaker placement and other medical problems listed below who presents after vascular follow-up with right lower extremity pain and is s/p intra-arterial thrombolysis by Dr. Montejo. Presented to vascular follow up appointment today with evidence of acute limb ischemia Right lower extremity arterial duplex reveals occlusion of SFA/popliteal arteries with severely diminished flow in the TPT/GORAN S/p intra-arterial thrombolysis by Dr. Montejo with successful placement of TPA infusion catheter Status post second procedure by Dr. Montejo on 09/22/2020 Mgmt per corrections lieutenant, interventional cardiology Remains stable in ICU (4) Diabetes mellitus, type II: Plan: Most recent hemoglobin A1c is 9.2 on 09/22/20 Continue to hold home agents Pharmacy on board for Glycemic management On Lantus and insulin sliding scale (5) HTN (hypertension): Plan: Continue home losartan, Toprol BP stable (6) CAD (coronary artery disease): Plan: Has atherosclerotic cardiovascular disease Stable H/o CABG in 2007 Continue statin and plavix Code status: FULL PCP: Emil Dispo: continue monitor in the ICU Admission and Anticipated Discharge Date Admission Date: September 21, 2020 Subjective Pt was seen and examined for follow up of right lower extremity foot ulcer Lying in bed with no distress watching TV Pt said that he feels ok. Denies any chest pain, palpitation, dizziness and SOB Physical Exam Physical Exam: General- No acute distress Head- atraumatic Eyes- PERRL, EOMI, ENT- oropharynx clear Neck- supple, no JVD Lungs- clear to auscultation Heart- regular rhythm; no murmur Abdomen- normal bowel sounds, soft, nontender Extremities- no calf tenderness, Deep ulcer right medial heel, Ulceration and discoloration of right 5th digit Neuro- alert, oriented x 3; PERRL, EOMI; no facial palsy; no dysarthria Skin- warm & dry Results & Data Results & Data ([facility]) Vital Signs (Past 12 Hours) Vital Signs Temp Pulse Pulse Resp BP BP Pulse Ox 09/24/20 17:21 37.2 C 89 14 110/72 95 09/24/20 16:19 85 17 142/74 H 97 09/24/20 15:20 75 17 166/71 H 96 09/24/20 14:00 79 18 97 09/24/20 13:45 60 16 130/75 98 09/24/20 13:30 61 16 126/71 99 09/24/20 07:47 74 5 L 161/87 H 98 (1) Acute leg pain Laterality: right Qualified Code(s): M79.604 - Pain in right leg
[2020-09-24] MEDS ORDERED: INSULIN GLARGINE SOLOSTAR 100 UNITS/ML 3 ML PEN SC ONE (21:00)
--- NOTE | 2020-09-25 00:01 | Vascular Medicine ProgressNote ---
Date of Service September 24, 2020 Assessment & Plan (1) PAD (peripheral artery disease): Plan: 2. RT heel ulceration 3. Type II diabetes complicated by peripheral neuropathy 4. 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 Hypertension, Dyslipidemia 6. Anemia 7. Thrombocytopenia Patient post repeat endovascular intervention earlier this morning. Final result with three-vessel runoff to the ankle. COST ANALYST with direct flow into the f oot. Still with sluggish flow in distal GORAN/DPA. At this point do not feel there is need for additional revascularization. Hopeful that with time and additional anticoagulation his microcirculation of the foot will improve enough for resolution of pain and wound healing of his heel. Continue clopidogrel. If hemoglobin/platelets stable tomorrow plan to restart for anticoagulation with Xarelto tomorrow. If continued hemoglobin drop would consider noncontrast CT of abdomen pelvis to rule out RP bleed. If stable potentially home tomorrow. Plan discussed with patient/ and Dr. Hayes. Admission and Anticipated Discharge Date Admission Date: September 21, 2020 Subjective Patient underwent endovascular intervention to anterior tibial/posterior tibial arteries this morning. Post procedure patient endorsed mild residual right foot pain. No other new complaints. Review of Systems Review of Systems: All systems reviewed & are unremarkable except as noted in Subjective Physical Exam Physical Exam: General: Comfortable, no acute distress Eyes: Sclerae anicteric Lungs: Clear to auscultation bilaterally Cardiac: Regular rate and rhythm, no murmurs Psych: Alert orient x3, normal affect and mood Extremities/Vascular: Right DEGREASER OPERATOR access site soft with no hematoma --Right foot warm. Toes purplish hue with minimally reduced cap refill -- Right DP/PT nonpalpable, dopplerable DP/PT pulses on the right. 1+ DP left. --Deep ulcer right medial heel dressed --Ulceration and dark purple discoloration of right 5th digit --Minimal discoloration right great medial toe Results & Data ([facility]) Vital Signs (Past 12 Hours) Vital Signs Temp Pulse Pulse Resp BP BP Pulse Ox 09/24/20 17:21 99.0 F 89 14 110/72 95 09/24/20 16:19 85 17 142/74 H 97 09/24/20 15:20 75 17 166/71 H 96 09/24/20 14:00 79 18 97 09/24/20 13:45 60 16 130/75 98 09/24/20 13:30 61 16 126/71 99 PG Care Time/CCT Total # of Minutes Spent Total Time Spent with Patient: Total time spent is greater than 50% in coordination of care (as documented) at patient's floor/unit and/or counseling patient: Coding Level of Care Code 52142 Subseq Hosp Care Lvl 3 Diagnoses PAD (peripheral artery disease) I73.9
[2020-09-25] MEDS: HYDROmorphone INJ 0.5 MG/0.5 ML SYR IV PRN (03:32)
[2020-09-25 04:37] LABS: Basophils # (auto) 0.01 K/uL (0-0.2); Basophils % (auto) 0.1 %; Eosinophils # (auto) 0.18 K/uL (0-0.5); Eosinophils % (auto) 1.8 %; Hematocrit (blood only) 22.8 % (42-52); Hemoglobin 7.5 g/dL (14.0-18.0); Immature Granulocytes # (auto) 0.03 K/uL (0.00-0.02); Immature Granulocytes % (auto) 0.3 %; Lymphocytes % (auto) 16.7 %; Mean Corpuscular Hemoglobin 27.7 pg (25-34); Mean Corpuscular Hgb Conc 32.9 g/dL (32-36); Mean Corpuscular Volume 84.1 fL (80-100); Monocytes # (auto) 1.25 K/uL (0.11-0.59); Monocytes % (auto) 12.2 %; Neutrophils # (auto) 7.04 K/uL (1.4-6.5); Neutrophils % (auto) 68.9 %; Platelet Count 118 K/uL (130-400); RDW Coefficient of Variation 13.6 % (11.5-14.5); RDW Standard Deviation 41.5 fL (36.4-46.3); Red Blood Count 2.71 M/uL (4.7-6.1); White Blood Count 10.21 K/uL (4.8-10.8)
[2020-09-25 04:58] LABS: BUN Creatinine Ratio 16.7 (10-20); Calcium 8.1 mg/dl (8.5-10.1); Est GFR (African American) 105.2 ml/min; Est GFR (Non-African American) 90.8 ml/min; Potassium 4.1 mmol/L (3.5-5.1)
[2020-09-25 05:19] LABS: Polychromasia 1+
[2020-09-25] MEDS: LOSARTAN POTASSIUM 25 MG TAB PO SCH (08:27)
[2020-09-25] MEDS: CLOPIDOGREL BISULFATE 75 MG TAB PO SCH (08:27)
[2020-09-25] MEDS: ATORVASTATIN 40 MG TAB PO SCH (08:27)
[2020-09-25] MEDS: INSULIN ASPART 100 UNITS/ML 3 ML PEN SC SCH ×4 (08:27→20:49)
[2020-09-25] MEDS: METOPROLOL SUCC 50MG EXT REL TAB PO SCH (08:28)
[2020-09-25] MEDS: INSULIN GLARGINE SOLOSTAR 100 UNITS/ML 3 ML PEN SC SCH ×2 (08:28→20:49)
--- NOTE | 2020-09-25 08:29 | Pharmacy Report ---
Pharmacy Glycemic Short Note 2 - Date of Service September 25, 2020 - Glycemic Short BSG Results (Last 24 hours): 09/24/20 09/24/20 09/25/20 16:27 21:11 04:14 Glucose 124 H POC Glucose 176 H 199 H OUTPATIENT ANTIDIABETIC REGIMEN: * Glipizide 5mg PO Q AM * Metformin 850mg PO TID * Sitagliptin 100mg PO daily * A1c = 9.2% 09/22/20 ASSESSMENT: 09/25 * BSGS yesterday were 160 - (OR so no lunch) - 176-199 mg/dL. Patient received 34 units of insulin (24 units of basal and 10 units of bolus) * Fasting today is 124 mg/dL. * Continue Lantus 12 units BID as fasting continues to improve. * Slightly tighten CR as patient trends up slightly postprandially. 09/24 * Pt received 51 units of sq insulin yesterday, 24 units of basal with improving BSGs * Pt NPO this morning for surgery, Fasting improving- decreased AM lantus by 50% and will scale PM dose to same Total basal as yesterday * Prandial BSGs improving, will continue current novolog parameters and reassess when patient ordered diet again 09/23 * Pts BSG elevated in the 200s yesterday, trended down over night * Fasting this AM 191 mg/dL- will increase lantus 20% * Lunch BSG elevated although overall trend decreasing, will tighten parameters with dinner 09/22 * Poorly controlled type 2 diabetic admitted for ischemic RLE in the setting of PAD * Will initiate weight based insulin doses, using "moderate" stress level. 1st dose of basal insulin to be given after today's procedure. PLAN FOR INPATIENT GLYCEMIC CONTROL: * Hold outpatient oral diabetes medications * Basal insulin * Lantus 12 units SQ BID * Bolus insulin * NovoLog per scale ACHS or Q6hrs while NPO * Goal Range: Low 110 mg/dL - High 140 mg/dL * Correction Factor: 25 mg/dL/unit * Nutritional / Prandial insulin per carb ratio of 1 unit per 8 grams CHO consumed PLAN FOR DISCHARGE: * Patient's HbA1C is elevated above goal. Goal is <8% per patient's comor bidities. * Consider initiation of Lantus 25 units daily as an outpatient. * If patient does not want insulin, recommend considering MTM visit with [facility] pharmacist to address diet, exercise, and medication optimization.
[2020-09-25] MEDS: traMADol HCL 50 MG TABLET PO PRN ×4 (08:30→23:13)
--- NOTE | 2020-09-25 08:55 | Vascular Medicine ProgressNote ---
Date of Service September 25, 2020 Assessment & Plan (1) PAD (peripheral artery disease): Plan: 2. RT heel ulceration 3. Type II diabetes complicated by peripheral neuropathy 4. 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 Hypertension, Dyslipidemia 6. Anemia 7. Thrombocytopenia Pt discussed with Dr. Montejo and Dr. Hayes. Patient post repeat endovascular intervention yesterday. Final result with three-vessel runoff to the ankle. DIGESTER with direct flow into the foot. Still with sluggish flow in distal GORAN/DPA. Improvement in his right foot pain today. On exam right foot is warm, pedal pulses present on doppler. Hemoglobin dropped to 7.5 this am, plts 118. Plan to obtain CT of abdomen/pelvis to rule out RP bleed. Will also transfuse with one unit PRBC. Continue clopidogrel, plan to start Xarelto once RP bleed ruled out and anemia stabilized. Admission and Anticipated Discharge Date Admission Date: September 21, 2020 Subjective Patient underwent endovascular intervention to anterior tibial/posterior tibial arteries yesterday. Feeling better today, significantly less foot pain, now 3/10 at most. Slept well. No chest pain or dyspnea. No melena, hematochezia or hematuria. No flank pain Telemetry reviewed- no events Physical Exam Physical Exam: General: Comfortable, no acute distress Eyes: Sclerae anicteric Lungs: Clear to auscultation bilaterally Cardiac: Regular rate and rhythm, no murmurs Psych: Alert orient x3, normal affect and mood Extremities/Vascular: Right CAN FEEDER access site tender but soft with no hematoma --Right foot warm. Toes purplish hue with minimally reduced cap refill -- Right DP/PT nonpalpable, dopplerable DP/PT pulses on the right. 1+ DP left. --Deep ulcer right medial heel --Ulceration and dark purple discoloration of right 5th digit --Minimal discoloration right great medial toe Results & Data ([facility]) Vital Signs (Past 12 Hours) Vital Signs Temp Pulse Resp BP Pulse Ox 09/25/20 05:19 83 15 112/69 93 09/25/20 04:19 37.2 C 81 13 113/67 94 09/25/20 03:19 82 18 103/69 95 09/25/20 02:19 83 20 127/67 96 09/25/20 01:19 83 14 109/65 94 09/25/20 00:19 37.2 C 88 15 119/70 93 09/25/20 00:00 85 09/24/20 23:19 82 14 111/69 92 09/24/20 22:19 84 18 111/74 94 09/24/20 21:19 81 14 124/69 98 Laboratory Results Laboratory Results - last 24 hr 09/24/20 09/24/20 09/24/20 11:20 12:02 16:27 WBC RBC Hgb Hct MCV MCH MCHC RDW Std Deviation RDW Coeff of Ella Plt Count MPV Immature Gran % (Auto) Neut % (Auto) Lymph % (Auto) Hays % (Auto) Eos % (Auto) Baso % (Auto) Neut # (Auto) Lymph # (Auto) Hays # (Auto) Eos # (Auto) Baso # (Auto) Immature Gran # (Auto) Polychromasia Activ Coag Time Kaolin 169 H 219 H Sodium Potassium Chloride Carbon Dioxide Anion Gap BUN Creatinine Est Cr Clr Drug Dosing Est GFR ( Amer) Est GFR (Non-Af Amer) BUN/Creatinine Ratio Glucose POC Glucose 176 H Calcium Phosphorus Magnesium 09/24/20 09/25/20 09/25/20 21:11 04:14 04:14 WBC 10.21 RBC 2.71 L Hgb 7.5 L Hct 22.8 L MCV 84.1 MCH 27.7 MCHC 32.9 RDW Std Deviation 41.5 RDW Coeff of Ella 13.6 Plt Count 118 L MPV 9.0 Immature Gran % (Auto) 0.3 Neut % (Auto) 68.9 Lymph % (Auto) 16.7 Hays % (Auto) 12.2 Eos % (Auto) 1.8 Baso % (Auto) 0.1 Neut # (Auto) 7.04 H Lymph # (Auto) 1.70 Hays # (Auto) 1.25 H Eos # (Auto) 0.18 Baso # (Auto) 0.01 Immature Gran # (Auto) 0.03 H Polychromasia 1+ Activ Coag Time Kaolin Sodium 134 L Potassium 4.1 Chloride 104 Carbon Dioxide 26 Anion Gap 4.0 BUN 14 Creatinine 0.85 Est Cr Clr Drug Dosing 84.0 Est GFR ( Amer) 105.2 Est GFR (Non-Af Amer) 90.8 BUN/Creatinine Ratio 16.7 Glucose 124 H POC Glucose 199 H Calcium 8.1 L Phosphorus 3.0 Magnesium 2.0 PG Care Time/CCT Total # of Minutes Spent Total Time Spent with Patient: Total time spent is greater than 50% in coordination of care (as documented) at patient's floor/unit and/or counseling patient: Coding Level of Care Code 50056 Subseq Hosp Care Lvl 3 Diagnoses PAD (peripheral artery disease) I73.9
[2020-09-25] MEDS ORDERED: SODIUM CHLORIDE 0.9% 250 ML IV PRN (09:06)
--- NOTE | 2020-09-25 11:05 | CT Scan Report ---
CT SCAN OF THE ABDOMEN AND PELVIS WITHOUT IV CONTRAST CLINICAL HISTORY: Drop in hemoglobin. Clinical concern for hemorrhage. COMPARISON STUDY: No priors. TECHNIQUE: CT scan of the abdomen and pelvis is performed from the lung bases to the proximal femora. Images are reviewed in the axial, sagittal, and coronal planes. IV contrast was not administered for this examination. A dose lowering technique was utilized adhering to the principles of ALARA. CT DOSE: 543.80 mGy.cm FINDINGS: Lung bases: The patient is status post midline sternotomy. The heart is mildly enlarged and without p ericardial effusion. Pacemaker leads are noted. The coronary arteries are densely calcified. A small hiatal hernia is noted. There is diminished attenuation of the cardiac blood pool as compared to the myocardium suggesting anemia. A fat-containing Bochdalek hernia is noted at the right lung base. The lung bases are otherwise clear noting bibasilar scarring/atelectasis. Liver: The unenhanced liver is normal in size, contour, and attenuation. There is no intrahepatic yazmin iary ductal dilatation. Gallbladder: There are calcified gallstones. Vicariously excreted contrast is present within the gall bladder lumen. Spleen: The spleen is normal in size. There is approximately 3 cm low-attenuation defect identified i n the upper pole. This is best seen on image #93. Pancreas: The unenhanced pancreas is mildly atrophic and grossly unremarkable. Adrenal glands: Unremarkable. Kidneys: The unenhanced kidneys demonstrate cortical atrophy and are without hydronephrosis. There is a 3 mm nonobstructing right renal calculus. There is no evidence of contour deforming renal mass les ion. There is asymmetrically retained cortical contrast in the right kidney as compared to the left. A perfusion defect is suggested in the right lower pole. Abdominal vasculature: The abdominal aorta is normal in course and caliber noting moderate atheroscle rotic calcification. A stent is partially visualized in the right femoral artery. Bowel: There is mild to moderate colonic diverticulosis without CT evidence of acute diverticulitis. No bowel obstruction is seen. There is moderate colonic fecal retention. The appendix is well-visual ized and normal. Peritoneum/retroperitoneum: There is a small retroperitoneal hemorrhage identified on the right. This tracks along the right psoas muscle into the right groin. This measures approximately 6 x 2 cm in ax ial dimension as seen on image #254. Trace retroperitoneal hemorrhage is seen in the left paracolic g utter. No intraperitoneal hemorrhage or abdominal ascites is identified. No intraperitoneal free air is identified. There is a fat-containing umbilical hernia. Lymphadenopathy: None. Pelvic viscera: The prostate gland is enlarged and heterogeneous noting median lobe hypertrophy. The bladder wall is thickened and trabeculated indicating chronic outlet obstruction. The bladder is fill ed with excreted contrast. Soft tissue infiltration is noted in the groin bilaterally. Skeletal structures: The skeletal structures are osteopenic. There is moderate lumbosacral spondylosi s. No lytic or blastic lesions are seen. IMPRESSION: 1. There are small right and trace left retroperitoneal hemorrhages as detailed above. 2. There is asymmetric cortical retention of IV contrast within the right kidney as compared to the l eft. There is a perfusion defect in the lower pole of the right kidney, as well as an well delineated low-attenuation defect in the upper pole of the spleen. These findings are indeterminant and not wel l assessed without IV contrast. These findings raise suspicion for infarction of the left kidney, wit h small infarcts also suspected in the right kidney and spleen. Clinical correlation will be essentia l. A contrast-enhanced examination would be required for further assessment. 3. Cholelithiasis and right-sided nephrolithiasis. 4. Colonic diverticulosis without CT evidence of acute diverticulitis. 5. Cardiomegaly. 6. Additional findings as above. ACT 112: Negative or not required by law. Electronically signed by: Gianluca Decker M.D. 09/25/2020 11:04 AM
[2020-09-25 18:30] LABS: Hemoglobin 8.9 g/dL (14.0-18.0)
--- NOTE | 2020-09-25 18:46 | Hospitalist Progress Note ---
Date of Service September 25, 2020 Assessment & Plan (1) Arterial occlusion, lower extremity: (2) PAD (peripheral artery disease): Plan: This is a 65-year-old male with PMH of PAD with recent endovascular intervention with right SFA/popliteal arteries on 09/06/[address] Montejo, type 2 diabetes, dyslipidemia, hypertension, s/p pacemaker placement and other medical problems listed below who presents after vascular follow-up with right lower extremity pain and is s/p intra-arterial thrombolysis by Dr. Montejo. Status post endovascular intervention of right SFA/popliteal arteries on 09/06/2020 He was admitted today with acute right leg pain and occlusion of the SFA to popliteal Status post intra-arterial thrombolysis with successful placement of TPA catheter on 09/21/2020 Receiving intra-arterial TPA, intravenous heparin and also antiplatelet therapy Appreciate vascular surgery input and recommendation Status post second procedure by Dr. Montejo on 09/22/2020 Stent to proximal SFA Stent to popliteal Mechanical thrombectomy SFA Angioplasty 2 GORAN, peroneal and TIMBER CRUISER Plan for repeat attempted endovascular intervention to tibial arteries tomorrow. Continue heparin overnight. Continue clopidogrel and statin If unable to restore more blood flow to distal foot, will need to consider further evaluation by vascular surgery at [facility]. Packaging Associate on board S/p repeat endovascular intervention perormed on 09/24/[address] Montejo Right lower extremity --widely patent SFA to popliteal stents. Mid GORAN occlusion. Slow flow in DPA via collaterals. Proximal TIMBER CRUISER occluded proximally with reconstitution at ankle. Peroneal widely patent. Successful angioplasty and stenting of mid GORAN occlusion with 2 overlapping drug-eluting stents (2.25 x 28 Xience, 2.25 x 30 [place]). Successful angioplasty of posterior tibial artery with 2.0 balloon Angioplasty of pedal arch with 1.5 and 2.0 balloons Final result: Three-vessel runoff to the ankle. Patent TIMBER CRUISER and lateral plantar artery in the foot. Patent DPA with sluggish flow. Case discussed with Dr. Montejo that recommended antiplatelet therapy with Plavix for now. If hemoglobin stable, will resume anticoagulation with Xarelto tomorrow Follow-up non-invasive vascular next week. 09/25 Hgb dropped today to 7.5 Case discussed with interventional vascular Will do type and crossed and transfused [address] abd/pelvis showed small right and trace left retroperitoneal hemorrhages Will continue to hold Xarelto Will monitor H/H and if continue to drop, will consider to repeat the CT abd/pelvis (3) Acute leg pain: Plan: Secondary to right endovascular occlusion involving SFA/popliteal arteries Continue pain control Pain stable (4) Abnormal CT scan, kidney: Plan: CT abd/pelvis showed asymmetric cortical retention of IV contrast within the right kidney as compared to the left. There is a perfusion defect in the lower pole of the right kidney, as well as an well delineated low-attenuation defect in the upper pole of the spleen. These findings are indeterminant and not well assessed without IV contrast. These findings raise suspicion for infarction of the left kidney, with small infarcts also suspected in the right kidney and spleen. Case discussed with Nephrology ( no official consult ) recommended to monitor since pt has no symptoms a Might consider to get a CTA abd pelvis for further eval if develop any symptoms or renal function declines (5) Diabetes mellitus, type II: Plan: Most recent hemoglobin A1c is 9.2 on 09/22/20 Continue to hold home agents Pharmacy on board for Glycemic management On Lantus and insulin sliding scale (6) HTN (hypertension): Plan: Continue home losartan, Toprol BP stable (7) CAD (coronary artery disease): Plan: Has atherosclerotic cardiovascular disease Stable H/o CABG in 2007 Continue statin and plavix Code status: FULL PCP: Emil Disposition Will transfer to PCU Admission and Anticipated Discharge Date Admission Date: September 21, 2020 Subjective Pt was seen and examined for follow up of endovascular intervention yesterday Lying in bed with no distress Pt said that he feels well He said that he has no pain in his abdomen, hematuria or flank pain Physical Exam Physical Exam: General- No acute distress Head- atraumatic Eyes- PERRL, EOMI, ENT- oropharynx clear Neck- supple, no JVD Lungs- clear to auscultation Heart- regular rhythm; no murmur Abdomen- normal bowel sounds, soft, nontender Extremities- no calf tenderness, Deep ulcer right medial heel, Ulceration and discoloration of right 5th digit Neuro- alert, oriented x 3; PERRL, EOMI; no facial palsy; no dysarthria Skin- warm & dry Results & Data Results & Data ([facility]) Vital Signs (Past 12 Hours) Vital Signs Temp Pulse Pulse Resp BP BP Pulse Ox 09/25/20 16:19 37.2 C 75 18 165/69 H 97 09/25/20 15:36 75 09/25/20 15:26 75 15 130/75 96 09/25/20 13:21 37.1 C 76 15 100/50 L 97 09/25/20 12:26 36.8 C 75 14 116/67 96 09/25/20 11:56 37.2 C 76 14 111/49 L 96 09/25/20 11:41 37.1 C 74 16 128/73 97 09/25/20 11:25 36.8 C 74 17 120/63 98 09/25/20 08:19 37.3 C 86 12 123/73 97 (1) Acute leg pain Laterality: right Qualified Code(s): M79.604 - Pain in right leg
[2020-09-26] MEDS: traMADol HCL 50 MG TABLET PO PRN ×4 (04:26→20:41)
[2020-09-26 07:51] LABS: Basophils # (auto) 0.03 K/uL (0-0.2); Basophils % (auto) 0.3 %; Eosinophils # (auto) 0.27 K/uL (0-0.5); Eosinophils % (auto) 2.5 %; Hemoglobin 9.2 g/dL (14.0-18.0); Immature Granulocytes # (auto) 0.03 K/uL (0.00-0.02); Immature Granulocytes % (auto) 0.3 %; Lymphocytes # (auto) 1.97 K/uL (1.2-3.4); Lymphocytes % (auto) 18.5 %; Mean Corpuscular Hemoglobin 27.9 pg (25-34); Mean Corpuscular Hgb Conc 32.9 g/dL (32-36); Mean Corpuscular Volume 84.8 fL (80-100); Mean Platelet Volume 9.3 fL (7.4-10.4); Monocytes # (auto) 1.27 K/uL (0.11-0.59); Monocytes % (auto) 11.9 %; Neutrophils # (auto) 7.08 K/uL (1.4-6.5); Neutrophils % (auto) 66.5 %; Platelet Count 156 K/uL (130-400); RDW Coefficient of Variation 13.8 % (11.5-14.5); RDW Standard Deviation 42.5 fL (36.4-46.3); White Blood Count 10.65 K/uL (4.8-10.8)
--- NOTE | 2020-09-26 08:22 | XCELERA ---
[id number]
[2020-09-26 08:27] LABS: Calcium 8.8 mg/dl (8.5-10.1); Creatinine Clr Calc Pharmacy 89.9 ml/min; Est GFR (African American) 107.9 ml/min; Est GFR (Non-African American) 93.1 ml/min; Magnesium 2.1 mg/dl (1.8-2.4); Potassium 3.9 mmol/L (3.5-5.1)
[2020-09-26 08:28] LABS: Phosphorus 3.5 mg/dl (2.5-4.9)
--- NOTE | 2020-09-26 08:55 | Pharmacy Report ---
Pharmacy Glycemic Short Note 2 - Date of Service September 26, 2020 - Glycemic Short BSG Results (Last 24 hours): 09/25/20 09/25/20 09/25/20 11:28 16:34 20:14 Glucose POC Glucose 189 H 163 H 170 H 09/26/20 09/26/20 07:15 07:31 Glucose 150 H POC Glucose 154 H OUTPATIENT ANTIDIABETIC REGIMEN: * Glipizide 5mg PO Q AM * Metformin 850mg PO TID * Sitagliptin 100mg PO daily * A1c = 9.2% 09/22/20 ASSESSMENT: 09/26/20 * BSGs yesterday were [phone] with receiving 52 units of insulin (24 units of basal and 28 units of bolus) * Fasting trending upwards slightly with fasting today of 154 mg/dL. Continue 12 units BID but give 15 if BSG > 150 mg/dL. * BSGs trend upwards postprandially. Tighten CR. 09/25 * BSGS yesterday were 160 - (OR so no lunch) - 176-199 mg/dL. Patient received 34 units of insulin (24 units of basal and 10 units of bolus) * Fasting today is 124 mg/dL. * Continue Lantus 12 units BID as fasting continues to improve. * Slightly tighten CR as patient trends up slightly postprandially. 09/24 * Pt received 51 units of sq insulin yesterday, 24 units of basal with improving BSGs * Pt NPO this morning for surgery, Fasting improving- decreased AM lantus by 50% and will scale PM dose to same Total basal as yesterday * Prandial BSGs improving, will continue current novolog parameters and reassess when patient ordered diet again 09/23 * Pts BSG elevated in the 200s yesterday, trended down over night * Fasting this AM 191 mg/dL- will increase lantus 20% * Lunch BSG elevated although overall trend decreasing, will tighten parameters with dinner 09/22 * Poorly controlled type 2 diabetic admitted for ischemic RLE in the setting of PAD * Will initiate weight based insulin doses, using "moderate" stress level. 1st dose of basal insulin to be given after today's procedure. PLAN FOR INPATIENT GLYCEMIC CONTROL: * Hold outpatient oral diabetes medications * Basal insulin * Lantus 12 units SQ BID (15 units if BSG > 150 mg/dL0 * Bolus insulin * NovoLog per scale ACHS or Q6hrs while NPO * Goal Range: Low 110 mg/dL - High 140 mg/dL * Correction Factor: 25 mg/dL/unit * Nutritional / Prandial insulin per carb ratio of 1 unit per 7 grams CHO consumed PLAN FOR DISCHARGE: * Patient's HbA1C is elevated above goal. Goal is <8% per patient's comorbidities. * Consider initiation of Lantus 25 units daily as an outpatient. * If patient does not want insulin, recommend considering MTM visit with [facility] pharmacist to address diet, exercise, and medication optimization.
[2020-09-26] MEDS: CLOPIDOGREL BISULFATE 75 MG TAB PO SCH (09:36)
[2020-09-26] MEDS: ATORVASTATIN 40 MG TAB PO SCH (09:36)
[2020-09-26] MEDS: INSULIN ASPART 100 UNITS/ML 3 ML PEN SC SCH ×4 (09:36→20:40)
[2020-09-26] MEDS: INSULIN GLARGINE SOLOSTAR 100 UNITS/ML 3 ML PEN SC SCH ×2 (09:37→20:40)
[2020-09-26] MEDS: LOSARTAN POTASSIUM 25 MG TAB PO SCH (09:38)
[2020-09-26] MEDS: METOPROLOL SUCC 50MG EXT REL TAB PO SCH (09:38)
--- NOTE | 2020-09-26 14:16 | Vascular Medicine ProgressNote ---
Date of Service September 26, 2020 Assessment & Plan (1) PAD (peripheral artery disease): Plan: 2. RT heel ulceration 3. Type II diabetes complicated by peripheral neuropathy 4. 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 Hypertension, Dyslipidemia 6. Anemia--small right RP bleed on CT 7. Thrombocytopenia Pt discussed with Dr. Montejo and Dr. Hayes. Patient post repeat endovascular intervention 09/24/20. Final result with three- vessel runoff to the ankle. DIGITAL SERVICE ENGINEER with direct flow into the foot. Still with sluggish flow in distal GORAN/DPA. Foot pain is significantly improved. On exam right foot is warm, pedal pulses present on doppler. Hgb improved today at 9.2 post transfusion yesterday. Platelets normalized. CT without contrast with a small right RP bleed. Will hold off on starting anticoagulation today, consider initiating Xarelto tomorrow if continued improvement/stabilization of anemia. Continue clopidogrel. CT also with questionable left renal infarction. Renal function stable. Asymptomatic. Echo unchanged no source of emboli. No atrial arrhythmia on telemetry. Will monitor. Admission and Anticipated Discharge Date Admission Date: September 21, 2020 Subjective Patient report further improvement today. Only with mild right foot pain. No abdominal/flank pain. No dyspnea or chest pain. No palpitations. Telemetry reviewed- no events Physical Exam Physical Exam: General: Comfortable, no acute distress Eyes: Sclerae anicteric Lungs: Clear to auscultation bilaterally Cardiac: Regular rate and rhythm, no murmurs Psych: Alert orient x3, normal affect and mood Extremities/Vascular: Right AEROSPACE STRESS ENGINEER access site tender but soft with no hematoma --Right foot warm. Toes purplish hue with minimally reduced cap refill -- Right DP/PT nonpalpable, dopplerable DP/PT pulses on the right. 1+ DP left. --Deep ulcer right medial heel --Ulceration and dark purple discoloration of right 5th digit --Minimal discoloration right great medial toe Results & Data ([facility]) Vital Signs (Past 12 Hours) Vital Signs Temp Pulse Pulse Resp BP Pulse Ox 09/26/20 11:05 37.0 C 72 18 163/87 H 100 09/26/20 07:44 70 09/26/20 07:34 36.8 C 70 16 133/73 93 09/26/20 04:18 37.5 C 72 20 139/68 95 Laboratory Results Laboratory Results - last 24 hr 09/25/20 09/25/20 09/25/20 16:34 18:20 20:14 WBC RBC Hgb 8.9 L Hct 27.0 L MCV MCH MCHC RDW Std Deviation RDW Coeff of Ella Plt Count MPV Immature Gran % (Auto) Neut % (Auto) Lymph % (Auto) Hunt % (Auto) Eos % (Auto) Baso % (Auto) Neut # (Auto) Lymph # (Auto) Hunt # (Auto) Eos # (Auto) Baso # (Auto) Immature Gran # (Auto) Sodium Potassium Chloride Carbon Dioxide Anion Gap BUN Creatinine Est Cr Clr Drug Dosing Est GFR ( Amer) Est GFR (Non-Af Amer) BUN/Creatinine Ratio Glucose POC Glucose 163 H 170 H Calcium Phosphorus Magnesium 09/26/20 09/26/20 09/26/20 07:15 07:31 07:31 WBC 10.65 RBC 3.30 L Hgb 9.2 L Hct 28.0 L MCV 84.8 MCH 27.9 MCHC 32.9 RDW Std Deviation 42.5 RDW Coeff of Ella 13.8 Plt Count 156 MPV 9.3 Immature Gran % (Auto) 0.3 Neut % (Auto) 66.5 Lymph % (Auto) 18.5 Hunt % (Auto) 11.9 Eos % (Auto) 2.5 Baso % (Auto) 0.3 Neut # (Auto) 7.08 H Lymph # (Auto) 1.97 Hunt # (Auto) 1.27 H Eos # (Auto) 0.27 Baso # (Auto) 0.03 Immature Gran # (Auto) 0.03 H Sodium 133 L Potassium 3.9 Chloride 101 Carbon Dioxide 27 Anion Gap 5.0 BUN 15 Creatinine 0.80 Est Cr Clr Drug Dosing 89.9 Est GFR ( Amer) 107.9 Est GFR (Non-Af Amer) 93.1 BUN/Creatinine Ratio 19.0 Glucose 150 H POC Glucose 154 H Calcium 8.8 Phosphorus 3.5 Magnesium 2.1 09/26/20 11:04 WBC RBC Hgb Hct MCV MCH MCHC RDW Std Deviation RDW Coeff of Ella Plt Count MPV Immature Gran % (Auto) Neut % (Auto) Lymph % (Auto) Hunt % (Auto) Eos % (Auto) Baso % (Auto) Neut # (Auto) Lymph # (Auto) Hunt # (Auto) Eos # (Auto) Baso # (Auto) Immature Gran # (Auto) Sodium Potassium Chloride Carbon Dioxide Anion Gap BUN Creatinine Est Cr Clr Drug Dosing Est GFR ( Amer) Est GFR (Non-Af Amer) BUN/Creatinine Ratio Glucose POC Glucose 237 H Calcium Phosphorus Magnesium PG Care Time/CCT Total # of Minutes Spent Total Time Spent with Patient: Total time spent is greater than 50% in coordination of care (as documented) at patient's floor/unit and/or counseling patient: Coding Level of Care Code 01822 Subseq Hosp Care Lvl 3 Diagnoses PAD (peripheral artery disease) I73.9
--- NOTE | 2020-09-26 23:49 | Hospitalist Progress Note ---
Date of Service September 26, 2020 Assessment & Plan (1) Arterial occlusion, lower extremity: (2) PAD (peripheral artery disease): Plan: This is a 65-year-old male with PMH of PAD with recent endovascular intervention with right SFA/popliteal arteries on 09/06/[address] Montejo, type 2 diabetes, dyslipidemia, hypertension, s/p pacemaker placement and other medical problems listed below who presents after vascular follow-up with right lower extremity pain and is s/p intra-arterial thrombolysis by Dr. Montejo. Status post endovascular intervention of right SFA/popliteal arteries on 09/06/2020 He was admitted today with acute right leg pain and occlusion of the SFA to popliteal Status post intra-arterial thrombolysis with successful placement of TPA catheter on 09/21/2020 Receiving intra-arterial TPA, intravenous heparin and also antiplatelet therapy Appreciate vascular surgery input and recommendation Status post second procedure by Dr. Montejo on 09/22/2020 Stent to proximal SFA Stent to popliteal Mechanical thrombectomy SFA Angioplasty 2 GORAN, peroneal and POTATO SPOTTER Plan for repeat attempted endovascular intervention to tibial arteries tomorrow. Continue heparin overnight. Continue clopidogrel and statin If unable to restore more blood flow to distal foot, will need to consider further evaluation by vascular surgery at [facility]. Flow Manager on board S/p repeat endovascular intervention perormed on 09/24/[address] Montejo Right lower extremity --widely patent SFA to popliteal stents. Mid GORAN occlusion. Slow flow in DPA via collaterals. Proximal POTATO SPOTTER occluded proximally with reconstitution at ankle. Peroneal widely patent. Successful angioplasty and stenting of mid GORAN occlusion with 2 overlapping drug-eluting stents (2.25 x 28 Xience, 2.25 x 30 [place]). Successful angioplasty of posterior tibial artery with 2.0 balloon Angioplasty of pedal arch with 1.5 and 2.0 balloons Final result: Three-vessel runoff to the ankle. Patent POTATO SPOTTER and lateral plantar artery in the foot. Patent DPA with sluggish flow. Case discussed with Dr. Montejo that recommended antiplatelet therapy with Plavix for now. If hemoglobin stable, will resume anticoagulation with Xarelto tomorrow Follow-up non-invasive vascular next week. 8/1 Hgb improved to 9.2 Case discussed with interventional vascular S/P 1 unit PRBC during hospital course CT abd/pelvis showed small right and trace left retroperitoneal hemorrhages Continue to hold Xarelto Will monitor H/H and if continue to drop, will consider to repeat the CT abd/pelvis (3) Acute leg pain: Plan: Secondary to right endovascular occlusion involving SFA/popliteal arteries Continue pain control Pain stable (4) Abnormal CT scan, kidney: Plan: CT abd/pelvis showed asymmetric cortical retention of IV contrast within the right kidney as compared to the left. There is a perfusion defect in the lower pole of the right kidney, as well as an well delineated low-attenuation defect in the upper pole of the spleen. These findings are indeterminant and not well assessed without IV contrast. These findings raise suspicion for infarction of the left kidney, with small infarcts also suspected in the right kidney and spleen. Case discussed with Nephrology ( no official consult ) recommended to continue monitor since pt has no symptoms Might consider to get a CTA abd pelvis for further eval if develop any symptoms or renal function declines (5) Diabetes mellitus, type II: Plan: Most recent hemoglobin A1c is 9.2 on 09/22/20 Continue to hold home agents Pharmacy on board for Glycemic management On Lantus and insulin sliding scale (6) HTN (hypertension): Plan: Continue home losartan, Toprol BP stable (7) CAD (coronary artery disease): Plan: Has atherosclerotic cardiovascular disease Stable H/o CABG in 2007 Continue statin and plavix Code status: FULL PCP: Emil Disposition Continue monitor in PCU Admission and Anticipated Discharge Date Admission Date: September 21, 2020 Subjective Pt was seen and examined for follow up of endovascular intervention and small retroperitoneal hemorrhage Lying in bed with no distress. Pt said that he feels well Denies any abdominal pain, hematuria or flank pain Physical Exam Physical Exam: General- No acute distress Head- atraumatic Eyes- PERRL, EOMI, ENT- oropharynx clear Neck- supple, no JVD Lungs- clear to auscultation Heart- regular rhythm; no murmur Abdomen- normal bowel sounds, soft, nontender Extremities- no calf tenderness, Deep ulcer right medial heel, Ulceration and discoloration of right 5th digit Neuro- alert, oriented x 3; PERRL, EOMI; no facial palsy; no dysarthria Skin- warm & dry Results & Data Results & Data ([facility]) Vital Signs (Past 12 Hours) Vital Signs Temp Pulse Pulse Resp BP Pulse Ox 09/26/20 23:39 36.7 C 70 17 150/73 H 94 09/26/20 20:34 36.7 C 76 18 143/72 H 95 09/26/20 15:18 75 09/26/20 15:07 37.1 C 75 18 121/76 96 (1) Acute leg pain Laterality: right Qualified Code(s): M79.604 - Pain in right leg
[2020-09-27] MEDS: CLOPIDOGREL BISULFATE 75 MG TAB PO SCH (08:31)
[2020-09-27] MEDS: ATORVASTATIN 40 MG TAB PO SCH (08:31)
[2020-09-27] MEDS: LOSARTAN POTASSIUM 25 MG TAB PO SCH (08:32)
[2020-09-27] MEDS: INSULIN GLARGINE SOLOSTAR 100 UNITS/ML 3 ML PEN SC SCH (08:32)
[2020-09-27] MEDS: INSULIN ASPART 100 UNITS/ML 3 ML PEN SC SCH ×2 (08:33→12:10)
[2020-09-27] MEDS: METOPROLOL SUCC 50MG EXT REL TAB PO SCH (08:33)
--- NOTE | 2020-09-27 09:14 | Vascular Medicine ProgressNote ---
Date of Service September 27, 2020 Assessment & Plan (1) PAD (peripheral artery disease): Plan: 2. RT heel ulceration, 5th digit ulcer 3. Type II diabetes complicated by peripheral neuropathy 4. 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 Hypertension, Dyslipidemia 6. Anemia--small right RP bleed on CT 7. Thrombocytopenia Pt discussed with Dr. Montejo. Patient post repeat endovascular intervention 09/24/20. Final result with three- vessel runoff to the ankle. RECTANGULAR TANK COOPER with direct flow into the foot. Still with sluggish flow in distal GORAN/DPA. Foot pain is significantly improved. On exam right foot is warm, pedal pulses present on doppler. From vascular standpoint OK to discharge home today. Plan for outpatient BRITTANY/TBI later this week. Hgb stable at 8.8. Platelets normalized. Continue clopidogrel. Plan to start Xarelto 20 mg daily. Will monitor anemia closely, followup labs on 09/30/20 at outpatient. Will also arrange followup with wound care center. Admission and Anticipated Discharge Date Admission Date: September 21, 2020 Subjective Patient feeling well this morning, no acute complaints. Minimal right foot pain. No chest pain, dyspnea, abdominal/flank pain. Telemetry reviewed-- No events Physical Exam Physical Exam: General: Comfortable, no acute distress Eyes: Sclerae anicteric Lungs: Clear to auscultation bilaterally Cardiac: Regular rate and rhythm, no murmurs Psych: Alert orient x3, normal affect and mood Extremities/Vascular: Right EXHIBITIONS AND COLLECTIONS MANAGER access site tender but soft with no hematoma --Right foot warm. Some mottling of toes/foot. Toes purplish hue with minimally reduced cap refill -- Right DP/PT nonpalpable, dopplerable DP/PT pulses on the right. 1+ DP left. --Deep ulcer right medial heel with necrotic appearance --Ulceration and dark purple discoloration of right 5th digit --Minimal discoloration right great medial toe Results & Data ([facility]) Vital Signs (Past 12 Hours) Vital Signs Temp Pulse Pulse Resp BP BP Pulse Ox 09/27/20 08:00 75 09/27/20 07:19 36.7 C 72 18 122/67 98 09/27/20 04:17 36.7 C 71 18 137/73 97 09/27/20 00:00 72 08/01/21 23:39 36.7 C 70 17 150/73 H 94 Diagnostic Findings Laboratory Results - last 24 hr 09/26/20 09/26/20 09/27/20 16:31 20:37 07:18 WBC RBC Hgb Hct MCV MCH MCHC RDW Std Deviation RDW Coeff of Ella Plt Count MPV Immature Gran % (Auto) Neut % (Auto) Lymph % (Auto) Howard % (Auto) Eos % (Auto) Baso % (Auto) Neut # (Auto) Lymph # (Auto) Howard # (Auto) Eos # (Auto) Baso # (Auto) Immature Gran # (Auto) Sodium Potassium Chloride Carbon Dioxide Anion Gap BUN Creatinine Est Cr Clr Drug Dosing Est GFR ( Amer) Est GFR (Non-Af Amer) BUN/Creatinine Ratio Glucose POC Glucose 104 H 79 139 H Calcium 09/27/20 09/27/20 09/27/20 09:09 09:09 11:34 WBC 10.23 RBC 3.15 L Hgb 8.8 L Hct 26.7 L MCV 84.8 MCH 27.9 MCHC 33.0 RDW Std Deviation 42.9 RDW Coeff of Ella 14.0 Plt Count 181 MPV 9.5 Immature Gran % (Auto) 0.5 Neut % (Auto) 76.5 Lymph % (Auto) 9.8 Howard % (Auto) 11.0 Eos % (Auto) 2.1 Baso % (Auto) 0.1 Neut # (Auto) 7.83 H Lymph # (Auto) 1.00 L Howard # (Auto) 1.13 H Eos # (Auto) 0.21 Baso # (Auto) 0.01 Immature Gran # (Auto) 0.05 H Sodium 131 L Potassium 4.3 Chloride 98 Carbon Dioxide 28 Anion Gap 5.0 BUN 13 Creatinine 0.84 Est Cr Clr Drug Dosing 85.0 Est GFR ( Amer) 105.7 Est GFR (Non-Af Amer) 91.2 BUN/Creatinine Ratio 15.5 Glucose 243 H POC Glucose 204 H Calcium 8.9 PG Care Time/CCT Total # of Minutes Spent Total Time Spent with Patient: Total time spent is greater than 50% in coordination of care (as documented) at patient's floor/unit and/or counseling patient: Coding Level of Care Code 08133 Subseq Hosp Care Lvl 3 Diagnoses PAD (peripheral artery disease) I73.9
[2020-09-27 09:28] LABS: Basophils # (auto) 0.01 K/uL (0-0.2); Basophils % (auto) 0.1 %; Eosinophils # (auto) 0.21 K/uL (0-0.5); Eosinophils % (auto) 2.1 %; Hematocrit (blood only) 26.7 % (42-52); Hemoglobin 8.8 g/dL (14.0-18.0); Immature Granulocytes # (auto) 0.05 K/uL (0.00-0.02); Immature Granulocytes % (auto) 0.5 %; Lymphocytes % (auto) 9.8 %; Mean Corpuscular Hemoglobin 27.9 pg (25-34); Mean Corpuscular Volume 84.8 fL (80-100); Mean Platelet Volume 9.5 fL (7.4-10.4); Monocytes # (auto) 1.13 K/uL (0.11-0.59); Neutrophils # (auto) 7.83 K/uL (1.4-6.5); Neutrophils % (auto) 76.5 %; Platelet Count 181 K/uL (130-400); RDW Standard Deviation 42.9 fL (36.4-46.3); Red Blood Count 3.15 M/uL (4.7-6.1); White Blood Count 10.23 K/uL (4.8-10.8)
[2020-09-27] MEDS: HYDROmorphone INJ 0.5 MG/0.5 ML SYR IV PRN (09:50)
[2020-09-27 09:53] LABS: BUN Creatinine Ratio 15.5 (10-20); Calcium 8.9 mg/dl (8.5-10.1); Est GFR (African American) 105.7 ml/min; Est GFR (Non-African American) 91.2 ml/min; Potassium 4.3 mmol/L (3.5-5.1)
[2020-09-27] MEDS: ACETAMINOPHEN 325 MG TAB PO PRN (09:57)
[2020-09-27] MEDS: traMADol HCL 50 MG TABLET PO PRN (10:35)
--- NOTE | 2020-09-27 15:13 | Hospitalist Progress Note ---
Date of Service September 27, 2020 Assessment & Plan (1) Arterial occlusion, lower extremity: (2) PAD (peripheral artery disease): Plan: This is a 65-year-old male with PMH of PAD with recent endovascular intervention with right SFA/popliteal arteries on 09/06/[address] Montejo, type 2 diabetes, dyslipidemia, hypertension, s/p pacemaker placement and other medical problems listed below who presents after vascular follow-up with right lower extremity pain and is s/p intra-arterial thrombolysis by Dr. Montejo. Status post endovascular intervention of right SFA/popliteal arteries on 09/06/2020 He was admitted today with acute right leg pain and occlusion of the SFA to popliteal Status post intra-arterial thrombolysis with successful placement of TPA catheter on 09/21/2020 Receiving intra-arterial TPA, intravenous heparin and also antiplatelet therapy Appreciate vascular surgery input and recommendation Status post second procedure by Dr. Montejo on 09/22/2020 Stent to proximal SFA Stent to popliteal Mechanical thrombectomy SFA Angioplasty 2 GORAN, peroneal and SURGICAL CONSULTANT Plan for repeat attempted endovascular intervention to tibial arteries tomorrow. Continue heparin overnight. Continue clopidogrel and statin If unable to restore more blood flow to distal foot, will need to consider further evaluation by vascular surgery at [facility]. Galvanometer Assembler on board S/p repeat endovascular intervention perormed on 09/24/[address] Montejo Right lower extremity --widely patent SFA to popliteal stents. Mid GORAN occlusion. Slow flow in DPA via collaterals. Proximal SURGICAL CONSULTANT occluded proximally with reconstitution at ankle. Peroneal widely patent. Successful angioplasty and stenting of mid GORAN occlusion with 2 overlapping drug-eluting stents (2.25 x 28 Xience, 2.25 x 30 Hudson). Successful angioplasty of posterior tibial artery with 2.0 balloon Angioplasty of pedal arch with 1.5 and 2.0 balloons Final result: Three-vessel runoff to the ankle. Patent SURGICAL CONSULTANT and lateral plantar artery in the foot. Patent DPA with sluggish flow. Case discussed with Dr. Montejo that recommended antiplatelet therapy with Plavix for now. If hemoglobin stable, will resume anticoagulation with Xarelto tomorrow Follow-up non-invasive vascular next week. 8/2 Hgb 8.8 on today Case discussed with interventional vascular S/P 1 unit PRBC during hospital course CT abd/pelvis showed small right and trace left retroperitoneal hemorrhages Will monitor H/H and if continue to drop, will consider to repeat the CT abd/pelvis Case discussed with vascular team that plan to start on Xarelto 20mg daily Ok from interventional vascular standpoint to discharge home Follow up labs on 09/30/20 at outpatient with vascular Follow up with wound care clinic (3) Acute leg pain: Plan: Secondary to right endovascular occlusion involving SFA/popliteal arteries Continue pain control Pain stable (4) Abnormal CT scan, kidney: Plan: CT abd/pelvis showed asymmetric cortical retention of IV contrast within the right kidney as compared to the left. There is a perfusion defect in the lower pole of the right kidney, as well as an well delineated low-attenuation defect in the upper pole of the spleen. These findings are indeterminant and not well assessed without IV contrast. These findings raise suspicion for infarction of the left kidney, with small infarcts also suspected in the right kidney and spleen. Case discussed with Nephrology ( no official consult ) recommended to continue monitor since pt has no symptoms Might consider to get a CTA abd pelvis for further eval if develop any symptoms or renal function declines (5) Diabetes mellitus, type II: Plan: Most recent hemoglobin A1c is 9.2 on 09/22/20 Continue to hold home agents Pharmacy on board for Glycemic management On Lantus and insulin sliding scale (6) HTN (hypertension): Plan: Continue home losartan, Toprol BP stable (7) CAD (coronary artery disease): Plan: Has atherosclerotic cardiovascular disease Stable H/o CABG in 2007 Continue statin and Plavix Ambulatory dysfunction Continue PT/OT eval PT on board recommended to use rolling walker Fall precaution Code status: FULL PCP: Emil Disposition Discharge home today Admission and Anticipated Discharge Date Admission Date: September 21, 2020 Subjective Pt was seen and examined for follow up of endovascular intervention and small retroperitoneal hemorrhage Sitting in chair with no distress comfortable Pt said that he feels ok yesterday he fell while using the walker He said that he did not hurt himself He was able to use the walker to walk with therapy today with no discomfort Denies any chest pain, palpitation, dizziness and SOB Physical Exam Physical Exam: General- No acute distress Head- atraumatic Eyes- PERRL, EOMI, ENT- oropharynx clear Neck- supple, no JVD Lungs- clear to auscultation Heart- regular rhythm; no murmur Abdomen- normal bowel sounds, soft, nontender Extremities- no calf tenderness, Deep ulcer right medial heel, Ulceration and discoloration of right 5th digit Neuro- alert, oriented x 3; PERRL, EOMI; no facial palsy; no dysarthria Skin- warm & dry Results & Data Results & Data ([facility]) Vital Signs (Past 12 Hours) Vital Signs Temp Pulse Pulse Resp BP BP Pulse Ox 09/27/20 11:34 36.9 C 65 18 112/68 98 09/27/20 08:00 75 09/27/20 07:19 36.7 C 72 18 122/67 98 09/27/20 04:17 36.7 C 71 18 137/73 97 (1) Acute leg pain Laterality: right Qualified Code(s): M79.604 - Pain in right leg
--- NOTE | 2020-10-05 01:50 | Discharge Summary ---
Date of Service September 27, 2020 Admission HPI Per Admitting Provider This is a 65-year-old male with PMH of PAD with recent endovascular intervention with right SFA/popliteal arteries on 09/06/[address] Montejo, type 2 diabetes, dyslipidemia, hypertension, s/p pacemaker placement and other medical problems listed below who presents after vascular follow-up with right lower extremity pain. Developed pain in her right lower extremity 5 days following endovascular procedure on right lower extremity. Describes pain as tight and squeezing in foot as well as tender to touch on lateral aspect of broussard. Also with worsening wound on R heel and new wound on R 5th toe. Has been taking clopidogrel and Xarelto 2.5 mg twice daily since procedure. Was seen for vascular follow-up today with Doppler findings concerning for acute limb ischemia with plans for intra-arterial thrombolysis today. Patient was evaluated in ER prior to procedure in cardiovascular suite. States that pain in right lower extremity was a 7 out of 10 and had been since that morning. Otherwise, feeling well. Denied any fever, chills, lightheadedness, headache, chest pain, shortness of breath, nausea, vomiting, abdominal pain, dysuria, diarrhea or constipation. Follows with PCP Dr. Stein. Admission Exam Per Admitting Provider General Appearance: WD/WN, vitals as above, NAD, sitting up in bed, pleasant, conversing easily Head: normocephalic, atraumatic Eyes: normal inspection, PERRL, conjunctivae normal, anicteric sclerae ENT: external ear and nose normal, oropharynx normal Neck: normal visual inspection, trachea midline, no thyromegaly Respiratory: normal respiratory effort, lungs clear to auscultation, no wheeze, rales, rhonchi. No accessory muscle use Cardiovascular: regular rate, rhythm, no murmur, normal peripheral pulses, no BLE edema. Vessels: no JVD Chest: normal inspection of chest Abdomen/GI: normal bowel sounds, soft, nontender, no hepatosplenomegaly Extremities/Musculoskeletal: R foot cool to touch, pain on palpation. Unable to palpate PT/DP pulses. Wound on R heel, new right 5th digit ulcer, diminished cap refill. Extremities motor strength 5/5 Neurologic: PERRL, EOMI, accommodation nl, no face palsy, no dysarthria, CN's II-XI intact bilaterally and moves all extremities Psychiatric: A+Ox3, euthymic affect Skin: no rashes, normal color, warm/dry Principal Diagnosis (1) Arterial occlusion, lower extremity: (2) PAD (peripheral artery disease): (3) Acute leg pain: (5) Diabetes mellitus, type II: (6) HTN (hypertension): (7) CAD (coronary artery disease): (8) Ambulatory dysfunction Discharge Exam General- No acute distress Head- atraumatic Eyes- PERRL, EOMI, ENT- oropharynx clear Neck- supple, no JVD Lungs- clear to auscultation Heart- regular rhythm; no murmur Abdomen- normal bowel sounds, soft, nontender Extremities- no calf tenderness, Deep ulcer right medial heel, Ulceration and discoloration of right 5th digit Neuro- alert, oriented x 3; PERRL, EOMI; no facial palsy; no dysarthria Skin- warm & dry Discharge Data Allergies Allergy/AdvReac Type Severity Reaction Status Date / Time penicillin G Allergy Intermediate Rash Verified 09/21/20 14:53 Consultations 09/21/20 14:39 ED Decision to Admit Stat 09/21/20 16:04 Consult Law Librarian Routine 09/21/20 18:11 Consult Cardiology Routine Procedures Performed Operation Date: 09/21/20 15:30 Actual Procedures p Angio Extremity Unilateral - Lauro Montejo MD s Ultrasound Vascular Access - Lauro Montejo MD s SC Select Cath ALEP 3rd Order - Lauro Montejo MD s Arterial ATP Cath Insertion - Lauro Montejo MD Operation Date: 09/22/20 10:00 Actual Procedures s IVUS Non Cors - Lauro Montejo MD p Fem Pop Stent Balloon Atherect - Lauro Montejo MD s Tibioperoneal Balloon Atherect - Lauro Montejo MD p Angio, Exissting Catheter(Right) - Lauro Montejo MD s Placement Art Occlusive Device - Lauro Montejo MD s SC IVUS Noncoronary Initial - Lauro Montejo MD s Tibioperoneal Balloon Each Additional - Lauro Montejo MD Operation Date: 09/24/20 09:30 Actual Procedures p Angio Extremity Unilateral - Lauro Montejo MD p IVUS Non Cors - Lauro Montejo MD s SC IVUS Noncoronary Initial - Lauro Montejo MD s Ultrasound Vascular Access - Lauro Montejo MD s Placement Art Occlusive Device - Lauro Montejo MD s Tibioperoneal Balloon Stent - Lauro Montejo MD Ordered Studies 09/21/20 14:55 CL Cath Imgs for PACS use only Stat 09/22/20 06:33 CL Cath Imgs for PACS use only Stat 09/22/20 09:34 CL IVUS Coronary Single Vessel Routine 09/23/20 10:00 US ankle/brachial index comp Stat 09/24/20 07:34 CL Cath Imgs for PACS use only Routine 09/25/20 09:07 CT abd pelvis wo con Routine CT SCAN OF THE ABDOMEN AND PELVIS WITHOUT IV CONTRAST CLINICAL HISTORY: Drop in hemoglobin. Clinical concern for hemorrhage. COMPARISON STUDY: No priors. TECHNIQUE: CT scan of the abdomen and pelvis is performed from the lung bases to the proximal femora. Images are reviewed in the axial, sagittal, and coronal planes. IV contrast was not administered for this examination. A dose lowering technique was utilized adhering to the principles of ALARA. CT DOSE: 543.80 mGy.cm FINDINGS: Lung bases: The patient is status post midline sternotomy. The heart is mildly enlarged and without pericardial effusion. Pacemaker leads are noted. The coronary arteries are densely calcified. A small hiatal hernia is noted. There is diminished attenuation of the cardiac blood pool as compared to the myocardium suggesting anemia. A fat-containing Bochdalek hernia is noted at the right lung base. The lung bases are otherwise clear noting bibasilar scarring/atelectasis. Liver: The unenhanced liver is normal in size, contour, and attenuation. There is no intrahepatic biliary ductal dilatation. Gallbladder: There are calcified gallstones. Vicariously excreted contrast is present within the gallbladder lumen. Spleen: The spleen is normal in size. There is approximately 3 cm low- attenuation defect identified in the upper pole. This is best seen on image #93. Pancreas: The unenhanced pancreas is mildly atrophic and grossly unremarkable. Adrenal glands: Unremarkable. Kidneys: The unenhanced kidneys demonstrate cortical atrophy and are without hydronephrosis. There is a 3 mm nonobstructing right renal calculus. There is no evidence of contour deforming renal mass lesion. There is asymmetrically retained cortical contrast in the right kidney as compared to the left. A perfusion defect is suggested in the right lower pole. Abdominal vasculature: The abdominal aorta is normal in course and caliber noting moderate atherosclerotic calcification. A stent is partially visualized in the right femoral artery. Bowel: There is mild to moderate colonic diverticulosis without CT evidence of acute diverticulitis. No bowel obstruction is seen. There is moderate colonic fecal retention. The appendix is well-visualized and normal. Peritoneum/retroperitoneum: There is a small retroperitoneal hemorrhage identified on the right. This tracks along the right psoas muscle into the right groin. This measures approximately 6 x 2 cm in axial dimension as seen on image #254. Trace retroperitoneal hemorrhage is seen in the left paracolic gutter. No intraperitoneal hemorrhage or abdominal ascites is identified. No intraperitoneal free air is identified. There is a fat-containing umbilical hernia. Lymphadenopathy: None. Pelvic viscera: The prostate gland is enlarged and heterogeneous noting median lobe hypertrophy. The bladder wall is thickened and trabeculated indicating chronic outlet obstruction. The bladder is filled with excreted contrast. Soft tissue infiltration is noted in the groin bilaterally. Skeletal structures: The skeletal structures are osteopenic. There is moderate lumbosacral spondylosis. No lytic or blastic lesions are seen. IMPRESSION: 1. There are small right and trace left retroperitoneal hemorrhages as detailed above. 2. There is asymmetric cortical retention of IV contrast within the right kidney as compared to the left. There is a perfusion defect in the lower pole of the right kidney, as well as an well delineated low-attenuation defect in the upper pole of the spleen. These findings are indeterminant and not well assessed without IV contrast. These findings raise suspicion for infarction of the left kidney, with small infarcts also suspected in the right kidney and spleen. Clinical correlation will be essential. A contrast-enhanced examination would be required for further assessment. 3. Cholelithiasis and right-sided nephrolithiasis. 4. Colonic diverticulosis without CT evidence of acute diverticulitis. 5. Cardiomegaly. 6. Additional findings as above. ACT 112: Negative or not required by law. Electronically signed by: Gianluca Decker M.D. 09/25/2020 11:04 AM Dictated: 09/25/20 1051Transcribed: 09/25/20 105 US ankle/brachial index comp CLINICAL HISTORY: recent endovascular intervention. Lower extremity pain. WITH TOE PRESSURE COMPARISON STUDY: None. FINDINGS: The right ankle-brachial index measured with the dorsalis pedis artery was 0.38 in the posterior tibial artery was 0.46. The left ankle-brachial index measured with the dorsalis pedis artery was 0.59 in the posterior tibial artery was 0.67. The right toe brachial index was 0.01 and the left toe brachial index was 0.49. IMPRESSION: Abnormally low bilateral ankle brachial and toe brachial indices as described above. ACT 112: Negative or not required by law. Electronically signed by: Juan Jose Padilla M.D. 09/23/2020 11:04 AM Dictated: 09/23/20 110Transcribed: 09/23/20 1103 Hospital Course (1) Arterial occlusion, lower extremity: (2) PAD (peripheral artery disease): This is a 65-year-old male with PMH of PAD with recent endovascular intervention with right SFA/popliteal arteries on 09/06/[address] Montejo, type 2 diabetes, dyslipidemia, hypertension, s/p pacemaker placement and other medical problems listed below who presents after vascular follow-up with right lower extremity pain and is s/p intra-arterial thrombolysis by Dr. Montejo. Status post endovascular intervention of right SFA/popliteal arteries on 09/06/2020 He was admitted today with acute right leg pain and occlusion of the SFA to popliteal Status post intra-arterial thrombolysis with successful placement of TPA catheter on 09/21/2020 Receiving intra-arterial TPA, intravenous heparin and also antiplatelet therapy Appreciate vascular surgery input and recommendation Status post second procedure by Dr. Montejo on 09/22/2020 Stent to proximal SFA Stent to popliteal Mechanical thrombectomy SFA Angioplasty 2 GORAN, peroneal and EDUCATIONAL ASSISTANT Plan for repeat attempted endovascular intervention to tibial arteries tomorrow. Continue heparin overnight. Continue clopidogrel and statin If unable to restore more blood flow to distal foot, will need to consider further evaluation by vascular surgery at [facility]. Law Librarian on board S/p repeat endovascular intervention perormed on 09/24/[address] Montejo Right lower extremity --widely patent SFA to popliteal stents. Mid GORAN occlusion. Slow flow in DPA via collaterals. Proximal EDUCATIONAL ASSISTANT occluded proximally with reconstitution at ankle. Peroneal widely patent. Successful angioplasty and stenting of mid GORAN occlusion with 2 overlapping drug-eluting stents (2.25 x 28 [place], 2.25 x 30 [place]). Successful angioplasty of posterior tibial artery with 2.0 balloon Angioplasty of pedal arch with 1.5 and 2.0 balloons Final result: Three-vessel runoff to the ankle. Patent EDUCATIONAL ASSISTANT and lateral plantar artery in the foot. Patent DPA with sluggish flow. Case discussed with Dr. Montejo that recommended antiplatelet therapy with Plavix for now. If hemoglobin stable, will resume anticoagulation with Xarelto tomorrow Follow-up non-invasive vascular next week. 8/2 Hgb 8.8 on today Case discussed with interventional vascular S/P 1 unit PRBC during hospital course CT abd/pelvis showed small right and trace left retroperitoneal hemorrhages Will monitor H/H and if continue to drop, will consider to repeat the CT abd/pelvis Case discussed with vascular team that plan to start on Xarelto 20mg daily Ok from interventional vascular standpoint to discharge home Follow up labs on 09/30/20 at outpatient with vascular Follow up with wound care clinic (3) Acute leg pain: Secondary to right endovascular occlusion involving SFA/popliteal arteries Continue pain control Pain stable (4) Abnormal CT scan, kidney: CT abd/pelvis showed asymmetric cortical retention of IV contrast within the right kidney as compared to the left. There is a perfusion defect in the lower pole of the right kidney, as well as an well delineated low-attenuation defect in the upper pole of the spleen. These findings are indeterminant and not well assessed without IV contrast. These findings raise suspicion for infarction of the left kidney, with small infarcts also suspected in the right kidney and spleen. Case discussed with Nephrology ( no official consult ) recommended to continue monitor since pt has no symptoms Might consider to get a CTA abd pelvis for further eval if develop any symptoms or renal function declines (5) Diabetes mellitus, type II: Most recent hemoglobin A1c is 9.2 on 09/22/20 Continue to hold home agents Pharmacy on board for Glycemic management On Lantus and insulin sliding scale (6) HTN (hypertension): Continue home losartan, Toprol BP stable (7) CAD (coronary artery disease): Has atherosclerotic cardiovascular disease Stable H/o CABG in 2007 Continue statin and Plavix Ambulatory dysfunction Continue PT/OT eval PT on board recommended to use rolling walker Fall precaution Code status: FULL PCP: Stein Disposition Discharge home today Total Time Total Time Spent Total Time Spent (In Minutes): 35 minutes Discharge Plan Discharge Items Patient Disposition: Home - Self-Care Reason For Visit: RLE LIM[place] ISCHEMIA Discharge Diagnosis: (1) Arterial occlusion, lower extremity: (2) PAD (peripheral artery disease): (3) Acute leg pain: (5) Diabetes mellitus, type II: (6) HTN (hypertension): (7) CAD (coronary artery disease): (8) Ambulatory dysfunction Activity: Resume your previous activity Non-emergency contact: Primary Care Provider and Specialist Call non-emergency contact if: you have any medication questions Follow-up/Referrals: Carol Stein MD [Primary Care Provider] - Diet: Carb Consistent or DM2 Addtl Attending Provider Instructions: Follow up with your primary care provider within 1 week Follow with interventional vascular on 09/30/20 with Santa Metcalf PA-C Check CBC on to monitor your hemoglobin Follow up with wound care clinic Continue daily wound care Continue using the rolling walker for ambulation Fall precaution Follow a health diabetes diet and limited concentrated sweet intake Pending Studies at Discharge: No Stand-Alone Forms: My [facility] datapine, Smoking Cessation Medications and DC Order Prescriptions: Continued metformin 850 mg tablet 850 mg PO TID RF: 0 losartan 25 mg tablet 12.5 mg PO QAM RF: 0 metoprolol succinate 50 mg capsule,sprinkle,ER 24hr 75 mg PO QAM RF: 0 nitroglycerin 0.4 mg tablet, sublingual 0.4 mg SL Q5M PRN (Reason: Chest Pain) RF: 0 tramadol 50 mg tablet 50 mg PO BID PRN (Reason: pain) Qty: 7 RF: 0 clopidogrel 75 mg tablet 75 mg PO QAM Qty: 90 RF: 1 ascorbic acid (vitamin C) [Vitamin C] 500 mg Tablet 500 mg PO QAM RF: 0 cholecalciferol (vitamin D3) [Vitamin D3] 25 mcg (1,000 unit) Tablet 25 mcg PO QAM RF: 0 glipizide 5 mg Tablet 5 mg PO QAM RF: 0 doxycycline hyclate 100 mg tablet 100 mg PO 3XWK RF: 0 atorvastatin 80 mg tablet 80 mg PO DAILY RF: 0 Januvia 100 mg tablet 100 mg PO DAILY RF: 0 multivitamin Tablet 1 tab PO QAM RF: 0 Discontinued Xarelto 2.5 mg tablet 2.5 mg PO BID Qty: 60 RF: 0 No Action Xarelto 20 mg tablet 20 mg PO DAILY Qty: 30 RF: 8 Discharge Orders: Discharge Order (Routine); Ordered 09/27/20 Ordered By: Alma Hayes Admission Data Admit Date/Time: 09/21/20 15:13 Attending Provider: Alma Hayes Admit Provider: Miri Vela Primary Care Provider: Carol Stein Other Providers: Alma Hayes ; Miri Vela ; Pete Elizabeth ; Lauro Montejo ; Richard Alas Other Interventions: Discharge Summary Assessment (RN) Last Done: 09/27/20 16:19
== END 2020-09-27 16:48 | disposition home or self-care (01) | DRG 271 ==
LOC: ED 13:57 → SUATTDRO 15:13 → OR 15:30 → 1E 15:31 → 2S 09-25 16:43
PROC: CLB.AEU (2020-09-21 15:30)